=== PATIENT | male | born 1960 | race Caucasian/White ===

== ENCOUNTER → 2016-07-13 | Outpatient (CLI) | payer MEDICARE ==
[2016-07-13 08:53] LABS: HEMATOCRIT 41.9 % (37.9-51.0); HEMOGLOBIN 13.8 g/dL (13.5-17.0); HGB HCT DIFFERENCE -0.5; MEAN CORPUSCULAR HEMOGLOBIN 30.2 pg (27.0-33.4); MEAN CORPUSCULAR HGB CONC 32.9 g/dL (32.0-36.0); MEAN CORPUSCULAR VOLUME 92 fl (80-97); RED BLOOD COUNT 4.57 10^6/uL (4.35-5.55); RED CELL DISTRIBUTION WIDTH 14.7 % (11.5-14.0); WHITE BLOOD COUNT 8.1 10^3/uL (4.0-10.5)
[2016-07-13 09:08] LABS: APPEARANCE,URINE CLOUDY; BILIRUBIN,URINE NEGATIVE (NEGATIVE); GLUCOSE, URINE >=500 mg/dL (NEGATIVE); KETONES,URINE NEGATIVE (NEGATIVE); LEUKOCYTE ESTERASE,URINE LARGE (NEGATIVE); NITRITE,URINE NEGATIVE (NEGATIVE); PROTEIN,URINE 100 mg/dL (NEGATIVE); URINE SPECIFIC GRAVITY 1.012; UROBILINOGEN,URINE NEGATIVE mg/dL (<2.0)
[2016-07-13 09:38] LABS: ANION GAP 15 (5-19); BLOOD UREA NITROGEN 24 mg/dL (7-20); CARBON DIOXIDE 23 mmol/L (22-30); CHLORIDE 104 mmol/L (98-107); CREATININE RESULT 2.45 mg/dL (0.52-1.25); GLUCOSE 251 mg/dL (75-110); POTASSIUM 4.3 mmol/L (3.6-5.0); SODIUM 142.3 mmol/L (137-145)
== END ==
LOC: OD 07:41
PROVIDERS: ATTEND Internal Medicine Nephrology
DX: I12.9 Hypertensive chronic kidney disease with stage 1 through stage 4 chronic kidney disease, or unspecified chronic kidney disease (principal); N18.2 Chronic kidney disease, stage 2 (mild); E11.9 Type 2 diabetes mellitus without complications; R80.9 Proteinuria, unspecified
CPT/HCPCS: 36415; 80048; 81001; 85027

== ENCOUNTER 2016-07-31 15:39 | Inpatient (IN) | payer MEDICARE ==
--- NOTE | 2016-07-31 17:18 | ER Document Report ---
ED Medical Screen (RME) - General Chief Complaint: Shortness Of Breath Stated Complaint: DIFFICULTY BREATHING Time Seen by Provider: 07/31/16 17:15 Mode of Arrival: Ambulatory Information source: Patient Notes: pt presents with SOB for 3 days. Obese, reports he is normally not SOB when ambulating but 3 days ago he started to have problems when walking. Denies f/v/ d, reports slight cough, hx enlarged heart, HTN, DM1 TRAVEL OUTSIDE OF THE [place] IN LAST 30 DAYS: No - Related Data Allergies/Adverse Reactions: amoxicillin trihydrate [From Amoxil] Allergy (Verified 07/31/16 15:58) Generalized rash mushrooms Allergy (Severe, Uncoded 07/31/16 15:58) Edema Past Medical History - Social History Family history: CAD, CVA, Hyperlipidemia, Hypertension, Malignancy - Past Medical History Cardiac Medical History: Reports: Hx Congestive Heart Failure - 2011 diastolic with pulmonary [id number] and Bmp7k, Hx Hypercholesterolemia, Hx Hypertension Pulmonary Medical History: Reports: Hx Asthma - fev=51% adviar$ albuterol prn, Hx Bronchitis, Hx Pneumonia Denies: Hx Tuberculosis Endocrine Medical History: Reports: Hx Diabetes Mellitus Type 1, Hx Diabetes Mellitus Type 2, Hx Hypothyroidism Renal/ Medical History: Reports: Hx Kidney Stones, Hx Renal Insufficiency - 25 %. Denies: Hx Peritoneal Dialysis Psychiatric Medical History: Reports: Hx Depression Past Surgical History: Reports: Hx Herniorrhaphy, Hx Kidney (Renal Surgery) - lithotripsy, Hx Umbilical Hernia, Other - lithtripsy. Denies: Hx Pacemaker - Immunizations Immunizations up to date: Yes Hx Diphtheria, Pertussis, Tetanus Vaccination: No Physical Exam - Vital signs Vitals: Pulse Resp BP Pulse Ox 94 20 150/84 H 95 07/31/16 15:58 07/31/16 15:58 07/31/16 15:58 07/31/16 15:58 Course - Vital Signs Vital signs: Temp Pulse Resp BP Pulse Ox 97.5 F 94 20 150/84 H 95 07/31/16 16:01 07/31/16 15:58 07/31/16 15:58 07/31/16 15:58 07/31/16 15:58
[2016-07-31 18:12] LABS: ABSOLUTE BASOPHILS # (AUTO) 0.1 10^3/uL (0.0-0.2); ABSOLUTE EOSINOPHILS # (AUTO) 0.5 10^3/uL (0.0-0.6); ABSOLUTE MONOCYTES (AUTO) 0.5 10^3/uL (0.1-1.4); ABSOLUTE NEUT (AUTO) 7.5 10^3/uL (1.7-8.2); EOSINOPHILS % (AUTO) 4.7 % (0-6); HEMATOCRIT 42.1 % (37.9-51.0); HEMOGLOBIN 13.6 g/dL (13.5-17.0); HGB HCT DIFFERENCE -1.3; LYMPHOCYTES % (AUTO) 18.7 % (13-45); MEAN CORPUSCULAR HEMOGLOBIN 29.8 pg (27.0-33.4); MEAN CORPUSCULAR HGB CONC 32.2 g/dL (32.0-36.0); MEAN CORPUSCULAR VOLUME 93 fl (80-97); RED BLOOD COUNT 4.55 10^6/uL (4.35-5.55); SEGMENTED NEUTROPHILS % (AUTO) 70.6 % (42-78); WHITE BLOOD COUNT 10.7 10^3/uL (4.0-10.5)
[2016-07-31 18:21] LABS: ALANINE AMINOTRANSFERASE 31 U/L (21-72); ALBUMIN 3.6 g/dL (3.5-5.0); ALKALINE PHOSPHATASE 91 U/L (38-126); ANION GAP 14 (5-19); ASPARTATE AMINO TRANSFERASE 23 U/L (17-59); BILIRUBIN,DIRECT 0.4 mg/dL (0.0-0.4); BILIRUBIN,TOTAL 0.6 mg/dL (0.2-1.3); BLOOD UREA NITROGEN 22 mg/dL (7-20); CALCIUM 9.4 mg/dL (8.4-10.2); CARBON DIOXIDE 23 mmol/L (22-30); CHLORIDE 106 mmol/L (98-107); CREATININE RESULT 2.57 mg/dL (0.52-1.25); GLUCOSE 239 mg/dL (75-110); POTASSIUM 3.9 mmol/L (3.6-5.0); SODIUM 142.5 mmol/L (137-145); TOTAL PROTEIN 7.1 g/dL (6.3-8.2)
--- NOTE | 2016-07-31 19:04 | ER Document Report ---
ED General - General Chief Complaint: Shortness Of Breath Stated Complaint: DIFFICULTY BREATHING Time Seen by Provider: 07/31/16 17:15 Mode of Arrival: Ambulatory Notes: Patient is a 56-year-old male with past mental history of morbid obesity, hypertension, hyperlipidemia, CHF who presents with 3 days of progressively worsening exertional dyspnea. States that he becomes very short of breath with minimal exertion at this is not normal for him. Noticed it does resolve after he rests. He denies any associated chest pain, nausea, vomiting or diaphoresis. Denies any pleuritic pain. Nothing improves or worsens his symptoms. He has not seen his primary care doctor regarding today's concerns. Denies a history of similar symptoms in the past. TRAVEL OUTSIDE OF THE [place] IN LAST 30 DAYS: No - Related Data Allergies/Adverse Reactions: amoxicillin trihydrate [From Amoxil] Allergy (Verified 07/31/16 15:58) Generalized rash mushrooms Allergy (Severe, Uncoded 07/31/16 15:58) Edema Past Medical History - General Information source: Patient - Social History Smoking Status: Never Smoker Frequency of alcohol use: None Drug Abuse: None Lives with: Alone Family History: Arthritis, CAD, DM, Hyperlipidemia, Hypertension, Malignancy Patient has suicidal ideation: No Patient has homicidal ideation: No - Past Medical History Cardiac Medical History: Reports: Hx Congestive Heart Failure - 2011 diastolic with pulmonary [id number] and Bmp7k, Hx Hypercholesterolemia, Hx Hypertension Pulmonary Medical History: Reports: Hx Asthma - fev=51% adviar$ albuterol prn, Hx Bronchitis, Hx Pneumonia Denies: Hx Tuberculosis Endocrine Medical History: Reports: Hx Diabetes Mellitus Type 1, Hx Diabetes Mellitus Type 2, Hx Hypothyroidism Renal/ Medical History: Reports: Hx Kidney Stones, Hx Renal Insufficiency - 25 %. Denies: Hx Peritoneal Dialysis Psychiatric Medical History: Reports: Hx Depression Past Surgical History: Reports: Hx Herniorrhaphy, Hx Kidney (Renal Surgery) - lithotripsy, Hx Umbilical Hernia, Other - lithtripsy. Denies: Hx Pacemaker - Immunizations Immunizations up to date: Yes Hx Diphtheria, Pertussis, Tetanus Vaccination: No Hx Pneumococcal Vaccination: 03/25/11 Review of Systems - Review of Systems Notes: Constitutional: Negative for fever. HENT: Negative for sore throat. Eyes: Negative for visual changes. Cardiovascular: Negative for chest pain. Respiratory: Positive for shortness of breath. Gastrointestinal: Negative for abdominal pain, vomiting or diarrhea. Genitourinary: Negative for dysuria. Musculoskeletal: Negative for back pain. Skin: Negative for rash. Neurological: Negative for headaches, weakness or numbness. 10 point ROS negative except as marked above and in HPI. Physical Exam - Vital signs Vitals: Pulse Resp BP Pulse Ox 94 20 150/84 H 95 07/31/16 15:58 07/31/16 15:58 07/31/16 15:58 07/31/16 15:58 Interpretation: Hypertensive Notes: PHYSICAL EXAMINATION: GENERAL: Morbidly obese. Well-appearing, well-nourished and in no acute distress. HEAD: Atraumatic, normocephalic. EYES: Pupils equal round and reactive to light, extraocular movements intact, sclera anicteric, conjunctiva are normal. ENT: nares patent, oropharynx clear without exudates. Moist mucous membranes. NECK: Normal range of motion, supple without lymphadenopathy LUNGS: Breath sounds clear to auscultation bilaterally and equal. No wheezes rales or rhonchi. HEART: Regular rate and rhythm without murmurs ABDOMEN: Soft, nontender, normoactive bowel sounds. No guarding, no rebound. No masses appreciated. EXTREMITIES: Normal range of motion, 2+ pitting edema in the bilateral lower extremities NEUROLOGICAL: No focal neurological deficits. Trace edema in the bilateral lower extremities PSYCH: Normal mood, normal affect. SKIN: Warm, Dry, normal turgor, no rashes or lesions noted. Course - Re-evaluation Re-evalutation: 07/31/16 19:01 Patient presents with exertional dyspnea for the past 3 days. No tachypnea, tachycardia, or hypoxemia at the time of my assessment. Patient was not tachypneic at time of arrival but this does resolve if he rests. He denies any chest pain and his EKG does not show any ischemic changes. Troponin is pending. His pro BNP is markedly elevated which it has not been in the past though there is no evidence of vascular congestion on exam or on chest x-ray. He has no overt pitting edema although he does have trace edema in the bilateral lower extremities which she states is baseline. Patient's clinical history is not consistent with an acute pulmonary embolus as he has no dyspnea at rest, denies any pleuritic pain, and has no lower extremity swelling. Likewise he is not tachycardic or hypoxemic. No evidence of right axis deviation or right bundle branch block on EKG. Will therefore not proceed with further evaluation for this diagnosis. I think the most likely diagnosis at this point is progressive cardiomyopathy from patient's morbid obesity and uncontrolled hypertension. This is supported by patient's markedly elevated proBNP as well as his symptoms. An alternative consideration would be coronary artery disease with anginal symptoms manifested as shortness of breath with exertion. Again this would not be consistent with unstable angina as his symptoms do completely resolve with rest. 2049-patient's troponin is in the indeterminate range at 0.05 which is not a chronic elevation for him. He remains without chest pain. However given his elevation he will be admitted to the hospital. I discussed with Dr. Luna who will admit the patient. The patient has been started on IV Lasix and has been given a dose of aspirin. - Vital Signs Vital signs: Temp Pulse Resp BP Pulse Ox 97.3 F 86 20 162/101 H 96 07/31/16 23:18 07/31/16 23:18 07/31/16 23:18 07/31/16 23:18 07/31/16 23:18 - Laboratory Result Diagrams: 07/31/16 17:57 07/31/16 17:57 Laboratory results interpreted by me: 07/31/16 07/31/16 07/31/16 17:57 17:57 17:57 WBC 10.7 H RDW 15.0 H BUN 22 H Creatinine 2.57 H Est GFR ( Amer) 31 L Est GFR (Non-Af Amer) 26 L Glucose 239 H NT-Pro-B Natriuret Pep 5480 H - Diagnostic Test Radiology reviewed: Image reviewed, Reports reviewed Radiology results interpreted by de: 07/31/16 20:51 Chest x-ray: Increased vascular congestion and cardiomegaly without overt pulmonary edema - EKG Interpretation by Me Additional EKG results interpreted by de: 07/31/16 20:51 Normal sinus rhythm. Rate 87. PVCs. No ST elevations or depressions. QTC is 472. Discharge - Discharge Clinical Impression: Elevated troponin CHF exacerbation Qualifiers: Congestive heart failure type: unspecified congestive heart failure type Qualified Code(s): I50.9 - Heart failure, unspecified Condition: Fair Disposition: ADMITTED INPATIENT Admitting Provider: Jeremy Unit Admitted: Telemetry
[2016-07-31] MEDS ORDERED: FUROSEMIDE INJ/PF 20 MG/2 ML SDV IV ONE (20:37)
[2016-07-31] MEDS ORDERED: ASPIRIN 81 MG TABLET, CHEWABLE PO ONE (20:38)
--- NOTE | 2016-07-31 22:05 | EKG REPORT ---
SEVERITY:- ABNORMAL ECG - SINUS RHYTHM VENTRICULAR PREMATURE COMPLEX LEFT ANTERIOR FASCICULAR BLOCK BORDERLINE R WAVE PROGRESSION, ANTERIOR LEADS BORDERLINE T ABNORMALITIES, ANT-LAT LEADS : Confirmed by: Leah Lees 31-Jul-2016 22:03:58
[2016-08-01] MEDS ORDERED: METOPROLOL TARTRATE 50 MG TABLET PO ONE (01:00)
[2016-08-01 04:34] LABS: ANION GAP 13 (5-19); BLOOD UREA NITROGEN 23 mg/dL (7-20); CALCIUM 8.9 mg/dL (8.4-10.2); CARBON DIOXIDE 22 mmol/L (22-30); CHLORIDE 107 mmol/L (98-107); CREATININE RESULT 2.61 mg/dL (0.52-1.25); GLUCOSE 164 mg/dL (75-110); POTASSIUM 3.8 mmol/L (3.6-5.0); SODIUM 142.1 mmol/L (137-145)
[2016-08-01] MEDS ORDERED: GLUCAGON,HUMAN RECOMB 1 MG INJ IM PRN (05:25)
[2016-08-01] MEDS ORDERED: DEXTROSE 40% GEL 15 GM TUBE PO PRN ×2 (05:25)
[2016-08-01] MEDS ORDERED: DEXTROSE 50%-WATER 25 GM/50 ML DISP.SYRIN IV PRN ×2 (05:25)
[2016-08-01] MEDS: METOCLOPRAMIDE HCL 10 MG TABLET PO SCH ×4 (07:43→22:05)
[2016-08-01] MEDS: ENOXAPARIN SODIUM INJ 30 MG/0.3 ML DISP.SYRIN SUBCUT SCH (07:45)
[2016-08-01] MEDS: HUM INSULIN NPH/REG INSULIN HM 100 UNIT/1 ML 3 ML SUBCUT SCH ×2 (07:47→17:59)
--- NOTE | 2016-08-01 08:26 | PDOC H&P ---
History of Present Illness Admission Date/PCP: 08/01/16 00:27 BAILEY GARCIA MD Patient complains of: 1 week increased campa History of Present Illness: SANTA SANTANA is a 56 year old male with morbid obesity, diastolic failure, pulmonary hypertension, & lymphedema on disability since 2005 for that. He was on furosemide 20mg qd till february admission for [facility] with cr3.3. Now campa without pnd. Past Medical History Cardiac Medical History: Reports: Congestive Heart Failure - acute & chronic diastolic, DVT, Hyperlipidema, Hypertension Pulmonary Medical History: Reports: Asthma, Bronchitis, Pneumonia Denies: Tuberculosis Endocrine Medical History: Reports: Diabetes Mellitus Type 2, Hypothyroidism Renal/ Medical History: Reports: Chronic Kidney Disease Malignancy Medical History: Reports: None GI Medical History: Reports: Other - gastroparesis Musculoskeltal Medical History: Reports: None Psychiatric Medical History: Reports: Depression Past Surgical History Past Surgical History: Reports: Herniorrhaphy, Other - lithtripsy Denies: Pacemaker Social History Information Source: Office Lives with: Alone Smoking Status: Never Smoker Frequency of Alcohol Use: None Hx Recreational Drug Use: No Drugs: None Hx Prescription Drug Abuse: No - Advance Directive Resuscitation Status: Full Code Family History Family History: Arthritis, CAD, DM, Hyperlipidemia, Hypertension, Malignancy Parental Family History Reviewed: Yes Children Family History Reviewed: Yes Sibling(s) Family History Reviewed.: Yes Medication/Allergy Home Medications: Amlodipine Besylate [Norvasc 5 mg Tablet] 5 mg PO DAILY 08/01/16 Aspirin [Aspirin 81 mg Chewable Tablet] 81 mg PO DAILY 08/01/16 Hum Insulin NPH/Reg Insulin Hm [Novolin 70-30 100 Unit/Ml Vial] 100 unit SQ BID 08/01/16 Lactulose 20 gm PO DAILY 08/01/16 Levothyroxine Sodium [Synthroid] 50 mcg PO DAILY 08/01/16 Losartan Potassium [Cozaar 25 mg Tablet] 25 mg PO DAILY 08/01/16 Metoclopramide HCl [Reglan] 10 mg PO ACHS 08/01/16 Simvastatin [Zocor 20 mg Tablet] 20 mg PO QHS 08/01/16 Allergies/Adverse Reactions: amoxicillin trihydrate [From Amoxil] Allergy (Verified 07/31/16 15:58) Generalized rash mushrooms Allergy (Severe, Uncoded 07/31/16 15:58) Edema Review of Systems Constitutional: ABSENT: fever(s), headache(s) Nose, Mouth, and Throat: ABSENT: sore throat Cardiovascular: PRESENT: dyspnea on exertion, edema. ABSENT: chest pain, orthropnea Respiratory: PRESENT: cough. ABSENT: sputum Gastrointestinal: PRESENT: constipation. ABSENT: abdominal pain, diarrhea, hematochezia, melena, vomiting Genitourinary: ABSENT: difficulty urinating, dysuria, hematuria Physical Exam Vital Signs: Temp Pulse Resp BP Pulse Ox 97.2 F 76 19 137/89 H 91 L 08/01/16 04:00 08/01/16 04:00 08/01/16 04:00 08/01/16 04:00 08/01/16 04:00 Intake & Output 07/31/16 08/01/16 08/02/16 07:59 07:59 07:59 Intake Total 400 Output Total 550 Balance -150 General appearance: PRESENT: no acute distress Neck exam: ABSENT: lymphadenopathy, meningismus, tenderness, thyromegaly, tracheal deviation Respiratory exam: PRESENT: clear to auscultation jose Cardiovascular exam: ABSENT: diastolic murmur, irregular rhythm, systolic murmur GI/Abdominal exam: ABSENT: mass, organolmegaly, tenderness Extremities exam: PRESENT: pedal edema - 2+ Neurological exam: PRESENT: oriented to situation Psychiatric exam: PRESENT: appropriate affect Results Laboratory Results: 08/01/16 03:56 Labs- Last Values WBC 10.7 10^3/uL (4.0-10.5) H 07/31/16 17:57 RBC 4.55 10^6/uL (4.35-5.55) 07/31/16 17:57 Hgb 13.6 g/dL (13.5-17.0) 07/31/16 17:57 Hct 42.1 % (37.9-51.0) 07/31/16 17:57 MCV 93 fl (80-97) 07/31/16 17:57 MCH 29.8 pg (27.0-33.4) 07/31/16 17:57 MCHC 32.2 g/dL (32.0-36.0) 07/31/16 17:57 RDW 15.0 % (11.5-14.0) H 07/31/16 17:57 Plt Count 227 10^3/uL (150-450) 07/31/16 17:57 Seg Neutrophils % 70.6 % (42-78) 07/31/16 17:57 Lymphocytes % 18.7 % (13-45) 07/31/16 17:57 Monocytes % 5.0 % (3-13) 07/31/16 17:57 Eosinophils % 4.7 % (0-6) 07/31/16 17:57 Basophils % 1.0 % (0-2) 07/31/16 17:57 Absolute Neutrophils 7.5 10^3/uL (1.7-8.2) 07/31/16 17:57 Absolute Lymphocytes 2.0 10^3/uL (0.5-4.7) 07/31/16 17:57 Absolute Monocytes 0.5 10^3/uL (0.1-1.4) 07/31/16 17:57 Absolute Eosinophils 0.5 10^3/uL (0.0-0.6) 07/31/16 17:57 Absolute Basophils 0.1 10^3/uL (0.0-0.2) 07/31/16 17:57 Sodium 142.1 mmol/L (137-145) 08/01/16 03:56 Potassium 3.8 mmol/L (3.6-5.0) 08/01/16 03:56 Chloride 107 mmol/L (98-107) 08/01/16 03:56 Carbon Dioxide 22 mmol/L (22-30) 08/01/16 03:56 Anion Gap 13 (5-19) 08/01/16 03:56 BUN 23 mg/dL (7-20) H 08/01/16 03:56 Creatinine 2.61 mg/dL (0.52-1.25) H 08/01/16 03:56 Est GFR ( Amer) 31 (>60) L 08/01/16 03:56 Est GFR (Non-Af Amer) 25 (>60) L 08/01/16 03:56 Glucose 164 mg/dL (75-110) H 08/01/16 03:56 Calcium 8.9 mg/dL (8.4-10.2) 08/01/16 03:56 Total Bilirubin 0.6 mg/dL (0.2-1.3) 07/31/16 17:57 Direct Bilirubin 0.4 mg/dL (0.0-0.4) 07/31/16 17:57 Indirect Bilirubin Not Reportable 07/31/16 17:57 Neonat Total Bilirubin Not Reportable 07/31/16 17:57 AST 23 U/L (17-59) 07/31/16 17:57 ALT 31 U/L (21-72) 07/31/16 17:57 Alkaline Phosphatase 91 U/L (38-126) 07/31/16 17:57 Troponin I 0.054 ng/mL 07/31/16 17:57 NT-Pro-B Natriuret Pep 5480 pg/mL (5-900) H 07/31/16 17:57 Total Protein 7.1 g/dL (6.3-8.2) 07/31/16 17:57 Albumin 3.6 g/dL (3.5-5.0) 07/31/16 17:57 EKG Comments: bland Impressions: Chest X-Ray 07/31/16 17:15 IMPRESSION: Borderline cardiomegaly without CHF. Assessment & Plan - Diagnosis (1) Diastolic dysfunction with acute on chronic heart failure Is this a current diagnosis for this admission?: YesPlan: iv furosemide 40qd - Time Time Spent: 30 to 50 Minutes Medications reviewed and adjusted accordingly: Yes Anticipated discharge: Home Within: within 48 hours - Inpatient Certification Medical Necessity: Significant Comorbidiites Make Outpatient Treatment Too Risky , Need Close Monitoring Due to Risk of Patient Decompensation, Need For Continuous Telemetry Monitoring, Risk of Complication if Not Cared For in Hospital, Risk of Diagnosis Which Will Require Inpatient Eval/Care/Monitoring
[2016-08-01] MEDS: METOPROLOL TARTRATE 50 MG TABLET PO SCH ×2 (09:36→18:02)
[2016-08-01] MEDS: BUDESONIDE/FORMOTEROL 160-4.5 MCG 60 PUFF/6 GM MDI IH SCH ×2 (09:36→22:05)
[2016-08-01] MEDS: FAMOTIDINE 20 MG TABLET PO SCH ×2 (09:37→22:06)
[2016-08-01] MEDS: FUROSEMIDE INJ/PF 40 MG/4 ML SDV IV SCH (09:37)
[2016-08-01] MEDS: LEVOTHYROXINE SODIUM 0.05 MG TABLET PO SCH (09:37)
[2016-08-01] MEDS: ASPIRIN 81 MG TABLET, ENT COATED PO SCH (09:37)
--- NOTE | 2016-08-01 12:07 | XCELERA REPORT ---
[address] [address] Transthoracic Echocardiogram Report Name: SANTA SANTANA Age: 56 yrs Gender: Male : 1960 Patient Status: Inpatient Patient Location: 5\S\531\S\A Study Date: 08/01/2016 11:00 AM Height: 66 in Weight: 352 lb BSA: 2.5 m2 Procedure: A two-dimensional transthoracic echocardiogram with color flow and Doppler was performed. Study Quality: Technically suboptimal. The study was technically limited with all images being suboptimal in quality. Reason For Study: chf History: CHF. Ordering Physician: BAILEY GARCIA Performed By: Angela Nassar Interpretation Summary The left ventricle is normal in size. There is normal left ventricular wall thickness. LV EF is > than 65% Left ventricular systolic function is normal. Doppler measurements suggest impaired left ventricular relaxation, which is associated with grade I/IV or mild diastolic dysfunction Probably no regional wall motion abnormality. There is no thrombus. The right ventricle is grossly normal size. The right ventricle is not well visualized secondary to technical limitations The right atrium is normal. The left atrial size is normal. The interatrial septum is intact with no evidence for an atrial septal defect. There is no evidence of mitral valve prolapse. There is no mitral valve stenosis. There is no mitral regurgitation noted. The aortic valve is mildly calcified There is no aortic valvular vegetation. There is no aortic valve stenosis There is no LVOT obstruction. No aortic regurgitation is present. There is no tricuspid stenosis. There is a trace amount of tricuspid regurgitation Unable to calculate RVSP due to insufficientt TR jet. The pulmonic valve is not well visualized. There is no pericardial effusion. MMode/2D Measurements \T\ Calculations RVDd: 2.8 cm LVIDd: 5.2 cmFS: 38.0 % Ao root diam: 3.7 cm IVSd: 1.0 cm LVIDs: 3.2 cmEDV(Teich): 126.7 ml LVPWd: 1.0 cmESV(Teich): 40.8 ml Ao root area: 10.5 cm2 EF(Teich): 67.8 % LA dimension: 3.1 cm LVOT diam: 2.0 cm LVOT area: 3.2 cm2 Doppler Measurements \T\ Calculations MV E max deepak: MV P1/2t max deepak: Ao V2 max: LV V1 max P.9 cm/sec 65.6 cm/sec 171.1 cm/sec 2.4 mmHg MV A max deepak: MV P1/2t: 59.5 msec Ao max PG: LV V1 max: 96.4 cm/sec MVA(P1/2t): 3.7 cm2 11.7 mmHg 78.1 cm/sec MV E/A: 0.68 MV dec slope: JIMY(V,D): 1.5 cm2 322.8 cm/sec2 PA V2 max: 80.2 cm/sec PA max P.6 mmHg Left Ventricle The left ventricle is normal in size. There is normal left ventricular wall thickness. LV EF is > than 65%. Left ventricular systolic function is normal. Doppler measurements suggest impaired left ventricular relaxation, which is associated with grade I/IV or mild diastolic dysfunction. Probably no regional wall motion abnormality. There is no thrombus. There is no ventricular septal defect visualized. Right Ventricle The right ventricle is grossly normal size. The right ventricle is not well visualized secondary to technical limitations. Atria The right atrium is normal. The left atrial size is normal. The interatrial septum is intact with no evidence for an atrial septal defect. Mitral Valve There is mild mitral annular calcification. There is no evidence of mitral valve prolapse. There is no vegetation seen on the mitral valve. There is no mitral valve stenosis. There is no mitral regurgitation noted. Aortic Valve The aortic valve is mildly calcified. There is no aortic valvular vegetation. There is no aortic valve stenosis. There is no LVOT obstruction. No aortic regurgitation is present. Tricuspid Valve There is no tricuspid stenosis. There is a trace amount of tricuspid regurgitation. Unable to calculate RVSP due to insufficientt TR jet. Pulmonic Valve The pulmonic valve is not well visualized. Great Vessels The aortic root is normal size. Effusions There is no pericardial effusion. : BAILEY GARCIA > Amanda Grijalva
[2016-08-01] MEDS ORDERED: OXYCODONE HCL IR 5 MG TABLET PO PRN (12:57)
[2016-08-01] MEDS: TRIAMCINOLONE ACETONIDE 0.1% CREAM 15 GM TOP SCH (18:01)
[2016-08-01] MEDS: SIMVASTATIN 10 MG TABLET PO SCH (22:05)
[2016-08-02 04:51] LABS: ANION GAP 15 (5-19); BLOOD UREA NITROGEN 31 mg/dL (7-20); CALCIUM 8.5 mg/dL (8.4-10.2); CARBON DIOXIDE 22 mmol/L (22-30); CHLORIDE 106 mmol/L (98-107); CREATINE KINASE 30 U/L (55-170); CREATININE RESULT 2.53 mg/dL (0.52-1.25); GLUCOSE 65 mg/dL (75-110); POTASSIUM 3.7 mmol/L (3.6-5.0); SODIUM 143.4 mmol/L (137-145)
[2016-08-02 04:58] LABS: CREATINE KINASE MB 0.59 ng/mL (<4.55); TROPONIN I 0.027 ng/mL
--- NOTE | 2016-08-02 07:55 | PDOC PROGRESS REPORT ---
Subjective Progress Note for:: 08/02/16 Subjective:: campa not baseline Physical Exam Vital Signs: Temp Pulse Resp BP Pulse Ox 98.1 F 77 22 H 124/73 91 L 08/02/16 00:31 08/02/16 07:00 08/02/16 00:31 08/02/16 00:31 08/02/16 00:31 Intake & Output 07/31/16 08/01/16 08/02/16 07:59 07:59 07:59 Intake Total 360 Output Total 325 Balance 35 General appearance: PRESENT: no acute distress Respiratory exam: PRESENT: clear to auscultation jose Cardiovascular exam: ABSENT: diastolic murmur, irregular rhythm, systolic murmur GI/Abdominal exam: ABSENT: mass, organolmegaly, tenderness Extremities exam: PRESENT: pedal edema - 1+ Neurological exam: PRESENT: oriented to situation Psychiatric exam: PRESENT: appropriate affect Results Laboratory Results: 08/02/16 03:59 08/02/16 03:59 Sodium 143.4 Potassium 3.7 Chloride 106 Carbon Dioxide 22 Anion Gap 15 BUN 31 H Creatinine 2.53 H Est GFR ( Amer) 32 L Est GFR (Non-Af Amer) 26 L Glucose 65 L Calcium 8.5 08/02/16 08/02/16 03:59 03:59 Creatine Kinase 30 L CK-MB (CK-2) 0.59 Troponin I 0.027 Impressions: Chest X-Ray 07/31/16 17:15 IMPRESSION: Borderline cardiomegaly without CHF. Assessment & Plan - Diagnosis (1) Diastolic dysfunction with acute on chronic heart failure Is this a current diagnosis for this admission?: YesPlan: bun22,31. Echo:only ddf1. Continue furosemide 40iv. Will need 20mg qd at home in spite of ckd.
[2016-08-02] MEDS: HUM INSULIN NPH/REG INSULIN HM 100 UNIT/1 ML 3 ML SUBCUT SCH ×3 (08:09→16:40)
[2016-08-02] MEDS: METOCLOPRAMIDE HCL 10 MG TABLET PO SCH ×4 (08:10→22:05)
[2016-08-02] MEDS: ENOXAPARIN SODIUM INJ 30 MG/0.3 ML DISP.SYRIN SUBCUT SCH (08:10)
[2016-08-02] MEDS: FAMOTIDINE 20 MG TABLET PO SCH ×2 (09:01→22:05)
[2016-08-02] MEDS: METOPROLOL TARTRATE 50 MG TABLET PO SCH ×3 (09:01→22:06)
[2016-08-02] MEDS: LEVOTHYROXINE SODIUM 0.05 MG TABLET PO SCH (09:01)
[2016-08-02] MEDS: BUDESONIDE/FORMOTEROL 160-4.5 MCG 60 PUFF/6 GM MDI IH SCH ×2 (09:02→22:05)
[2016-08-02] MEDS: FUROSEMIDE INJ/PF 40 MG/4 ML SDV IV SCH (09:02)
[2016-08-02] MEDS: ASPIRIN 81 MG TABLET, ENT COATED PO SCH (09:02)
[2016-08-02] MEDS: TRIAMCINOLONE ACETONIDE 0.1% CREAM 15 GM TOP SCH ×2 (09:03→17:35)
[2016-08-02] MEDS: SIMVASTATIN 10 MG TABLET PO SCH (22:06)
[2016-08-03 07:42] LABS: ANION GAP 13 (5-19); BLOOD UREA NITROGEN 38 mg/dL (7-20); CALCIUM 8.9 mg/dL (8.4-10.2); CARBON DIOXIDE 24 mmol/L (22-30); CHLORIDE 105 mmol/L (98-107); CREATININE RESULT 2.78 mg/dL (0.52-1.25); GLUCOSE 77 mg/dL (75-110); POTASSIUM 3.9 mmol/L (3.6-5.0); SODIUM 141.9 mmol/L (137-145)
[2016-08-03] MEDS: HUM INSULIN NPH/REG INSULIN HM 100 UNIT/1 ML 3 ML SUBCUT SCH ×2 (07:55→16:15)
[2016-08-03] MEDS: METOCLOPRAMIDE HCL 10 MG TABLET PO SCH ×4 (07:56→21:27)
[2016-08-03] MEDS: ENOXAPARIN SODIUM INJ 30 MG/0.3 ML DISP.SYRIN SUBCUT SCH (07:56)
--- NOTE | 2016-08-03 08:32 | PDOC PROGRESS REPORT ---
Subjective Progress Note for:: 08/03/16 Subjective:: 2am 2 normal stools then BLQ steady new pain. Physical Exam Vital Signs: Temp Pulse Resp BP Pulse Ox 97.5 F 61 16 148/71 H 98 08/03/16 07:53 08/03/16 07:53 08/03/16 07:53 08/03/16 07:53 08/03/16 07:53 Intake & Output 08/02/16 08/03/16 08/04/16 07:59 07:59 07:59 Intake Total 360 2330 Output Total 325 2600 Balance 35 -270 Weight 345 lb 14.484 oz General appearance: PRESENT: mild distress Respiratory exam: PRESENT: clear to auscultation jose Cardiovascular exam: ABSENT: diastolic murmur, irregular rhythm, systolic murmur GI/Abdominal exam: PRESENT: tenderness - moderate BLQ.. ABSENT: guarding, mass , organolmegaly, rebound Extremities exam: PRESENT: pedal edema - 1+ Results Laboratory Results: 08/03/16 06:31 08/03/16 06:31 Sodium 141.9 Potassium 3.9 Chloride 105 Carbon Dioxide 24 Anion Gap 13 BUN 38 H Creatinine 2.78 H Est GFR ( Amer) 29 L Est GFR (Non-Af Amer) 24 L Glucose 77 Calcium 8.9 Impressions: Chest X-Ray 07/31/16 17:15 IMPRESSION: Borderline cardiomegaly without CHF. Assessment & Plan - Diagnosis (1) Diastolic dysfunction with acute on chronic heart failure Is this a current diagnosis for this admission?: YesPlan: campa baseline. BUN38 cr2.8=gfr24. Decrease furosemide to 20mg po daily. (2) Lower abdominal pain Is this a current diagnosis for this admission?: YesPlan: flat & upright cbc. ?ct without iv contrast
[2016-08-03 08:55] LABS: ABSOLUTE EOSINOPHILS # (AUTO) 0.4 10^3/uL (0.0-0.6); ABSOLUTE LYMPHOCYTES (AUTO) 1.6 10^3/uL (0.5-4.7); ABSOLUTE MONOCYTES (AUTO) 0.5 10^3/uL (0.1-1.4); ABSOLUTE NEUT (AUTO) 6.6 10^3/uL (1.7-8.2); BASOPHILS % (AUTO) 0.3 % (0-2); EOSINOPHILS % (AUTO) 4.6 % (0-6); HEMATOCRIT 39.2 % (37.9-51.0); HEMOGLOBIN 12.6 g/dL (13.5-17.0); HGB HCT DIFFERENCE -1.4; LYMPHOCYTES % (AUTO) 17.8 % (13-45); MEAN CORPUSCULAR HEMOGLOBIN 29.9 pg (27.0-33.4); MEAN CORPUSCULAR HGB CONC 32.2 g/dL (32.0-36.0); MEAN CORPUSCULAR VOLUME 93 fl (80-97); MONOCYTES % (AUTO) 5.4 % (3-13); RED BLOOD COUNT 4.22 10^6/uL (4.35-5.55); SEGMENTED NEUTROPHILS % (AUTO) 71.9 % (42-78); WHITE BLOOD COUNT 9.1 10^3/uL (4.0-10.5)
[2016-08-03] MEDS ORDERED: FUROSEMIDE 20 MG TABLET PO SCH (10:00)
[2016-08-03] MEDS: LEVOTHYROXINE SODIUM 0.05 MG TABLET PO SCH (10:25)
[2016-08-03] MEDS: FAMOTIDINE 20 MG TABLET PO SCH ×2 (10:25→21:27)
[2016-08-03] MEDS: METOPROLOL TARTRATE 50 MG TABLET PO SCH ×2 (10:25→21:27)
[2016-08-03] MEDS: ASPIRIN 81 MG TABLET, ENT COATED PO SCH (10:25)
[2016-08-03] MEDS: BUDESONIDE/FORMOTEROL 160-4.5 MCG 60 PUFF/6 GM MDI IH SCH ×2 (10:26→21:27)
[2016-08-03] MEDS: TRIAMCINOLONE ACETONIDE 0.1% CREAM 15 GM TOP SCH ×2 (10:26→17:00)
[2016-08-03] MEDS: SIMVASTATIN 10 MG TABLET PO SCH (21:27)
--- NOTE | 2016-08-04 06:49 | PDOC DISCHARGE SUMMARY ---
General - Admit/Disc Date/PCP Admission Date/Primary Care Provider: 08/01/16 14:34 BAILEY AGRCIA MD Discharge Date: 08/04/16 - Discharge Diagnosis (1) Diastolic dysfunction with acute on chronic heart failure Is this a current diagnosis for this admission?: Yes (2) Lower abdominal pain Is this a current diagnosis for this admission?: Yes - Additional Information Resuscitation Status: Full Code Discharge Activity: Activity As Tolerated, Balance Activity w/Rest, Weigh Daily Home Medications: Hum Insulin NPH/Reg Insulin Hm [Novolin 70-30 100 Unit/ml Vial] 100 unit SQ BID 08/01/16 Losartan Potassium [Cozaar 25 mg Tablet] 25 mg PO DAILY 08/01/16 Aspirin [Ecotrin 81 mg EC Tablet] 81 mg PO DAILY #100 tabec 08/04/16 Budesonide/Formoterol Fumarate [Symbicort HFA 160-4.5 mcg Inhaler 6 gm] 2 puff IH Q12 #0 inhaler 08/04/16 Furosemide [Lasix 20 mg Tablet] 20 mg PO DAILY #90 tablet 08/04/16 Levothyroxine Sodium [Synthroid 0.05 mg Tablet] 0.05 mg PO DAILY #0 tablet 08/04 Metoclopramide HCl [Reglan 10 mg Tablet] 10 mg PO ACHS #0 tablet 08/04/16 Metoprolol Tartrate [Lopressor 50 mg Tablet] 50 mg PO Q12 #0 tablet 08/04/16 Simvastatin [Zocor 10 mg Tablet] 20 mg PO QHS #0 tablet 08/04/16 Triamcinolone Acetonide [Aristocort 0.1% Cream] 1 applic TOP BID #0 tube History of Present Illness Patient complains of: campa History of Present Illness: SANTA SANTANA is a 56 year old male with morbid obesity, diastolic failure, pulmonary hypertension, & lymphedema on disability since 2005 for that. He was on furosemide 20mg qd till february admission for [place] with cr3.3. Now campa without pnd. Hospital Course Hospital Course: on furosemide 40mg IV dyspnea improved to baseline. Creatinine went from 2.6 to 2.8. BLQ pain yesterday prompted normal flat & upright and is now gone. Physical Exam Vital Signs: Temp Pulse Resp BP Pulse Ox 98.1 F 79 18 122/62 94 08/04/16 03:31 08/04/16 03:31 08/04/16 03:31 08/04/16 03:31 08/04/16 03:31 Intake & Output 08/02/16 08/03/16 08/04/16 07:59 07:59 07:59 Intake Total 360 2330 2020 Output Total 325 2600 1475 Balance 35 -270 545 Weight 345 lb 14.484 oz 347 lb 10.703 oz General appearance: PRESENT: no acute distress Respiratory exam: PRESENT: clear to auscultation jose Cardiovascular exam: ABSENT: diastolic murmur, irregular rhythm, systolic murmur GI/Abdominal exam: PRESENT: tenderness - mild LLQ. No guarding or rebound. ABSENT: mass, organolmegaly Extremities exam: ABSENT: pedal edema Neurological exam: PRESENT: oriented to situation Psychiatric exam: PRESENT: appropriate affect Results Laboratory Results: 08/03/16 06:31 08/03/16 06:31 08/03/16 08/03/16 06:31 06:31 WBC 9.1 RBC 4.22 L Hgb 12.6 L Hct 39.2 MCV 93 MCH 29.9 MCHC 32.2 RDW 15.0 H Plt Count 205 Seg Neutrophils % 71.9 Lymphocytes % 17.8 Monocytes % 5.4 Eosinophils % 4.6 Basophils % 0.3 Absolute Neutrophils 6.6 Absolute Lymphocytes 1.6 Absolute Monocytes 0.5 Absolute Eosinophils 0.4 Absolute Basophils 0.0 Sodium 141.9 Potassium 3.9 Chloride 105 Carbon Dioxide 24 Anion Gap 13 BUN 38 H Creatinine 2.78 H Est GFR ( Amer) 29 L Est GFR (Non-Af Amer) 24 L Glucose 77 Calcium 8.9 Impressions: Chest X-Ray 07/31/16 17:15 IMPRESSION: Borderline cardiomegaly without CHF. Abdomen X-Ray 08/03/16 00:00 IMPRESSION: BILATERAL RENAL CALCULI. NO RADIOGRAPHIC EVIDENCE FOR ACUTE ABDOMINAL DISEASE. Qualifiers PATEINT BEING DISCHARGED WITH ANY OF THE FOLLOWING DIAGNOSIS?: Heart Failure HF Pt being discharged on ACEI for LVEF less than 40%?: No Reason(s) for not prescribing ACEI:: Not indicated HF Pt being discharged on ARBS for LVEF less than 40%?: Yes HF Pt discharged on evidence-based Beta Ciera:: No Reason(s) for not prescribing evidence-based Beta Ciera:: Medical Contraindication Plan Discharge Plan: home. OV 9d
[2016-08-04 07:51] VITALS: BP 134/74
[2016-08-04] MEDS: METOCLOPRAMIDE HCL 10 MG TABLET PO SCH (08:05)
[2016-08-04] MEDS: HUM INSULIN NPH/REG INSULIN HM 100 UNIT/1 ML 3 ML SUBCUT SCH (08:05)
[2016-08-04] MEDS: ENOXAPARIN SODIUM INJ 30 MG/0.3 ML DISP.SYRIN SUBCUT SCH (08:05)
--- NOTE | 2016-08-11 13:25 | DISCHARGE SUMMARY E ---
Discharge Summary NAME: SANTA SANTANA : 1960 AGE: 56Y ADMITTED: 08/01/2016 DISCHARGED: 08/04/2016 ADDENDUM: While it is true that he has many comorbidities, I focused on the active ones while he was here. I did not change his treatment for diabetes with neuropathy, for renal calculi, or for hypertension. I did address his renal function while I was treating his congestive failure. If you look at the note, I mentioned that the creatinine went from 2.6 to 2.8 and I chose his discharge dose of furosemide at 20 mg accordingly. DICTATING PHYSICIAN: BAILEY GARCIA M.D. [id number] PHY#: [id number] ID: [id number] JOB#: [id number] ACCT: [id number] cc:BAILEY GARCIA M.D. >
--- NOTE | 2016-08-29 16:12 | Physician Advisory Note ---
Physician Advisor ProgressNote .: [facility] I have reviewed [facility] medical record for this patient. Physician Advisor Statement: DCS already has very nice documentation of d/c meds list & d/c activity, more than enough PE details. Here is an example, available for use by attending (it's ok to cut/paste from PA note if desired, since it isn't an official part of chart usable for coding) , of how to do this pt's DCS with sufficient documentation for coding - the dx.s , hosp course, & f/u parts: Dx.s: 1. Acute on chronic diastolic CHF 2. lower abd pain, suspect due to ____ * [vs: "etiology not clear"] 3. morbid obesity w/BMI 56 - (was mentioned in "HPI" part of DCS, along w/ next 2 dx.s, so coders would be able to pick those up) 4. chronic pulmonary hypertension 5. chronic lymphedema 6. DM type 2 w/polyneuropathy & CKD 7. CKD stage 4 8. HTN, essential 9. hypothyroidism 10. HLD (Hyperlipidemia) 11. type asthma [mild intermittent?] 12. kidney stones Hosp course: 56yo w/chr diast CHF, __ asthma, DM-2, chr lymphedema, obesity presented w/SOB, CALDERA, BNP significantly higher than before, new indeterminate trop-I, tachycardia , intermittent tachypnea, & O2 sat as low as 90% on RA initially. He had previously been on furosemide 20mg daily but this was stopped in Feb when he was admitted for JITENDRA w/Cr 3.3. Initial Cr was 2.57. ED gave IV Lasix & O2. He was brought in on furosemide 40mg IV daily and diuresed, with gradual improvement in acute sx. ECHO showed gr 1 diast dysfn, nl EF. CHF teaching was done. He showed hypoxemia in the 80s at times during the 1st 3 days, & was given O2. Cardiac enzymes were cycled but did not show evidence of cardiac ischemia. The trop I elevation was likely due to CKD. With diuresis, Cr climbed from 2.6 to 2.8. On 08/03, he developed acute abd pain. Xrays showed no acute findings. F/u CBC showed no leukocytosis or significant drop in H/H. As of 08/04, pt's abd pain was resolved, CALDERA was back to baseline, & he was d/c' d on furosemide 20mg daily. F/u: D/c to home, f/u appt 9days w/Dr. Luna. [Not everyone apparently recognizes what "OV 9d" means.] Hope this is helpful! CK
--- NOTE | 2016-09-02 18:30 | DISCHARGE SUMMARY E ---
Discharge Summary NAME: SANTA SANTANA : 1960 AGE: 56Y ADMITTED: 08/01/2016 DISCHARGED: 08/04/2016 ADDENDUM TO DISCHARGE SUMMARY: He has morbid obesity with a BMI of 56 and type 2 diabetes with chronic kidney disease, stage 4. His insulin was continued during and after his admission. We have discussed gastric bypass but he cannot afford that. His chronic kidney disease is being monitored by both me and Dr. Bey. DICTATING PHYSICIAN: BAILEY GARCIA M.D. [id number] PHY#: [id number] ID: [id number] JOB#: [id number] ACCT: [id number] cc:BAILEY GARCIA M.D. >
== END 2016-08-04 08:59 | disposition home or self-care (01) | DRG 291 ==
LOC: ER 15:39 → INTOOBSV 21:09 → UNDOADMOB 21:09 → EH 21:09 → 5 08-01 00:05 → EH 08-01 00:27 → OBSVTOIN 08-01 14:34
PROVIDERS: ADMIT Family Medicine; ATTEND Family Medicine
DX: I13.0 Hypertensive heart and chronic kidney disease with heart failure and stage 1 through stage 4 chronic kidney disease, or unspecified chronic kidney disease (principal); I50.33 Acute on chronic diastolic (congestive) heart failure; Z68.43 Body mass index [BMI] 50.0-59.9, adult; N18.9 Chronic kidney disease, unspecified; E11.22 Type 2 diabetes mellitus with diabetic chronic kidney disease; F32.9 Major depressive disorder, single episode, unspecified; E66.01 Morbid (severe) obesity due to excess calories; I27.2 Other secondary pulmonary hypertension; E78.5 Hyperlipidemia, unspecified; I89.0 Lymphedema, not elsewhere classified; R79.89 Other specified abnormal findings of blood chemistry; E03.9 Hypothyroidism, unspecified; R10.32 Left lower quadrant pain; Z88.0 Allergy status to penicillin; Z91.018 Allergy to other foods; Z82.49 Family history of ischemic heart disease and other diseases of the circulatory system; Z82.61 Family history of arthritis; Z80.9 Family history of malignant neoplasm, unspecified; Z87.442 Personal history of urinary calculi; Z86.718 Personal history of other venous thrombosis and embolism; Z79.82 Long term (current) use of aspirin; Z79.4 Long term (current) use of insulin; Z79.899 Other long term (current) drug therapy
CPT/HCPCS: 36415; 71020; 74020; 80048; 80053; 82550; 82553; 82962; 83880; 84484; 85025; 93005; 93010; 93306; 99285; G0378; J1650; J1815; J1940; J3490

== ENCOUNTER → 2016-11-13 | Outpatient (CLI) | payer MEDICARE ==
[2016-11-13 08:45] LABS: ANION GAP 11 (5-19); BLOOD UREA NITROGEN 38 mg/dL (7-20); CALCIUM 9.5 mg/dL (8.4-10.2); CARBON DIOXIDE 20 mmol/L (22-30); CHLORIDE 109 mmol/L (98-107); CREATININE RESULT 2.56 mg/dL (0.52-1.25); GLUCOSE 215 mg/dL (75-110); HEMATOCRIT 43.4 % (37.9-51.0); HEMOGLOBIN 14.1 g/dL (13.5-17.0); HGB HCT DIFFERENCE -1.1; MEAN CORPUSCULAR HEMOGLOBIN 29.3 pg (27.0-33.4); MEAN CORPUSCULAR HGB CONC 32.5 g/dL (32.0-36.0); MEAN CORPUSCULAR VOLUME 90 fl (80-97); POTASSIUM 4.7 mmol/L (3.6-5.0); RED BLOOD COUNT 4.82 10^6/uL (4.35-5.55); RED CELL DISTRIBUTION WIDTH 15.5 % (11.5-14.0); SODIUM 140.1 mmol/L (137-145); WHITE BLOOD COUNT 12.4 10^3/uL (4.0-10.5)
[2016-11-13 09:02] LABS: APPEARANCE,URINE CLOUDY; BILIRUBIN,URINE NEGATIVE (NEGATIVE); GLUCOSE, URINE 150 mg/dL (NEGATIVE); KETONES,URINE NEGATIVE (NEGATIVE); LEUKOCYTE ESTERASE,URINE LARGE (NEGATIVE); NITRITE,URINE NEGATIVE (NEGATIVE); PROTEIN,URINE 100 mg/dL (NEGATIVE); URINE SPECIFIC GRAVITY 1.012; UROBILINOGEN,URINE NEGATIVE mg/dL (<2.0)
== END ==
LOC: OD 07:27
PROVIDERS: ATTEND Physician Assistant Medical
DX: E11.22 Type 2 diabetes mellitus with diabetic chronic kidney disease (principal); I12.9 Hypertensive chronic kidney disease with stage 1 through stage 4 chronic kidney disease, or unspecified chronic kidney disease; N18.4 Chronic kidney disease, stage 4 (severe)
CPT/HCPCS: 36415; 80048; 81001; 85027

== ENCOUNTER 2016-11-20 09:34 | Inpatient (IN) | payer MEDICARE ==
[2016-11-20] MEDS ORDERED: IPRATROPIUM/ALBUTEROL 0.5-2.5 MG/3 ML AMPUL NEB ONE (09:59)
[2016-11-20] MEDS ORDERED: ALBUTEROL SULFATE 0.083% NEB 2.5 MG/3 ML AMPUL NEB ONE (10:29)
[2016-11-20 10:49] LABS: ABSOLUTE BASOPHILS # (AUTO) 0.1 10^3/uL (0.0-0.2); ABSOLUTE EOSINOPHILS # (AUTO) 0.2 10^3/uL (0.0-0.6); ABSOLUTE LYMPHOCYTES (AUTO) 1.9 10^3/uL (0.5-4.7); ABSOLUTE MONOCYTES (AUTO) 0.9 10^3/uL (0.1-1.4); ABSOLUTE NEUT (AUTO) 10.5 10^3/uL (1.7-8.2); BASOPHILS % (AUTO) 0.7 % (0-2); EOSINOPHILS % (AUTO) 1.6 % (0-6); HEMATOCRIT 38.3 % (37.9-51.0); HEMOGLOBIN 12.6 g/dL (13.5-17.0); HGB HCT DIFFERENCE -0.5; LYMPHOCYTES % (AUTO) 13.8 % (13-45); MEAN CORPUSCULAR HEMOGLOBIN 29.3 pg (27.0-33.4); MEAN CORPUSCULAR HGB CONC 32.8 g/dL (32.0-36.0); MEAN CORPUSCULAR VOLUME 89 fl (80-97); MONOCYTES % (AUTO) 6.5 % (3-13); RED BLOOD COUNT 4.29 10^6/uL (4.35-5.55); RED CELL DISTRIBUTION WIDTH 15.8 % (11.5-14.0); SEGMENTED NEUTROPHILS % (AUTO) 77.4 % (42-78); WHITE BLOOD COUNT 13.5 10^3/uL (4.0-10.5)
[2016-11-20 10:50] LABS: VENOUS BLOOD BASE EXCESS -6.1 mmol/L; VENOUS BLOOD HCO3 18.8 mmol/L (20-32); VENOUS BLOOD PCO2 35.2 mmHg (35-63); VENOUS BLOOD PH 7.35 (7.30-7.42)
[2016-11-20 10:59] LABS: PROTHROMBIN TIME 13.5 SEC (11.4-15.4)
[2016-11-20 11:04] LABS: BLOOD UREA NITROGEN 28 mg/dL (7-20); CARBON DIOXIDE 22 mmol/L (22-30); CHLORIDE 103 mmol/L (98-107); GLUCOSE 393 mg/dL (75-110); POTASSIUM 4.2 mmol/L (3.6-5.0); SODIUM 137.9 mmol/L (137-145)
[2016-11-20 11:05] LABS: ALANINE AMINOTRANSFERASE 24 U/L (21-72); ALBUMIN 3.2 g/dL (3.5-5.0); ALKALINE PHOSPHATASE 105 U/L (38-126); ANION GAP 13 (5-19); ASPARTATE AMINO TRANSFERASE 12 U/L (17-59); BILIRUBIN,DIRECT 0.5 mg/dL (0.0-0.4); BILIRUBIN,TOTAL 0.7 mg/dL (0.2-1.3); CREATINE KINASE 63 U/L (55-170); LIPASE 131.3 U/L (23-300); MAGNESIUM 1.9 mg/dL (1.6-2.3); TOTAL PROTEIN 6.6 g/dL (6.3-8.2)
[2016-11-20] MEDS ORDERED: FUROSEMIDE INJ/PF 40 MG/4 ML SDV IV ONE (11:10)
[2016-11-20 11:16] LABS: CREATINE KINASE MB 0.61 ng/mL (<4.55)
[2016-11-20 11:24] LABS: TROPONIN I 0.059 ng/mL
--- NOTE | 2016-11-20 12:20 | EKG REPORT ---
SEVERITY:- ABNORMAL ECG - SINUS TACHYCARDIA LEFT AXIS DEVIATION CONSIDER ANTEROSEPTAL INFARCT : Confirmed by: Amanda Grijalva MD 20-Nov-2016 12:19:40
--- NOTE | 2016-11-20 12:20 | ER Document Report ---
ED General - General Chief Complaint: Breathing Difficulty Stated Complaint: DIFFICULTY BREATHING Time Seen by Provider: 11/20/16 09:55 TRAVEL OUTSIDE OF THE [place] IN LAST 30 DAYS: No - HPI Patient complains to provider of: Difficulty in breathing Notes: Patient with a history of CHF and COPD coming in for difficulty breathing. Patient states ongoing for the last few days. Patient on initial evaluations found to be hypoxic with SPO2 less than 88 patient was placed on 2 L nasal cannula. Patient denies any cough or sputum production. Denies fevers or chills. Patient is resting comfortably upon my evaluation. Of note patient is morbidly obese states compliance with his medications at home. - Related Data Allergies/Adverse Reactions: amoxicillin trihydrate [From Amoxil] Allergy (Verified 11/20/16 09:42) Generalized rash mushrooms Allergy (Severe, Uncoded 11/20/16 09:42) Edema Home Medications: Current Home Medications Aspirin [Ecotrin 81 mg EC Tablet] 162 mg PO DAILY 11/20/16 [History] Simvastatin [Zocor 10 mg Tablet] 20 mg PO DAILY 11/20/16 [History] Triamcinolone Acetonide [Aristocort 0.1% Cream] 1 applic TOP BIDP PRN 11/20/16 [ History] Past Medical History - Social History Smoking Status: Never Smoker Chew tobacco use (# tins/day): No Frequency of alcohol use: None Drug Abuse: None Family History: Arthritis, CAD, DM, Hyperlipidemia, Hypertension, Malignancy Patient has suicidal ideation: No Patient has homicidal ideation: No - Past Medical History Cardiac Medical History: Reports: Hx Congestive Heart Failure - acute & chronic diastolic, Hx DVT, Hx Hypercholesterolemia, Hx Hypertension Pulmonary Medical History: Reports: Hx Asthma, Hx Bronchitis, Hx Pneumonia Denies: Hx Tuberculosis Endocrine Medical History: Reports: Hx Diabetes Mellitus Type 1, Hx Diabetes Mellitus Type 2, Hx Hypothyroidism Renal/ Medical History: Reports: Hx Kidney Stones, Hx Renal Insufficiency - 25 %. Denies: Hx Peritoneal Dialysis Psychiatric Medical History: Reports: Hx Depression Past Surgical History: Reports: Hx Herniorrhaphy, Hx Kidney (Renal Surgery) - lithotripsy, Hx Umbilical Hernia, Other - lithtripsy. Denies: Hx Pacemaker - Immunizations Immunizations up to date: Yes Hx Diphtheria, Pertussis, Tetanus Vaccination: No Hx Pneumococcal Vaccination: 03/25/11 Review of Systems - Review of Systems Constitutional: No symptoms reported EENT: No symptoms reported Cardiovascular: No symptoms reported Respiratory: Short of breath Gastrointestinal: No symptoms reported Genitourinary: No symptoms reported Male Genitourinary: No symptoms reported Musculoskeletal: No symptoms reported Skin: No symptoms reported Hematologic/Lymphatic: No symptoms reported Neurological/Psychological: No symptoms reported -: Yes All other systems reviewed and negative Physical Exam - Vital signs Vitals: Temp Pulse Resp BP Pulse Ox 97.7 F 110 H 28 H 135/91 H 87 L 11/20/16 09:42 11/20/16 09:42 11/20/16 09:42 11/20/16 09:42 11/20/16 09:42 Interpretation: Tachycardic, Hypoxic - General General appearance: Appears well, Alert - HEENT Head: Normocephalic, Atraumatic Eyes: Normal Pupils: PERRL - Respiratory Respiratory status: Other - Hypoxia Chest status: Nontender Breath sounds: Rales Chest palpation: Normal - Cardiovascular Rhythm: Regular Heart sounds: Normal auscultation Murmur: No - Abdominal Inspection: Morbidly Obese Distension: No distension Bowel sounds: Normal Tenderness: Nontender Organomegaly: No organomegaly - Back Back: Normal, Nontender - Extremities General upper extremity: Normal inspection, Nontender, Normal color, Normal ROM , Normal temperature General lower extremity: Normal inspection, Nontender, Edema - 2-3+ pitting edema, Normal color, Normal ROM, Normal temperature, Normal weight bearing. No : Carmen's sign - Neurological Neuro grossly intact: Yes Cognition: Normal Orientation: AAOx4 Levon Coma Scale Eye Opening: Spontaneous Levon Coma Scale Verbal: Oriented [place] Coma Scale Motor: Obeys Commands Levon Coma Scale Total: 15 Speech: Normal Motor strength normal: LUE, RUE, LLE, RLE Sensory: Normal - Psychological Associated symptoms: Normal affect, Normal mood - Skin Skin Temperature: Warm Skin Moisture: Dry Skin Color: Normal Course - Re-evaluation Re-evalutation: 11/20/16 15:00 Initially chest x-ray was read by myself due to lack of the read by the radiologist concerned about possible CHF exacerbation as patient has gained weight chest x-ray looks to have vascular congestion and cardiomegaly per my read. Patient was placed on BiPAP due to continued low SPO2 despite 6 L nasal cannula. Patient tolerated this well. Patient also given a diuretic. Discussed with PCP admitted the patient at this point. Later the radiologist read as having a left upper lobe mass Kemeny CT scan patient underwent CT scan showing signs of more likely centralized pneumonia. Antibiotics were ordered urinary tract infection was also identified this will be covered by the patient's Levaquin. - Vital Signs Vital signs: Temp Pulse Resp BP Pulse Ox 97.7 F 110 H 21 H 124/81 95 11/20/16 09:43 11/20/16 09:43 11/20/16 14:57 11/20/16 13:01 11/20/16 14:57 - Laboratory Result Diagrams: 11/20/16 10:40 11/20/16 10:40 Laboratory results interpreted by me: 11/20/16 11/20/16 11/20/16 10:40 10:40 10:40 WBC 13.5 H RBC 4.29 L Hgb 12.6 L RDW 15.8 H Absolute Neutrophils 10.5 H VBG HCO3 18.8 L BUN 28 H Creatinine 2.80 H Est GFR ( Amer) 28 L Est GFR (Non-Af Amer) 23 L Glucose 393 H Direct Bilirubin 0.5 H AST 12 L NT-Pro-B Natriuret Pep Albumin 3.2 L Urine Protein Urine Glucose (UA) Urine Blood Ur Leukocyte Esterase 11/20/16 11/20/16 10:40 12:15 WBC RBC Hgb RDW Absolute Neutrophils VBG HCO3 BUN Creatinine Est GFR ( Amer) Est GFR (Non-Af Amer) Glucose Direct Bilirubin AST NT-Pro-B Natriuret Pep 4910 H Albumin Urine Protein 100 H Urine Glucose (UA) >=500 H Urine Blood LARGE H Ur Leukocyte Esterase MODERATE H Critical Care Note - Critical Care Note Total time excluding time spent on procedures (mins): 35 Comments: Multiple evaluations due to hypoxia Discharge - Discharge Clinical Impression: Mass of left lung CHF exacerbation Qualifiers: Congestive heart failure type: unspecified congestive heart failure type Qualified Code(s): I50.9 - Heart failure, unspecified Uncontrolled diabetes mellitus Qualifiers: Diabetes mellitus type: type 2 Diabetes mellitus complication status: without complication UTI (urinary tract infection) Qualifiers: Urinary tract infection type: acute cystitis Hematuria presence: with hematuria Qualified Code(s): N30.01 - Acute cystitis with hematuria Condition: Good Disposition: ADMITTED INPATIENT Admitting Provider: Luna Unit Admitted: Telemetry
--- NOTE | 2016-11-20 12:20 | RADIOLOGY REPORT (SQ) ---
EXAM DESCRIPTION: CHEST SINGLE VIEW COMPLETED DATE/TIME: 11/20/2016 11:09 am REASON FOR STUDY: sob COMPARISON: 07/31/2016, 07/20/2015, 12/09/2014 Chest films EXAM PARAMETERS: NUMBER OF VIEWS: One view. TECHNIQUE: Single frontal radiographic view of the chest acquired. RADIATION DOSE: NA LIMITATIONS: None. FINDINGS: LUNGS AND PLEURA: Left upper lobe mass 3 to 4 cm in size. The lungs are otherwise clear. No pleural effusion or pneumothorax. MEDIASTINUM AND HILAR STRUCTURES: No masses. Contour normal. HEART AND VASCULAR STRUCTURES: Heart normal in size. Normal vasculature. BONES: No acute findings. HARDWARE: None in the chest. OTHER: No other significant finding. IMPRESSION: Left upper lobe mass. CT recommended for follow up TECHNICAL DOCUMENTATION: JOB ID: [id number]
[2016-11-20 12:46] LABS: AMORPHOUS SEDIMENT,URINE TRACE /HPF; APPEARANCE,URINE SLIGHTLY-CLOUDY; BILIRUBIN,URINE NEGATIVE (NEGATIVE); GLUCOSE, URINE >=500 mg/dL (NEGATIVE); KETONES,URINE NEGATIVE (NEGATIVE); LEUKOCYTE ESTERASE,URINE MODERATE (NEGATIVE); NITRITE,URINE NEGATIVE (NEGATIVE); PROTEIN,URINE 100 mg/dL (NEGATIVE); URINE SPECIFIC GRAVITY 1.007; UROBILINOGEN,URINE NEGATIVE mg/dL (<2.0)
--- NOTE | 2016-11-20 13:56 | RADIOLOGY REPORT (SQ) ---
EXAM DESCRIPTION: CT CHEST WITHOUT COMPLETED DATE/TIME: 11/20/2016 1:32 pm REASON FOR STUDY: eval mass COMPARISON: None. TECHNIQUE: CT scan performed of the chest without intravenous contrast. Images reviewed with lung, soft tissue and bone windows. Reconstructed coronal and sagittal MPR images reviewed. All images st ored on PACS. All CT scanners at this facility use dose modulation, iterative reconstruction, and/or weight based d osing when appropriate to reduce radiation dose to as low as reasonably achievable (ALARA). [facility]: Dose Right [facility]: CareDose [facility]: Dose Right [facility]: Teradose 4D [facility]: [employer] RADIATION DOSE: Up-to-date CT equipment and radiation dose reduction techniques were employed. CTDIv ol: 20.7 mGy. DLP: 835 mGy-cm. mGy. LIMITATIONS: No technical limitations. FINDINGS: LUNGS AND PLEURA: There is an area of multicentric opacification in the left upper lobe. There are some air bronchograms within this. There are scattered areas of ground-glass opacification in the right middle lobe and in the apex of the left lower lobe. There is mild atelectasis versus p leural/parenchymal scarring in the left posterior costophrenic sulcus. There is a minimal amount of pleural fluid on the left. HILAR AND MEDIASTINAL STRUCTURES: No identified masses or abnormal nodes. No obvious aneurysm. HEART AND VASCULAR STRUCTURES: No aneurysm. No pericardial effusion. UPPER ABDOMEN: No significant findings. Limited exam. THYROID AND OTHER SOFT TISSUES: No masses. No adenopathy. BONES: No significant finding. HARDWARE: None in the chest. OTHER: No other significant findings. IMPRESSION: There is considerable opacification in the left upper lobe posteriorly that is multicent alber. There are also scattered ground-glass infiltrates right middle lobe left lower lobe superiorly. The findings favor multicentric pneumonia, but repeat evaluation after treatment is recommended to make sure that there is no left upper lobe mass. TECHNICAL DOCUMENTATION: JOB ID: [id number] Quality ID # [id number]: Final reports with documentation of one or more dose reduction techniques (e.g., Au tomated exposure control, adjustment of the mA and/or kV according to patient size, use of iterative reconstruction technique) 2010 [employer]- All Rights Reserved
[2016-11-20] MEDS ORDERED: LEVOFLOXACIN 500 MG/D5W RTU 500 MG/100 ML RTUPB IV ONE (14:19)
[2016-11-20] MEDS: HUM INSULIN NPH/REG INSULIN HM 100 UNIT/1 ML 3 ML SUBCUT SCH (18:03)
--- NOTE | 2016-11-20 18:04 | PDOC H&P ---
History of Present Illness Admission Date/PCP: 11/20/16 12:30 BAILEY GARCIA MD Patient complains of: dyspnea History of Present Illness: SANTA SANTANA is a 56 year old male with hypertension and diastolic failure since 1990 and diabetic nephrosis since 2010. In July he was admitted for the same and sent home on furosemide 20mg daily with creatinine2.8=gfr24. Now he has had 1d campa pnd and is up 10# since july. Past Medical History Cardiac Medical History: Reports: Congestive Heart Failure - acute & chronic diastolic, DVT, Hyperlipidema, Hypertension Pulmonary Medical History: Reports: Asthma, Bronchitis, Pneumonia Denies: Tuberculosis Endocrine Medical History: Reports: Diabetes Mellitus Type 2, Hypothyroidism Renal/ Medical History: Reports: Chronic Kidney Disease Malignancy Medical History: Reports: None GI Medical History: Reports: Other - gastroparesios Musculoskeltal Medical History: Reports: None Psychiatric Medical History: Reports: Depression, Other - neuropathy Traumatic Medical History: Reports: None Infectious Medical History: Reports: None Past Surgical History Past Surgical History: Reports: Herniorrhaphy, Other - lithtripsy Denies: Pacemaker Social History Information Source: Dr. Barrientos Lives with: Alone Smoking Status: Never Smoker Frequency of Alcohol Use: None Hx Recreational Drug Use: No Drugs: None Hx Prescription Drug Abuse: No - Advance Directive Resuscitation Status: Full Code Family History Family History: Arthritis, CAD, DM, Hyperlipidemia, Hypertension, Malignancy Parental Family History Reviewed: Yes Children Family History Reviewed: Yes Sibling(s) Family History Reviewed.: Yes Medication/Allergy Home Medications: Hum Insulin NPH/Reg Insulin Hm [Novolin 70-30 100 Unit/ml Vial] 100 unit SQ Q12 08/01/16 Losartan Potassium [Cozaar 25 mg Tablet] 25 mg PO DAILY 08/01/16 Furosemide [Lasix 20 mg Tablet] 20 mg PO DAILY #90 tablet 08/04/16 Levothyroxine Sodium [Synthroid 0.05 mg Tablet] 0.05 mg PO DAILY #0 tablet 08/04 Metoclopramide HCl [Reglan 10 mg Tablet] 10 mg PO ACHS #0 tablet 08/04/16 Aspirin [Ecotrin 81 mg EC Tablet] 162 mg PO DAILY 11/20/16 Simvastatin [Zocor 10 mg Tablet] 20 mg PO DAILY 11/20/16 Triamcinolone Acetonide [Aristocort 0.1% Cream] 1 applic TOP BIDP PRN 11/20/16 Allergies/Adverse Reactions: amoxicillin trihydrate [From Amoxil] Allergy (Verified 11/20/16 09:42) Generalized rash mushrooms Allergy (Severe, Uncoded 11/20/16 09:42) Edema Review of Systems Constitutional: ABSENT: fever(s), headache(s), weight loss Cardiovascular: PRESENT: dyspnea on exertion, orthropnea. ABSENT: chest pain Respiratory: ABSENT: cough Gastrointestinal: PRESENT: constipation, vomiting. ABSENT: abdominal pain, diarrhea, hematochezia, melena Genitourinary: ABSENT: dysuria, hematuria Physical Exam Vital Signs: Temp Pulse Resp BP Pulse Ox 97.7 F 110 H 22 H 124/81 92 11/20/16 09:43 11/20/16 09:43 11/20/16 13:01 11/20/16 13:01 11/20/16 13:01 General appearance: PRESENT: no acute distress, morbidly obese Eye exam: ABSENT: conjunctival injection Mouth exam: PRESENT: moist, neck supple, tongue midline Neck exam: ABSENT: lymphadenopathy, tenderness, tracheal deviation Respiratory exam: PRESENT: clear to auscultation jose Cardiovascular exam: ABSENT: diastolic murmur, irregular rhythm, systolic murmur GI/Abdominal exam: ABSENT: mass, organolmegaly, tenderness Extremities exam: PRESENT: pedal edema - trace Neurological exam: PRESENT: oriented to situation Psychiatric exam: PRESENT: appropriate affect Results Impressions: Chest X-Ray 11/20/16 09:51 IMPRESSION: Left upper lobe mass. CT recommended for follow up Chest CT 11/20/16 12:33 IMPRESSION: There is considerable opacification in the left upper lobe posteriorly that is multicentric. There are also scattered ground-glass infiltrates right middle lobe left lower lobe superiorly. The findings favor multicentric pneumonia, but repeat evaluation after treatment is recommended to make sure that there is no left upper lobe mass. Assessment & Plan - Diagnosis (1) Diastolic dysfunction with acute on chronic heart failure Is this a current diagnosis for this admission?: Yes Plan: furosemide 40iv qd (2) CKD stage 4 due to type 2 diabetes mellitus Is this a current diagnosis for this admission?: Yes Plan: follow cr (3) Mass of left lung Is this a current diagnosis for this admission?: Yes Plan: 1m xr (4) Body mass index (BMI) of 60.0-69.9 in adult Is this a current diagnosis for this admission?: Yes Plan: carb pattern 2 (5) Type 2 diabetes mellitus with diabetic polyneuropathy Qualifiers: Diabetes mellitus penitentiary insulin use: with keno terminal operator use Qualified Code( s): E11.42 - Type 2 diabetes mellitus with diabetic polyneuropathy; Z79.4 - terminal supervisor (current) use of insulin Is this a current diagnosis for this admission?: Yes Plan: continue insulin 200qd - Inpatient Certification Medical Necessity: Failure to Improve With Outpatient Therapy, Significant Comorbidiites Make Outpatient Treatment Too Risky, Need Close Monitoring Due to Risk of Patient Decompensation, Need For Continuous Telemetry Monitoring, Risk of Diagnosis Which Will Require Inpatient Eval/Care/Monitoring
[2016-11-20] MEDS ORDERED: DEXTROSE 40% GEL 15 GM TUBE PO PRN ×2 (18:16)
[2016-11-20] MEDS ORDERED: DEXTROSE 50%-WATER 25 GM/50 ML DISP.SYRIN IV PRN ×2 (18:16)
[2016-11-20] MEDS ORDERED: GLUCAGON,HUMAN RECOMB 1 MG INJ IM PRN (18:16)
[2016-11-20] MEDS ORDERED: ENOXAPARIN SODIUM INJ 30 MG/0.3 ML DISP.SYRIN SUBCUT ONE (19:15)
[2016-11-20] MEDS: METOCLOPRAMIDE HCL 10 MG TABLET PO SCH (21:48)
[2016-11-20] MEDS: FAMOTIDINE 20 MG TABLET PO SCH (21:49)
[2016-11-20] MEDS ORDERED: HUM INSULIN NPH/REG INSULIN HM 100 UNIT/1 ML 3 ML SUBCUT SCH (22:00)
[2016-11-20] MEDS ORDERED: FUROSEMIDE INJ/PF 20 MG/2 ML SDV IV SCH (22:00)
[2016-11-21 05:21] LABS: ANION GAP 13 (5-19); BLOOD UREA NITROGEN 32 mg/dL (7-20); CALCIUM 9.7 mg/dL (8.4-10.2); CARBON DIOXIDE 24 mmol/L (22-30); CHLORIDE 105 mmol/L (98-107); CHOLESTEROL 181.73 mg/dL (0-200); CREATININE RESULT 2.98 mg/dL (0.52-1.25); Direct HDL 34 mg/dL (>40); GLUCOSE 145 mg/dL (75-110); POTASSIUM 3.7 mmol/L (3.6-5.0); SODIUM 141.6 mmol/L (137-145); TRIGLYCERIDES 149 mg/dL (<150)
[2016-11-21 05:31] LABS: DIRECT LDL 127 mg/dL (<100)
[2016-11-21] MEDS: METOCLOPRAMIDE HCL 10 MG TABLET PO SCH ×4 (07:56→21:59)
[2016-11-21] MEDS: HUM INSULIN NPH/REG INSULIN HM 100 UNIT/1 ML 3 ML SUBCUT SCH ×2 (07:56→17:04)
--- NOTE | 2016-11-21 07:57 | PDOC PROGRESS REPORT ---
Subjective Progress Note for:: 11/21/16 Subjective:: less dyspnea. Dry cough. Physical Exam Vital Signs: Temp Pulse Resp BP Pulse Ox 97.8 F 80 25 H 132/88 H 97 11/21/16 04:16 11/21/16 07:00 11/21/16 04:16 11/21/16 04:16 11/21/16 04:16 Intake & Output 11/19/16 11/20/16 11/21/16 07:59 07:59 07:59 Intake Total 1605 Output Total 1730 Balance -125 Weight 354 lb 11.58 oz General appearance: PRESENT: no acute distress Respiratory exam: PRESENT: clear to auscultation jose Cardiovascular exam: ABSENT: diastolic murmur, irregular rhythm, systolic murmur GI/Abdominal exam: ABSENT: mass, organolmegaly, tenderness Extremities exam: PRESENT: pedal edema - trace Neurological exam: PRESENT: oriented to situation Psychiatric exam: PRESENT: appropriate affect Results Laboratory Results: 11/21/16 04:11 11/21/16 04:11 Sodium 141.6 Potassium 3.7 Chloride 105 Carbon Dioxide 24 Anion Gap 13 BUN 32 H Creatinine 2.98 H Est GFR ( Amer) 26 L Est GFR (Non-Af Amer) 22 L Glucose 145 H Calcium 9.7 Triglycerides 149 Cholesterol 181.73 LDL Cholesterol Direct 127 H VLDL Cholesterol 30.0 HDL Cholesterol 34 L 11/20/16 13:53 Troponin I 0.053 Impressions: Chest X-Ray 11/20/16 09:51 IMPRESSION: Left upper lobe mass. CT recommended for follow up Chest CT 11/20/16 12:33 IMPRESSION: There is considerable opacification in the left upper lobe posteriorly that is multicentric. There are also scattered ground-glass infiltrates right middle lobe left lower lobe superiorly. The findings favor multicentric pneumonia, but repeat evaluation after treatment is recommended to make sure that there is no left upper lobe mass. Assessment & Plan - Diagnosis (1) Diastolic dysfunction with acute on chronic heart failure Is this a current diagnosis for this admission?: Yes Plan: cr up 0.2 to 3.0. Decrease furosemide to 20mg iv qd. (2) CKD stage 4 due to type 2 diabetes mellitus Is this a current diagnosis for this admission?: Yes (3) Mass of left lung Is this a current diagnosis for this admission?: Yes Plan: ct says multicentric ?pneumonia. Also bilateral ground glass of chf. Continue levaquin. (4) Body mass index (BMI) of 60.0-69.9 in adult Is this a current diagnosis for this admission?: Yes (5) Type 2 diabetes mellitus with diabetic polyneuropathy Qualifiers: Diabetes mellitus assisted insulin use: with roasterman use Qualified Code( s): E11.42 - Type 2 diabetes mellitus with diabetic polyneuropathy; Z79.4 - [facility]-way (current) use of insulin Is this a current diagnosis for this admission?: Yes (6) Bronchopneumonia Is this a current diagnosis for this admission?: Yes Plan: continue levaquin - Inpatient Certification Medical Necessity: Significant Comorbidiites Make Outpatient Treatment Too Risky , Need Close Monitoring Due to Risk of Patient Decompensation, Risk of Complication if Not Cared For in Hospital, Risk of Diagnosis Which Will Require Inpatient Eval/Care/Monitoring
[2016-11-21] MEDS: SIMVASTATIN 10 MG TABLET PO SCH (09:58)
[2016-11-21] MEDS: METOPROLOL SUCCINATE 25 MG TAB.SR.24H PO SCH (09:58)
[2016-11-21] MEDS: LEVOTHYROXINE SODIUM 0.05 MG TABLET PO SCH (09:58)
[2016-11-21] MEDS: ASPIRIN 81 MG TABLET, ENT COATED PO SCH (09:59)
[2016-11-21] MEDS: ENOXAPARIN SODIUM INJ 30 MG/0.3 ML DISP.SYRIN SUBCUT SCH (09:59)
[2016-11-21] MEDS: FAMOTIDINE 20 MG TABLET PO SCH ×2 (09:59→21:59)
[2016-11-21] MEDS ORDERED: LOSARTAN POTASSIUM 25 MG TABLET PO SCH (10:00)
[2016-11-21] MEDS ORDERED: FUROSEMIDE INJ/PF 20 MG/2 ML SDV IV SCH (10:00)
--- NOTE | 2016-11-21 17:41 | PDOC CONSULTATION ---
Consultation Consult Date: 11/21/16 Consult reason:: CKD 4 and CHF History of Present Illness Admission Date/PCP: 11/20/16 12:30 BAILEY GARCIA MD History of Present Illness: SANTA SANTANA is a 56 year old male with hypertension,DM and diastolic failure, Non compliance , Morbid Obesity was admitted with progressive dyspnea on exertion over the last few days culminating with progressive orthopnea. No c/ o chest pains, cough , fever or chills. Has noticed worsening pedal edema. High na intake . Blood sugars are surprisingly well controlled and says fasting nos are around 120 -1 40. eats out a lot. Was admitted in July with renal Colic and UTI and discharged creatinine of 2.8. Currently feeling lots better after being administered IV Lasix and also put on Levoflox. His last ECHO done in July this year was reviewed and it showed normal LVEF , mild diastolic failure, inability to read the right heart structure and functions secondary to technical difficulties arising from his morbid obesity. Past Medical History Cardiac Medical History: Reports: DVT, Hyperlipidemia, Hypertension-primary Pulmonary Medical History: Reports: Asthma, Bronchitis, Pneumonia Denies: Tuberculosis Endocrine Medical History: Reports: Diabetes Mellitus Type 2, Hypothyroidism Complications of Diabetes: Reports: None Renal/ Medical History: Reports: Chronic Kidney Disease Stage III, Nephrolithiasis Malignancy Medical History: Reports: None GI Medical History: Reports: Other - gastroparesios Musculoskeltal Medical History: Reports: None Psychiatric Medical History: Reports: Depression, Other - neuropathy Traumatic Medical History: Reports: None Infectious Medical History: Reports: None Past Surgical History Past Surgical History: Reports: Herniorrhaphy, Other - lithtripsy Denies: Pacemaker Social History Lives with: Alone Smoking Status: Never Smoker Frequency of Alcohol Use: None Hx Recreational Drug Use: No Drugs: None Hx Prescription Drug Abuse: No - Advance Directive Resuscitation Status: Full Code Family History Parental Family History Reviewed: Yes - negative for esrd Children Family History Reviewed: No Sibling(s) Family History Reviewed.: No Medication/Allergy Home Medications: Hum Insulin NPH/Reg Insulin Hm [Novolin 70-30 100 Unit/ml Vial] 100 unit SQ Q12 08/01/16 Losartan Potassium [Cozaar 25 mg Tablet] 25 mg PO DAILY 08/01/16 Furosemide [Lasix 20 mg Tablet] 20 mg PO DAILY #90 tablet 08/04/16 Levothyroxine Sodium [Synthroid 0.05 mg Tablet] 0.05 mg PO DAILY #0 tablet 08/04 Metoclopramide HCl [Reglan 10 mg Tablet] 10 mg PO ACHS #0 tablet 08/04/16 Aspirin [Ecotrin 81 mg EC Tablet] 162 mg PO DAILY 11/20/16 Simvastatin [Zocor 10 mg Tablet] 20 mg PO DAILY 11/20/16 Triamcinolone Acetonide [Aristocort 0.1% Cream] 1 applic TOP BIDP PRN 11/20/16 Allergies/Adverse Reactions: amoxicillin trihydrate [From Amoxil] Allergy (Verified 11/20/16 09:42) Generalized rash mushrooms Allergy (Severe, Uncoded 11/20/16 09:42) Edema Review of Systems Constitutional: ABSENT: anorexia, chills, fatigue, fever(s), night sweats, weakness Nose, Mouth, and Throat: ABSENT: headache(s), sore throat Cardiovascular: PRESENT: dyspnea on exertion, edema, orthropnea. ABSENT: chest pain, palpitations Gastrointestinal: ABSENT: abdominal pain, coffee ground emesis, constipation, diarrhea, dysphagia, heartburn, hematemesis, hematochezia, melena, nausea Genitourinary: ABSENT: dysuria, hematuria Integumentary: ABSENT: lesions, pruritus Neurological: ABSENT: abnormal movements, abnormal speech, confusion, convulsions Hematologic/Lymphatic: ABSENT: easy bruising, lymphadenopathy Physical Exam Vital Signs: Temp Pulse Resp BP Pulse Ox 97.6 F 77 16 115/71 98 11/21/16 11:05 11/21/16 14:00 11/21/16 11:05 11/21/16 11:05 11/21/16 11:05 Intake & Output 11/20/16 11/21/16 11/22/16 06:59 06:59 06:59 Intake Total 1605 475 Output Total 1730 750 Balance -125 -275 Weight 160.9 kg General appearance: PRESENT: no acute distress Eye exam: PRESENT: conjunctiva pink, EOMI, PERRLA. ABSENT: nystagmus Ear exam: PRESENT: normal external ear exam Mouth exam: PRESENT: moist Neck exam: ABSENT: lymphadenopathy, meningismus, tenderness, thyromegaly, tracheal deviation Respiratory exam: PRESENT: clear to auscultation jose, crackles. ABSENT: rhonchi Cardiovascular exam: PRESENT: +S1, +S2 GI/Abdominal exam: PRESENT: normal bowel sounds, soft. ABSENT: organomegaly, tenderness Extremities exam: PRESENT: pedal edema Neurological exam: PRESENT: alert, awake, oriented to person, oriented to place , oriented to time Skin exam: ABSENT: abrasion, cyanosis, erythema, mottled Results Laboratory Results: 11/21/16 04:11 11/21/16 04:11 Sodium 141.6 Potassium 3.7 Chloride 105 Carbon Dioxide 24 Anion Gap 13 BUN 32 H Creatinine 2.98 H Est GFR ( Amer) 26 L Est GFR (Non-Af Amer) 22 L Glucose 145 H Calcium 9.7 Triglycerides 149 Cholesterol 181.73 LDL Cholesterol Direct 127 H VLDL Cholesterol 30.0 HDL Cholesterol 34 L 11/20/16 13:53 Troponin I 0.053 Impressions: Chest X-Ray 11/20/16 09:51 IMPRESSION: Left upper lobe mass. CT recommended for follow up Chest CT 11/20/16 12:33 IMPRESSION: There is considerable opacification in the left upper lobe posteriorly that is multicentric. There are also scattered ground-glass infiltrates right middle lobe left lower lobe superiorly. The findings favor multicentric pneumonia, but repeat evaluation after treatment is recommended to make sure that there is no left upper lobe mass. Assessment & Plan - Diagnosis (1) Hypertension Plan: Currently well controlled (2) CHF exacerbation Qualifiers: Congestive heart failure type: unspecified congestive heart failure type Qualified Code(s): I50.9 - Heart failure, unspecified Plan: Improving diastolic heart failure. Unsure of right heart and possibility of Cor Pulmonale. Continue on current meds. (3) CKD stage 4 due to type 2 diabetes mellitus Is this a current diagnosis for this admission?: Yes Plan: Relatively stable. Will continue to follow.No changes currently. (4) Obesity Qualifiers: Obesity type: unspecified obesity type (5) Type 2 diabetes mellitus with diabetic polyneuropathy Qualifiers: Diabetes mellitus superintendent terminal insulin use: with superintendent terminal use Qualified Code( s): E11.42 - Type 2 diabetes mellitus with diabetic polyneuropathy; Z79.4 - [facility] (current) use of insulin Is this a current diagnosis for this admission?: Yes Plan: Apparently well controlled.
[2016-11-21 20:20] LABS: APPEARANCE,URINE SLIGHTLY-CLOUDY; BILIRUBIN,URINE NEGATIVE (NEGATIVE); GLUCOSE, URINE NEGATIVE (NEGATIVE); KETONES,URINE NEGATIVE (NEGATIVE); LEUKOCYTE ESTERASE,URINE MODERATE (NEGATIVE); NITRITE,URINE NEGATIVE (NEGATIVE); PROTEIN,URINE 100 mg/dL (NEGATIVE); UROBILINOGEN,URINE NEGATIVE mg/dL (<2.0)
[2016-11-22 07:16] LABS: ANION GAP 12 (5-19); BLOOD UREA NITROGEN 38 mg/dL (7-20); CALCIUM 9.3 mg/dL (8.4-10.2); CARBON DIOXIDE 23 mmol/L (22-30); CHLORIDE 106 mmol/L (98-107); CREATININE RESULT 3.22 mg/dL (0.52-1.25); GLUCOSE 102 mg/dL (75-110); POTASSIUM 3.8 mmol/L (3.6-5.0); SODIUM 140.7 mmol/L (137-145)
--- NOTE | 2016-11-22 08:15 | PDOC PROGRESS REPORT ---
Subjective Progress Note for:: 11/22/16 Subjective:: campa getting up Physical Exam Vital Signs: Temp Pulse Resp BP Pulse Ox 97.7 F 81 16 130/78 H 96 11/21/16 23:38 11/22/16 07:00 11/22/16 04:00 11/21/16 23:38 11/22/16 00:18 Intake & Output 11/21/16 11/22/16 11/23/16 07:59 07:59 07:59 Intake Total 1605 1220 Output Total 1730 1350 Balance -125 -130 Weight 354 lb 11.58 oz 354 lb 11.58 oz General appearance: PRESENT: no acute distress Respiratory exam: PRESENT: clear to auscultation jose Cardiovascular exam: ABSENT: diastolic murmur, irregular rhythm, systolic murmur GI/Abdominal exam: ABSENT: mass, organolmegaly, tenderness Extremities exam: ABSENT: pedal edema Neurological exam: PRESENT: oriented to situation Psychiatric exam: PRESENT: appropriate affect Results Laboratory Results: 11/22/16 06:31 11/21/16 11/22/16 19:20 06:31 Sodium 140.7 Potassium 3.8 Chloride 106 Carbon Dioxide 23 Anion Gap 12 BUN 38 H Creatinine 3.22 H Est GFR ( Amer) 24 L Est GFR (Non-Af Amer) 20 L Glucose 102 Calcium 9.3 Urine Color YELLOW Urine Appearance SLIGHTLY-CLOUDY Urine pH 5.0 Ur Specific [place] 1.010 Urine Protein 100 H Urine Glucose (UA) NEGATIVE Urine Ketones NEGATIVE Urine Blood MODERATE H Urine Nitrite NEGATIVE Ur Leukocyte Esterase MODERATE H Urine WBC (Auto) 93 Urine RBC (Auto) 5 11/20/16 13:53 Troponin I 0.053 Impressions: Chest X-Ray 11/20/16 09:51 IMPRESSION: Left upper lobe mass. CT recommended for follow up Chest CT 11/20/16 12:33 IMPRESSION: There is considerable opacification in the left upper lobe posteriorly that is multicentric. There are also scattered ground-glass infiltrates right middle lobe left lower lobe superiorly. The findings favor multicentric pneumonia, but repeat evaluation after treatment is recommended to make sure that there is no left upper lobe mass. Assessment & Plan - Diagnosis (1) Bronchopneumonia Is this a current diagnosis for this admission?: Yes Plan: continue levaquin (2) Diastolic dysfunction with acute on chronic heart failure Is this a current diagnosis for this admission?: Yes Plan: cr 2.8 3 3.2. Hold furosemide. 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 insulin use: with retirement use Qualified Code( s): E11.42 - Type 2 diabetes mellitus with diabetic polyneuropathy; Z79.4 - shelter (current) use of insulin Is this a current diagnosis for this admission?: Yes Plan: bs44 last pm after skipping dinner (6) Mass of left lung Is this a current diagnosis for this admission?: Yes - Inpatient Certification Medical Necessity: Significant Comorbidiites Make Outpatient Treatment Too Risky , Need Close Monitoring Due to Risk of Patient Decompensation, Need for IV Antibiotics, Risk of Complication if Not Cared For in Hospital, Risk of Diagnosis Which Will Require Inpatient Eval/Care/Monitoring
[2016-11-22] MEDS: METOCLOPRAMIDE HCL 10 MG TABLET PO SCH ×4 (08:56→22:33)
[2016-11-22] MEDS ORDERED: LEVOFLOXACIN 750 MG TABLET PO SCH (10:00)
[2016-11-22] MEDS: ENOXAPARIN SODIUM INJ 30 MG/0.3 ML DISP.SYRIN SUBCUT SCH (10:35)
[2016-11-22] MEDS: SIMVASTATIN 10 MG TABLET PO SCH (10:36)
[2016-11-22] MEDS: LEVOTHYROXINE SODIUM 0.05 MG TABLET PO SCH (10:36)
[2016-11-22] MEDS: FAMOTIDINE 20 MG TABLET PO SCH (10:36)
[2016-11-22] MEDS: METOPROLOL SUCCINATE 25 MG TAB.SR.24H PO SCH (10:37)
[2016-11-22] MEDS: ASPIRIN 81 MG TABLET, ENT COATED PO SCH (10:37)
--- NOTE | 2016-11-22 12:15 | Physician Advisory Note ---
Physician Advisor ProgressNote .: Pursuant to the plan for [facility], I have reviewed the medical record for this patient. Physician Advisor Statement: Really nice documentation of Ac on Chr diastolic CHF, CKD-4 due to DM! Please consider documentin. "Acute Hypoxemic Respiratory failure due to pneumonia" (pt with sat 87% RA initially, with RR28, "noted difficulty breathing", "sweaty", "struggling to catch breath", "unable to lie flat", required Bipap) 2. "Pneumonia, suspect gram-negative type" (or Gram-positive, or ...) 3. "Acute Kidney Injury, likely due to " (ATN? or ...) - has developed since arrival. Thanks! CK
--- NOTE | 2016-11-22 12:46 | PDOC PROGRESS REPORT ---
Subjective Progress Note for:: 11/22/16 Subjective:: Patient is was happy and cheerful sitting on the side of the bed. He has no complaints of SOB while sitting there. He does have SOB on exertion. He produced 1.3L of urine yesterday. Physical Exam Vital Signs: Temp Pulse Resp BP Pulse Ox 97.6 F 76 18 123/82 96 11/22/16 11:27 11/22/16 11:27 11/22/16 11:27 11/22/16 11:27 11/22/16 11:27 Intake & Output 11/21/16 11/22/16 11/23/16 06:59 06:59 06:59 Intake Total 1605 1220 Output Total 1730 1350 Balance -125 -130 Weight 160.9 kg 160.9 kg General appearance: PRESENT: no acute distress, well-developed, well-nourished Head exam: PRESENT: atraumatic, normocephalic Mouth exam: PRESENT: dry mucosa, tongue midline Neck exam: PRESENT: full ROM. ABSENT: JVD, tracheal deviation Respiratory exam: PRESENT: clear to auscultation jose. ABSENT: accessory muscle use, chest wall tenderness Cardiovascular exam: PRESENT: RRR, +S1, +S2 GI/Abdominal exam: PRESENT: normal bowel sounds, soft. ABSENT: organomegaly, tenderness Extremities exam: PRESENT: full ROM. ABSENT: pedal edema Musculoskeletal exam: PRESENT: normal inspection. ABSENT: deformity Neurological exam: PRESENT: alert, awake, oriented to person, oriented to place , oriented to time, oriented to situation Psychiatric exam: PRESENT: appropriate affect, normal mood Skin exam: PRESENT: dry, intact, warm. ABSENT: cyanosis Results Laboratory Results: 11/22/16 06:31 11/21/16 11/22/16 19:20 06:31 Sodium 140.7 Potassium 3.8 Chloride 106 Carbon Dioxide 23 Anion Gap 12 BUN 38 H Creatinine 3.22 H Est GFR ( Amer) 24 L Est GFR (Non-Af Amer) 20 L Glucose 102 Calcium 9.3 Urine Color YELLOW Urine Appearance SLIGHTLY-CLOUDY Urine pH 5.0 Ur Specific [place] 1.010 Urine Protein 100 H Urine Glucose (UA) NEGATIVE Urine Ketones NEGATIVE Urine Blood MODERATE H Urine Nitrite NEGATIVE Ur Leukocyte Esterase MODERATE H Urine WBC (Auto) 93 Urine RBC (Auto) 5 11/20/16 13:53 Troponin I 0.053 Impressions: Chest X-Ray 11/20/16 09:51 IMPRESSION: Left upper lobe mass. CT recommended for follow up Chest CT 11/20/16 12:33 IMPRESSION: There is considerable opacification in the left upper lobe posteriorly that is multicentric. There are also scattered ground-glass infiltrates right middle lobe left lower lobe superiorly. The findings favor multicentric pneumonia, but repeat evaluation after treatment is recommended to make sure that there is no left upper lobe mass. Assessment & Plan - Diagnosis (1) CHF exacerbation Qualifiers: Congestive heart failure type: unspecified congestive heart failure type Qualified Code(s): I50.9 - Heart failure, unspecified Plan: looks to be resolving (2) CKD stage 4 due to type 2 diabetes mellitus Is this a current diagnosis for this admission?: Yes Plan: worsening, would d/c lasix and let him orally rehydrate (3) Hypertension Plan: well controlled (4) Obesity Qualifiers: Obesity type: unspecified obesity type (5) Type 2 diabetes mellitus with diabetic polyneuropathy Qualifiers: Diabetes mellitus nursing home insulin use: with high school librarian use Qualified Code( s): E11.42 - Type 2 diabetes mellitus with diabetic polyneuropathy; Z79.4 - [facility] (current) use of insulin Is this a current diagnosis for this admission?: Yes Plan: somewhat controlled
[2016-11-22] MEDS: HUM INSULIN NPH/REG INSULIN HM 100 UNIT/1 ML 3 ML SUBCUT SCH (17:29)
[2016-11-23 05:57] LABS: ANION GAP 13 (5-19); BLOOD UREA NITROGEN 47 mg/dL (7-20); CALCIUM 9.4 mg/dL (8.4-10.2); CARBON DIOXIDE 23 mmol/L (22-30); CHLORIDE 105 mmol/L (98-107); CREATININE RESULT 3.27 mg/dL (0.52-1.25); GLUCOSE 95 mg/dL (75-110); SODIUM 141.4 mmol/L (137-145)
[2016-11-23] MEDS: HUM INSULIN NPH/REG INSULIN HM 100 UNIT/1 ML 3 ML SUBCUT SCH ×2 (06:02→17:45)
--- NOTE | 2016-11-23 07:58 | PDOC PROGRESS REPORT ---
Subjective Progress Note for:: 11/23/16 Subjective:: arms itch Physical Exam Vital Signs: Temp Pulse Resp BP Pulse Ox 97.6 F 83 17 110/54 L 98 11/23/16 03:14 11/23/16 07:00 11/23/16 03:14 11/23/16 03:14 11/23/16 03:14 Intake & Output 11/21/16 11/22/16 11/23/16 07:59 07:59 07:59 Intake Total 1605 1220 710 Output Total 1730 1350 250 Balance -125 -130 460 Weight 354 lb 11.58 oz 354 lb 11.58 oz 235 lb 10.786 oz General appearance: PRESENT: no acute distress Respiratory exam: PRESENT: clear to auscultation jose Cardiovascular exam: ABSENT: diastolic murmur, irregular rhythm, systolic murmur GI/Abdominal exam: ABSENT: mass, organolmegaly, tenderness Extremities exam: ABSENT: pedal edema Neurological exam: PRESENT: oriented to situation Psychiatric exam: PRESENT: appropriate affect Skin exam: PRESENT: rash - pink macules arms scalp Results Laboratory Results: 11/23/16 04:57 11/23/16 04:57 Sodium 141.4 Potassium 4.0 Chloride 105 Carbon Dioxide 23 Anion Gap 13 BUN 47 H Creatinine 3.27 H Est GFR ( Amer) 24 L Est GFR (Non-Af Amer) 20 L Glucose 95 Calcium 9.4 Impressions: Chest X-Ray 11/20/16 09:51 IMPRESSION: Left upper lobe mass. CT recommended for follow up Chest CT 11/20/16 12:33 IMPRESSION: There is considerable opacification in the left upper lobe posteriorly that is multicentric. There are also scattered ground-glass infiltrates right middle lobe left lower lobe superiorly. The findings favor multicentric pneumonia, but repeat evaluation after treatment is recommended to make sure that there is no left upper lobe mass. Assessment & Plan - Diagnosis (1) Bronchopneumonia Is this a current diagnosis for this admission?: Yes Plan: new rash could be levaquin. Had levaquin last year. Observe. (2) Diastolic dysfunction with acute on chronic heart failure Is this a current diagnosis for this admission?: Yes Plan: cant diureses anymore without dialysis. Told so (3) CKD stage 4 due to type 2 diabetes mellitus Is this a current diagnosis for this admission?: Yes Plan: cr climbing off furosemide (4) Body mass index (BMI) of 60.0-69.9 in adult Is this a current diagnosis for this admission?: Yes (5) Type 2 diabetes mellitus with diabetic polyneuropathy Qualifiers: Diabetes mellitus jail insulin use: with terminal press operator use Qualified Code( s): E11.42 - Type 2 diabetes mellitus with diabetic polyneuropathy; Z79.4 - termite control technician (current) use of insulin Is this a current diagnosis for this admission?: Yes Plan: fbs better on less insulin (6) Mass of left lung Is this a current diagnosis for this admission?: Yes
[2016-11-23] MEDS: ENOXAPARIN SODIUM INJ 30 MG/0.3 ML DISP.SYRIN SUBCUT SCH (09:08)
[2016-11-23] MEDS: METOCLOPRAMIDE HCL 10 MG TABLET PO SCH ×4 (09:10→21:47)
[2016-11-23] MEDS: FAMOTIDINE 20 MG TABLET PO SCH (09:10)
[2016-11-23] MEDS: METOPROLOL SUCCINATE 25 MG TAB.SR.24H PO SCH (09:10)
[2016-11-23] MEDS: ASPIRIN 81 MG TABLET, ENT COATED PO SCH (09:11)
[2016-11-23] MEDS: LEVOTHYROXINE SODIUM 0.05 MG TABLET PO SCH (09:11)
[2016-11-23] MEDS: SIMVASTATIN 10 MG TABLET PO SCH (09:11)
--- NOTE | 2016-11-23 13:29 | PDOC PROGRESS REPORT ---
Subjective Progress Note for:: 11/23/16 Subjective:: Patient continues to have dyspnea on exertion which is baseline according to him. Denies chest pain or orthopnea. He continues to need oxygen. He produced 1.3 L of urine yesterday. Physical Exam Vital Signs: Temp Pulse Resp BP Pulse Ox 98.5 F 85 22 H 131/83 H 93 11/23/16 07:28 11/23/16 07:31 11/23/16 07:28 11/23/16 07:31 11/23/16 07:28 Intake & Output 11/22/16 11/23/16 11/24/16 06:59 06:59 06:59 Intake Total 1220 710 Output Total 1350 250 Balance -130 460 Weight 160.9 kg 106.9 kg General appearance: PRESENT: no acute distress, morbidly obese, well-developed, well-nourished Head exam: PRESENT: atraumatic, normocephalic Mouth exam: PRESENT: moist, neck supple Neck exam: PRESENT: full ROM. ABSENT: JVD Respiratory exam: PRESENT: clear to auscultation jose. ABSENT: accessory muscle use, chest wall tenderness, crackles, rhonchi Cardiovascular exam: PRESENT: RRR, +S1, +S2 GI/Abdominal exam: PRESENT: normal bowel sounds, soft. ABSENT: organomegaly, tenderness Extremities exam: PRESENT: pedal edema - -trace+, tenderness - -left lower fowler Musculoskeletal exam: PRESENT: normal inspection, tenderness. ABSENT: deformity Neurological exam: PRESENT: alert, awake, oriented to person, oriented to place , oriented to time, oriented to situation Psychiatric exam: PRESENT: appropriate affect, normal mood Skin exam: PRESENT: dry, intact, warm. ABSENT: cyanosis Results Laboratory Results: 11/23/16 04:57 11/23/16 04:57 Sodium 141.4 Potassium 4.0 Chloride 105 Carbon Dioxide 23 Anion Gap 13 BUN 47 H Creatinine 3.27 H Est GFR ( Amer) 24 L Est GFR (Non-Af Amer) 20 L Glucose 95 Calcium 9.4 11/20/16 13:53 Troponin I 0.053 Impressions: Chest X-Ray 11/20/16 09:51 IMPRESSION: Left upper lobe mass. CT recommended for follow up Chest CT 11/20/16 12:33 IMPRESSION: There is considerable opacification in the left upper lobe posteriorly that is multicentric. There are also scattered ground-glass infiltrates right middle lobe left lower lobe superiorly. The findings favor multicentric pneumonia, but repeat evaluation after treatment is recommended to make sure that there is no left upper lobe mass. Assessment & Plan - Diagnosis (1) CHF exacerbation Qualifiers: Congestive heart failure type: unspecified congestive heart failure type Qualified Code(s): I50.9 - Heart failure, unspecified Plan: looks to be resolving, almost to baseline SOB (2) CKD stage 4 due to type 2 diabetes mellitus Is this a current diagnosis for this admission?: Yes Plan: stablized, would recommend letting him still orally rehydrate (3) Hypertension Plan: well controlled (4) Obesity Qualifiers: Obesity type: unspecified obesity type (5) Type 2 diabetes mellitus with diabetic polyneuropathy Qualifiers: Diabetes mellitus truck terminal 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
[2016-11-24 06:21] LABS: ANION GAP 12 (5-19); BLOOD UREA NITROGEN 49 mg/dL (7-20); CALCIUM 9.2 mg/dL (8.4-10.2); CARBON DIOXIDE 24 mmol/L (22-30); CHLORIDE 105 mmol/L (98-107); GLUCOSE 77 mg/dL (75-110); POTASSIUM 4.1 mmol/L (3.6-5.0); SODIUM 141.1 mmol/L (137-145)
[2016-11-24] MEDS ORDERED: TUBERCULIN,PURIF.PROT.DERIV. 5 TU/0.1 ML TEST 1 ML VIAL ID ONE ×2 (06:42→09:00)
--- NOTE | 2016-11-24 06:50 | PDOC PROGRESS REPORT ---
Subjective Progress Note for:: 11/24/16 Subjective:: dry cough Physical Exam Vital Signs: Temp Pulse Resp BP Pulse Ox 98.1 F 78 18 112/56 L 93 11/24/16 04:40 11/24/16 04:40 11/24/16 04:40 11/24/16 04:40 11/24/16 04:40 Intake & Output 11/22/16 11/23/16 11/24/16 07:59 07:59 07:59 Intake Total 1220 710 715 Output Total 8734 152 3446 Balance -130 460 -975 Weight 354 lb 11.58 oz 235 lb 10.786 oz 235 lb 10.786 oz General appearance: PRESENT: no acute distress Respiratory exam: PRESENT: clear to auscultation jose Cardiovascular exam: ABSENT: diastolic murmur, irregular rhythm, systolic murmur GI/Abdominal exam: ABSENT: mass, organolmegaly, tenderness Extremities exam: PRESENT: pedal edema - trace Neurological exam: PRESENT: oriented to situation Psychiatric exam: PRESENT: appropriate affect Skin exam: PRESENT: rash - red macules papules now worse on arms,chest,scalp Results Laboratory Results: 11/24/16 05:19 11/24/16 05:19 Sodium 141.1 Potassium 4.1 Chloride 105 Carbon Dioxide 24 Anion Gap 12 BUN 49 H Creatinine 3.50 H Est GFR ( Amer) 22 L Est GFR (Non-Af Amer) 18 L Glucose 77 Calcium 9.2 Impressions: Chest X-Ray 11/20/16 09:51 IMPRESSION: Left upper lobe mass. CT recommended for follow up Chest CT 11/20/16 12:33 IMPRESSION: There is considerable opacification in the left upper lobe posteriorly that is multicentric. There are also scattered ground-glass infiltrates right middle lobe left lower lobe superiorly. The findings favor multicentric pneumonia, but repeat evaluation after treatment is recommended to make sure that there is no left upper lobe mass. Assessment & Plan - Diagnosis (1) Bronchopneumonia Is this a current diagnosis for this admission?: Yes Plan: rash probably from levaquin. Added to allergy list. Switch to azithromycin. PPD quantiferon (2) Diastolic dysfunction with acute on chronic heart failure Is this a current diagnosis for this admission?: Yes (3) CKD stage 4 due to type 2 diabetes mellitus Is this a current diagnosis for this admission?: Yes Plan: cr3.5 off furosemide (4) Body mass index (BMI) of 60.0-69.9 in adult Is this a current diagnosis for this admission?: Yes (5) Type 2 diabetes mellitus with diabetic polyneuropathy Qualifiers: Diabetes mellitus supervisor intermediates insulin use: with fci use Qualified Code( s): E11.42 - Type 2 diabetes mellitus with diabetic polyneuropathy; Z79.4 - supervisor intermediates (current) use of insulin Is this a current diagnosis for this admission?: Yes Plan: fbs83. Decrease [id number] (6) Mass of left lung Is this a current diagnosis for this admission?: Yes - Inpatient Certification Medical Necessity: Significant Comorbidiites Make Outpatient Treatment Too Risky , Need Close Monitoring Due to Risk of Patient Decompensation, Risk of Complication if Not Cared For in Hospital, Risk of Diagnosis Which Will Require Inpatient Eval/Care/Monitoring
[2016-11-24] MEDS: LEVOTHYROXINE SODIUM 0.05 MG TABLET PO SCH (08:22)
[2016-11-24] MEDS: METOCLOPRAMIDE HCL 10 MG TABLET PO SCH ×4 (08:22→21:42)
[2016-11-24] MEDS: TRIAMCINOLONE ACETONIDE 0.5% CREAM 15 GM TP SCH ×2 (09:11→17:33)
[2016-11-24] MEDS: METOPROLOL SUCCINATE 25 MG TAB.SR.24H PO SCH (09:11)
[2016-11-24] MEDS: FAMOTIDINE 20 MG TABLET PO SCH (09:12)
[2016-11-24] MEDS: SIMVASTATIN 10 MG TABLET PO SCH (09:12)
[2016-11-24] MEDS: ENOXAPARIN SODIUM INJ 30 MG/0.3 ML DISP.SYRIN SUBCUT SCH (09:12)
[2016-11-24] MEDS: ASPIRIN 81 MG TABLET, ENT COATED PO SCH (09:12)
[2016-11-24] MEDS: AZITHROMYCIN 250 MG TABLET PO SCH (09:12)
[2016-11-24] MEDS: HUM INSULIN NPH/REG INSULIN HM 100 UNIT/1 ML 3 ML SUBCUT SCH (17:33)
[2016-11-25] MEDS: HUM INSULIN NPH/REG INSULIN HM 100 UNIT/1 ML 3 ML SUBCUT SCH ×2 (05:07→17:04)
[2016-11-25 06:26] LABS: ANION GAP 13 (5-19); BLOOD UREA NITROGEN 47 mg/dL (7-20); CALCIUM 9.3 mg/dL (8.4-10.2); CARBON DIOXIDE 22 mmol/L (22-30); CHLORIDE 106 mmol/L (98-107); CREATININE RESULT 3.29 mg/dL (0.52-1.25); GLUCOSE 130 mg/dL (75-110); POTASSIUM 3.9 mmol/L (3.6-5.0); SODIUM 141.3 mmol/L (137-145)
[2016-11-25] MEDS ORDERED: LUBIPROSTONE 24 MCG CAPSULE PO SCH (06:30)
--- NOTE | 2016-11-25 06:48 | PDOC PROGRESS REPORT ---
Subjective Progress Note for:: 11/25/16 Subjective:: rash less itchy. Wants home Physical Exam Vital Signs: Temp Pulse Resp BP Pulse Ox 98.3 F 89 18 124/70 93 11/25/16 03:51 11/25/16 03:51 11/25/16 03:51 11/25/16 03:51 11/25/16 03:51 Intake & Output 11/23/16 11/24/16 11/25/16 07:59 07:59 07:59 Intake Total 919 665 9054 Output Total 250 1690 1625 Balance 460 -975 335 Weight 235 lb 10.786 oz 235 lb 10.786 oz 235 lb 10.786 oz General appearance: PRESENT: no acute distress Respiratory exam: PRESENT: clear to auscultation jose Cardiovascular exam: ABSENT: diastolic murmur, irregular rhythm, systolic murmur GI/Abdominal exam: ABSENT: mass, organolmegaly, tenderness Extremities exam: ABSENT: pedal edema Neurological exam: PRESENT: oriented to situation Psychiatric exam: PRESENT: appropriate affect Skin exam: PRESENT: rash - more confluent torso,arms,head Results Laboratory Results: 11/25/16 05:49 11/25/16 05:49 Sodium 141.3 Potassium 3.9 Chloride 106 Carbon Dioxide 22 Anion Gap 13 BUN 47 H Creatinine 3.29 H Est GFR ( Amer) 23 L Est GFR (Non-Af Amer) 19 L Glucose 130 H Calcium 9.3 11/20/16 13:53 Troponin I 0.053 Impressions: Chest X-Ray 11/20/16 09:51 IMPRESSION: Left upper lobe mass. CT recommended for follow up Chest CT 11/20/16 12:33 IMPRESSION: There is considerable opacification in the left upper lobe posteriorly that is multicentric. There are also scattered ground-glass infiltrates right middle lobe left lower lobe superiorly. The findings favor multicentric pneumonia, but repeat evaluation after treatment is recommended to make sure that there is no left upper lobe mass. Assessment & Plan - Diagnosis (1) Bronchopneumonia Is this a current diagnosis for this admission?: Yes Plan: day 2 azith. PPD- at 24h. Quantiferon cant go till 5sep (2) Diastolic dysfunction with acute on chronic heart failure Is this a current diagnosis for this admission?: Yes (3) CKD stage 4 due to type 2 diabetes mellitus Is this a current diagnosis for this admission?: Yes Plan: cr coming down to 3.3 (4) Body mass index (BMI) of 60.0-69.9 in adult Is this a current diagnosis for this admission?: Yes (5) Type 2 diabetes mellitus with diabetic polyneuropathy Qualifiers: Diabetes mellitus superintendent system operation insulin use: with superintendent system operation use Qualified Code( s): E11.42 - Type 2 diabetes mellitus with diabetic polyneuropathy; Z79.4 - residential (current) use of insulin Is this a current diagnosis for this admission?: Yes Plan: bs better on 60bid (6) Mass of left lung Is this a current diagnosis for this admission?: Yes Plan: 1m cxr - Inpatient Certification Medical Necessity: Significant Comorbidiites Make Outpatient Treatment Too Risky , Need Close Monitoring Due to Risk of Patient Decompensation, Risk of Complication if Not Cared For in Hospital, Risk of Diagnosis Which Will Require Inpatient Eval/Care/Monitoring
[2016-11-25] MEDS: LEVOTHYROXINE SODIUM 0.05 MG TABLET PO SCH (08:36)
[2016-11-25] MEDS: METOCLOPRAMIDE HCL 10 MG TABLET PO SCH ×4 (08:36→21:03)
[2016-11-25] MEDS: FAMOTIDINE 20 MG TABLET PO SCH (09:36)
[2016-11-25] MEDS: LUBIPROSTONE 24 MCG CAPSULE PO SCH ×2 (09:36→17:04)
[2016-11-25] MEDS: AZITHROMYCIN 250 MG TABLET PO SCH (09:37)
[2016-11-25] MEDS: METOPROLOL SUCCINATE 25 MG TAB.SR.24H PO SCH (09:37)
[2016-11-25] MEDS: ASPIRIN 81 MG TABLET, ENT COATED PO SCH (09:37)
[2016-11-25] MEDS: ENOXAPARIN SODIUM INJ 30 MG/0.3 ML DISP.SYRIN SUBCUT SCH (09:37)
[2016-11-25] MEDS: SIMVASTATIN 10 MG TABLET PO SCH (09:37)
[2016-11-25] MEDS: TRIAMCINOLONE ACETONIDE 0.5% CREAM 15 GM TP SCH ×2 (09:38→17:05)
[2016-11-26] MEDS: HUM INSULIN NPH/REG INSULIN HM 100 UNIT/1 ML 3 ML SUBCUT SCH (06:12)
[2016-11-26 06:19] LABS: ANION GAP 11 (5-19); BLOOD UREA NITROGEN 48 mg/dL (7-20); CALCIUM 9.5 mg/dL (8.4-10.2); CARBON DIOXIDE 23 mmol/L (22-30); CHLORIDE 109 mmol/L (98-107); CREATININE RESULT 3.28 mg/dL (0.52-1.25); GLUCOSE 105 mg/dL (75-110); SODIUM 142.7 mmol/L (137-145)
--- NOTE | 2016-11-26 07:01 | PDOC DISCHARGE SUMMARY ---
General - Admit/Disc Date/PCP Admission Date/Primary Care Provider: 11/20/16 12:30 BAILEY GARCIA MD Discharge Date: 11/26/16 - Discharge Diagnosis (1) Bronchopneumonia Is this a current diagnosis for this admission?: Yes (2) Diastolic dysfunction with acute on chronic heart failure Is this a current diagnosis for this admission?: Yes (3) CKD stage 4 due to type 2 diabetes mellitus Is this a current diagnosis for this admission?: Yes (4) Body mass index (BMI) of 60.0-69.9 in adult Is this a current diagnosis for this admission?: Yes (5) Type 2 diabetes mellitus with diabetic polyneuropathy Is this a current diagnosis for this admission?: Yes (6) Mass of left lung Is this a current diagnosis for this admission?: Yes - Additional Information Resuscitation Status: Full Code Discharge Diet: Cardiac, Diabetic Discharge Activity: Activity As Tolerated Home Medications: Levothyroxine Sodium [Synthroid 0.05 mg Tablet] 0.05 mg PO DAILY #0 tablet 08/04 Metoclopramide HCl [Reglan 10 mg Tablet] 10 mg PO ACHS #0 tablet 08/04/16 Aspirin [Ecotrin 81 mg EC Tablet] 162 mg PO DAILY 11/20/16 Simvastatin [Zocor 10 mg Tablet] 20 mg PO DAILY 11/20/16 Triamcinolone Acetonide [Aristocort 0.1% Cream] 1 applic TOP BIDP PRN 11/20/16 Hum Insulin NPH/Reg Insulin Hm [Insulin 70-30 (NPH/Reg) 100 unit/mL] 60 unit SUBCUT Q12A unit 11/26/16 Metoprolol Succinate [Toprol Xl 25 mg Tab.sr] 25 mg PO DAILY 11 Days #30 tab.sr.24h 11/26/16 History of Present Illness Patient complains of: dyspnea History of Present Illness: SANTA SANTANA is a 56 year old male with hypertension and diastolic failure since 1990 and diabetic nephrosis since 2010. In July he was admitted for the same and sent home on furosemide 20mg daily with creatinine2.8=gfr24. Now he has had 1d campa pnd and is up 10# since july. Hospital Course Hospital Course: After furosemide 20mg iv bid 1d and qd 1d creatinine climbed from 2.8 to 3.5 and fell to 3.3 when furosemide was stopped. CT showed multicentric VIJAYA densities with air bronchograms. Levaquin was associated with red macular rash on upper body which faded when levaquin was stopped. Then he had 3d azithromycin. PPD was negative. Quantiferon was sent. Insulin was trimmed to 06mg bid to match less food in hospital. Metoprolol was added for bp and chf diastolic. Physical Exam Vital Signs: Temp Pulse Resp BP Pulse Ox 97.5 F 81 18 109/59 L 94 11/26/16 03:38 11/26/16 03:38 11/26/16 03:38 11/26/16 03:38 11/26/16 03:38 Intake & Output 11/24/16 11/25/16 11/26/16 07:59 07:59 07:59 Intake Total 715 1960 1150 Output Total 1690 1625 600 Balance -975 335 550 Weight 235 lb 10.786 oz 235 lb 10.786 oz 235 lb 10.786 oz General appearance: PRESENT: no acute distress Respiratory exam: PRESENT: clear to auscultation jose Cardiovascular exam: ABSENT: diastolic murmur, irregular rhythm, systolic murmur GI/Abdominal exam: ABSENT: mass, organolmegaly, tenderness Extremities exam: ABSENT: pedal edema Neurological exam: PRESENT: oriented to situation Psychiatric exam: PRESENT: appropriate affect Skin exam: PRESENT: rash - fading Results Laboratory Results: 11/26/16 05:32 11/20/16 15:35 Blood Blood Culture - Final NO GROWTH IN 5 DAYS Labs- Last Values WBC 13.5 10^3/uL (4.0-10.5) H 11/20/16 10:40 RBC 4.29 10^6/uL (4.35-5.55) L 11/20/16 10:40 Hgb 12.6 g/dL (13.5-17.0) L 11/20/16 10:40 Hct 38.3 % (37.9-51.0) 11/20/16 10:40 MCV 89 fl (80-97) 11/20/16 10:40 MCH 29.3 pg (27.0-33.4) 11/20/16 10:40 MCHC 32.8 g/dL (32.0-36.0) 11/20/16 10:40 RDW 15.8 % (11.5-14.0) H 11/20/16 10:40 Plt Count 209 10^3/uL (150-450) 11/20/16 10:40 Seg Neutrophils % 77.4 % (42-78) 11/20/16 10:40 Lymphocytes % 13.8 % (13-45) 11/20/16 10:40 Monocytes % 6.5 % (3-13) 11/20/16 10:40 Eosinophils % 1.6 % (0-6) 11/20/16 10:40 Basophils % 0.7 % (0-2) 11/20/16 10:40 Absolute Neutrophils 10.5 10^3/uL (1.7-8.2) H 11/20/16 10:40 Absolute Lymphocytes 1.9 10^3/uL (0.5-4.7) 11/20/16 10:40 Absolute Monocytes 0.9 10^3/uL (0.1-1.4) 11/20/16 10:40 Absolute Eosinophils 0.2 10^3/uL (0.0-0.6) 11/20/16 10:40 Absolute Basophils 0.1 10^3/uL (0.0-0.2) 11/20/16 10:40 PT 13.5 SEC (11.4-15.4) 11/20/16 10:40 INR 0.96 11/20/16 10:40 VBG pH 7.35 (7.30-7.42) 11/20/16 10:40 VBG pCO2 35.2 mmHg (35-63) 11/20/16 10:40 VBG HCO3 18.8 mmol/L (20-32) L 11/20/16 10:40 VBG Base Excess -6.1 mmol/L 11/20/16 10:40 Sodium 142.7 mmol/L (137-145) 11/26/16 05:32 Potassium 4.0 mmol/L (3.6-5.0) 11/26/16 05:32 Chloride 109 mmol/L (98-107) H 11/26/16 05:32 Carbon Dioxide 23 mmol/L (22-30) 11/26/16 05:32 Anion Gap 11 (5-19) 11/26/16 05:32 BUN 48 mg/dL (7-20) H 11/26/16 05:32 Creatinine 3.28 mg/dL (0.52-1.25) H 11/26/16 05:32 Est GFR ( Amer) 24 (>60) L 11/26/16 05:32 Est GFR (Non-Af Amer) 19 (>60) L 11/26/16 05:32 Glucose 105 mg/dL (75-110) 11/26/16 05:32 POC Glucose 104 mg/dL (70-110) 11/26/16 05:29 Hemoglobin A1c % 8.8 % (4.7-6.0) H 11/21/16 04:11 Calcium 9.5 mg/dL (8.4-10.2) 11/26/16 05:32 Magnesium 1.9 mg/dL (1.6-2.3) 11/20/16 10:40 Total Bilirubin 0.7 mg/dL (0.2-1.3) 11/20/16 10:40 Direct Bilirubin 0.5 mg/dL (0.0-0.4) H 11/20/16 10:40 Indirect Bilirubin Not Reportable 11/20/16 10:40 Neonat Total Bilirubin Not Reportable 11/20/16 10:40 AST 12 U/L (17-59) L 11/20/16 10:40 ALT 24 U/L (21-72) 11/20/16 10:40 Alkaline Phosphatase 105 U/L (38-126) 11/20/16 10:40 Creatine Kinase 63 U/L (55-170) 11/20/16 10:40 CK-MB (CK-2) 0.61 ng/mL (<4.55) 11/20/16 10:40 Troponin I 0.053 ng/mL 11/20/16 13:53 NT-Pro-B Natriuret Pep 4910 pg/mL (5-900) H 11/20/16 10:40 Total Protein 6.6 g/dL (6.3-8.2) 11/20/16 10:40 Albumin 3.2 g/dL (3.5-5.0) L 11/20/16 10:40 Triglycerides 149 mg/dL (<150) 11/21/16 04:11 Cholesterol 181.73 mg/dL (0-200) 11/21/16 04:11 LDL Cholesterol Direct 127 mg/dL (<100) H 11/21/16 04:11 VLDL Cholesterol 30.0 mg/dL (10-31) 11/21/16 04:11 HDL Cholesterol 34 mg/dL (>40) L 11/21/16 04:11 Lipase 131.3 U/L (23-300) 11/20/16 10:40 Urine Color YELLOW 11/21/16 19:20 Urine Appearance SLIGHTLY-CLOUDY 11/21/16 19:20 Urine pH 5.0 (5.0-9.0) 11/21/16 19:20 Ur Specific [place] 1.010 11/21/16 19:20 Urine Protein 100 mg/dL (NEGATIVE) H 11/21/16 19:20 Urine Glucose (UA) NEGATIVE mg/dL (NEGATIVE) 11/21/16 19:20 Urine Ketones NEGATIVE mg/dL (NEGATIVE) 11/21/16 19:20 Urine Blood MODERATE (NEGATIVE) H 11/21/16 19:20 Urine Nitrite NEGATIVE (NEGATIVE) 11/21/16 19:20 Urine Bilirubin NEGATIVE (NEGATIVE) 11/21/16 19:20 Urine Urobilinogen NEGATIVE mg/dL (<2.0) 11/21/16 19:20 Ur Leukocyte Esterase MODERATE (NEGATIVE) H 11/21/16 19:20 Urine WBC (Auto) 93 /HPF 11/21/16 19:20 Urine RBC (Auto) 5 /HPF 11/21/16 19:20 Urine Bacteria (Auto) TRACE /HPF 11/21/16 19:20 Urine WBC Clumps FEW /HPF 11/21/16 19:20 Squamous Epi Cells Auto 1 /HPF 11/21/16 19:20 Amorphous Sediment Auto TRACE /HPF 11/20/16 12:15 Urine Mucus (Auto) RARE /LPF 11/20/16 12:15 Urine Ascorbic Acid NEGATIVE (NEGATIVE) 11/21/16 19:20 Impressions: Chest X-Ray 11/20/16 09:51 IMPRESSION: Left upper lobe mass. CT recommended for follow up Chest CT 11/20/16 12:33 IMPRESSION: There is considerable opacification in the left upper lobe posteriorly that is multicentric. There are also scattered ground-glass infiltrates right middle lobe left lower lobe superiorly. The findings favor multicentric pneumonia, but repeat evaluation after treatment is recommended to make sure that there is no left upper lobe mass. Qualifiers PATEINT BEING DISCHARGED WITH ANY OF THE FOLLOWING DIAGNOSIS?: Heart Failure HF Pt being discharged on ACEI for LVEF less than 40%?: No Reason(s) for not prescribing ACEI:: Medical Contraindication - azotemia HF Pt being discharged on ARBS for LVEF less than 40%?: No Reason(s) for not prescribing ARBS:: Medical Contraindication Reason(s) for not prescribing Warfarin:: Not indicated - not systolic HF Pt discharged on evidence-based Beta Ciera:: Yes Plan Discharge Plan: home off furosemide and losartan. OV 3d
[2016-11-26 07:34] VITALS: BP 140/69
== END 2016-11-26 09:02 | disposition home or self-care (01) | DRG 291 ==
LOC: ER 09:34 → UNDOADMIN 12:30 → EH 12:30 → 5 14:43 → UNDOADMIN 18:04 → 5 18:04 → EH 18:04
PROVIDERS: ADMIT Family Medicine; ATTEND Family Medicine
DX: I13.0 Hypertensive heart and chronic kidney disease with heart failure and stage 1 through stage 4 chronic kidney disease, or unspecified chronic kidney disease (principal); J18.0 Bronchopneumonia, unspecified organism; I50.33 Acute on chronic diastolic (congestive) heart failure; N18.4 Chronic kidney disease, stage 4 (severe); Z68.43 Body mass index [BMI] 50.0-59.9, adult; J44.9 Chronic obstructive pulmonary disease, unspecified; E11.22 Type 2 diabetes mellitus with diabetic chronic kidney disease; E11.21 Type 2 diabetes mellitus with diabetic nephropathy; E11.42 Type 2 diabetes mellitus with diabetic polyneuropathy; L27.1 Localized skin eruption due to drugs and medicaments taken internally; T37.8X5A Adverse effect of other specified systemic anti-infectives and antiparasitics, initial encounter; Y92.230 Patient room in hospital as the place of occurrence of the external cause; E66.01 Morbid (severe) obesity due to excess calories; Z68.38 Body mass index [BMI] 38.0-38.9, adult; Z79.82 Long term (current) use of aspirin; Z79.4 Long term (current) use of insulin; Z79.899 Other long term (current) drug therapy; Z91.19 Patient's noncompliance with other medical treatment and regimen
CPT/HCPCS: 36415; 71010; 71250; 80048; 80053; 80061; 81001; 82550; 82553; 82803; 82962; 83036; 83690; 83735; 83880; 84484; 85025; 85610; 87040; 87086; 93005; 93010; 94640; 94660; 96374; 99291; J1650; J1815; J1940; J1956; J3490; J7620

== ENCOUNTER 2017-09-12 05:47 | Emergency (ER) | payer MEDICARE ==
--- NOTE | 2017-09-12 07:23 | ER Document Report ---
ED Medical Screen (RME) - General Chief Complaint: Shortness Of Breath Stated Complaint: CONGESTION,COUGH Time Seen by Provider: 09/12/17 07:22 Mode of Arrival: Ambulatory Information source: Patient Notes: Patient presents to the emergency department with reports of chest heaviness and chest pain. Reports chest heaviness for over 3 weeks. He was evaluated by Dr. Dickson 3 weeks ago provided with antibiotics but is not sure why. He reports the chest pain started yesterday. Patient is a diabetic and morbidly obese. TRAVEL OUTSIDE OF THE [place] IN LAST 30 DAYS: No - Related Data Allergies/Adverse Reactions: amoxicillin trihydrate [From Amoxil] Allergy (Verified 11/20/16 09:42) Generalized rash levofloxacin [From Levaquin] Allergy (Verified 11/24/16 06:37) Exanthematic Eruption mushrooms Allergy (Severe, Uncoded 11/20/16 09:42) Edema Past Medical History - Social History Chew tobacco use (# tins/day): No Frequency of alcohol use: None Drug Abuse: None Family history: CAD, CVA, Hyperlipidemia, Hypertension, Malignancy - Past Medical History Cardiac Medical History: Reports: Hx Congestive Heart Failure - acute & chronic diastolic, Hx DVT, Hx Hypercholesterolemia, Hx Hypertension Pulmonary Medical History: Reports: Hx Asthma, Hx Bronchitis, Hx Pneumonia Denies: Hx Tuberculosis Endocrine Medical History: Reports: Hx Diabetes Mellitus Type 1, Hx Diabetes Mellitus Type 2, Hx Hypothyroidism Renal/ Medical History: Reports: Hx Kidney Stones, Hx Renal Insufficiency - 25 %. Denies: Hx Peritoneal Dialysis Psychiatric Medical History: Reports: Hx Depression Past Surgical History: Reports: Hx Herniorrhaphy, Hx Kidney (Renal Surgery) - lithotripsy, Hx Umbilical Hernia, Other - lithtripsy. Denies: Hx Pacemaker - Immunizations Immunizations up to date: Yes Hx Diphtheria, Pertussis, Tetanus Vaccination: No Physical Exam - Vital signs Vitals: Temp Pulse Resp BP Pulse Ox 97.4 F 101 H 24 H 145/90 H 97 09/12/17 06:06 09/12/17 06:06 09/12/17 06:06 09/12/17 06:06 09/12/17 06:06 Course - Vital Signs Vital signs: Temp Pulse Resp BP Pulse Ox 97.4 F 101 H 24 H 145/90 H 97 09/12/17 06:06 09/12/17 06:06 09/12/17 06:06 09/12/17 06:06 09/12/17 06:06 Doctor's Discharge - Discharge Referrals: BAILEY GARCIA MD [Primary Care Provider] - Follow up as needed
[2017-09-12] MEDS ORDERED: ASPIRIN 81 MG TABLET, CHEWABLE PO ONE (07:26)
[2017-09-12 07:37] LABS: ABSOLUTE BASOPHILS # (AUTO) 0.1 10^3/uL (0.0-0.2); ABSOLUTE EOSINOPHILS # (AUTO) 0.7 10^3/uL (0.0-0.6); ABSOLUTE LYMPHOCYTES (AUTO) 1.4 10^3/uL (0.5-4.7); ABSOLUTE MONOCYTES (AUTO) 0.6 10^3/uL (0.1-1.4); ABSOLUTE NEUT (AUTO) 5.5 10^3/uL (1.7-8.2); BASOPHILS % (AUTO) 0.7 % (0-2); EOSINOPHILS % (AUTO) 8.3 % (0-6); HEMATOCRIT 40.9 % (37.9-51.0); HEMOGLOBIN 13.4 g/dL (13.5-17.0); MEAN CORPUSCULAR HEMOGLOBIN 30.1 pg (27.0-33.4); MEAN CORPUSCULAR HGB CONC 32.8 g/dL (32.0-36.0); MEAN CORPUSCULAR VOLUME 92 fl (80-97); MONOCYTES % (AUTO) 6.9 % (3-13); PLATELET COUNT 212 10^3/uL (150-450); RED BLOOD COUNT 4.45 10^6/uL (4.35-5.55); RED CELL DISTRIBUTION WIDTH 14.7 % (11.5-14.0); SEGMENTED NEUTROPHILS % (AUTO) 67.1 % (42-78); TOTAL CELLS COUNTED % (AUTO) 100 %; WHITE BLOOD COUNT 8.1 10^3/uL (4.0-10.5)
--- NOTE | 2017-09-12 07:48 | RADIOLOGY REPORT (SQ) ---
EXAM DESCRIPTION: XR CHEST 2 VIEWS COMPLETED DATE/TME: 09/12/2017 07:25 CLINICAL HISTORY: 57 years Male, chest pain COMPARISON: 8.29.17 FINDINGS: Adequate lung volume, clear parenchyma, normal cardiac silhouette, and intact bony thorax. IMPRESSION: No acute cardiopulmonary findings.
[2017-09-12 07:54] LABS: ALANINE AMINOTRANSFERASE 17 U/L (21-72); ALBUMIN 3.5 g/dL (3.5-5.0); ALKALINE PHOSPHATASE 101 U/L (38-126); ANION GAP 10 (5-19); ASPARTATE AMINO TRANSFERASE 20 U/L (17-59); BILIRUBIN,DIRECT 0.4 mg/dL (0.0-0.4); BILIRUBIN,TOTAL 0.4 mg/dL (0.2-1.3); BLOOD UREA NITROGEN 26 mg/dL (7-20); CALCIUM 8.9 mg/dL (8.4-10.2); CARBON DIOXIDE 24 mmol/L (22-30); CHLORIDE 108 mmol/L (98-107); CREATINE KINASE 72 U/L (55-170); GLUCOSE 362 mg/dL (75-110); TOTAL PROTEIN 7.4 g/dL (6.3-8.2)
[2017-09-12 08:03] LABS: CREATINE KINASE MB 1.2 ng/mL (<4.55); TROPONIN I 0.028 ng/mL
--- NOTE | 2017-09-12 09:36 | EKG REPORT ---
SEVERITY:- ABNORMAL ECG - SINUS RHYTHM LEFT AXIS DEVIATION CONSIDER ANTEROSEPTAL INFARCT : Confirmed by: Leah Lees 12-Sep-2017 09:35:32
[2017-09-12] MEDS ORDERED: IPRATROPIUM BROMIDE 0.02% NEB 0.5 MG/2.5 ML AMPUL NEB ONE (12:07)
[2017-09-12] MEDS ORDERED: ALBUTEROL SULFATE 0.083% NEB 2.5 MG/3 ML AMPUL NEB ONE (12:07)
--- NOTE | 2017-09-12 12:40 | ER Document Report ---
ED Respiratory Problem - General Mode of Arrival: Ambulatory Information source: Patient TRAVEL OUTSIDE OF THE [place] IN LAST 30 DAYS: No <BARBARA CISNEROS - Last Filed: 09/12/17 14:07> <SEAN VALERIO - Last Filed: 09/14/17 15:07> - General Chief Complaint: Shortness Of Breath Stated Complaint: CONGESTION,COUGH Time Seen by Provider: 09/12/17 07:22 Notes: Patient is a 57 year old male that presents to the emergency department today with complaints of a cough with associated chest heaviness for one week. Patient states that he thinks his chest heaviness is related to the cough he has had for the last several weeks. Patient states his cough has progressed along with his chest heaviness. Patient was prescribed antibiotics by his PCP but he says his cough has still gotten worse. (BARBARA CISNEROS) - Related Data Allergies/Adverse Reactions: amoxicillin trihydrate [From Amoxil] Allergy (Verified 11/20/16 09:42) Generalized rash levofloxacin [From Levaquin] Allergy (Verified 11/24/16 06:37) Exanthematic Eruption mushrooms Allergy (Severe, Uncoded 11/20/16 09:42) Edema Past Medical History - General Information source: Patient - Social History Smoking Status: Former Smoker Cigarette use (# per day): No Chew tobacco use (# tins/day): No Frequency of alcohol use: None Drug Abuse: None Lives with: Family Family History: Reviewed & Not Pertinent, Arthritis, CAD, DM, Hyperlipidemia, Hypertension, Malignancy Patient has suicidal ideation: No Patient has homicidal ideation: No - Past Medical History Cardiac Medical History: Reports: Hx Congestive Heart Failure - acute & chronic diastolic, Hx DVT, Hx Hypercholesterolemia, Hx Hypertension Pulmonary Medical History: Reports: Hx Asthma, Hx Bronchitis, Hx Pneumonia Endocrine Medical History: Reports: Hx Diabetes Mellitus Type 1, Hx Diabetes Mellitus Type 2, Hx Hypothyroidism Renal/ Medical History: Reports: Hx Kidney Stones, Hx Renal Insufficiency - 25 % Psychiatric Medical History: Reports: Hx Depression Past Surgical History: Reports: Hx Herniorrhaphy, Hx Kidney (Renal Surgery) - lithotripsy, Hx Umbilical Hernia, Other - lithtripsy - Immunizations Immunizations up to date: Yes Hx Diphtheria, Pertussis, Tetanus Vaccination: No Hx Pneumococcal Vaccination: 03/25/11 <BARBARA CISNEROS - Last Filed: 09/12/17 14:07> Review of Systems - Review of Systems Constitutional: No symptoms reported EENT: No symptoms reported Cardiovascular: No symptoms reported Respiratory: See HPI, Cough, Other - chest heaviness Gastrointestinal: No symptoms reported Genitourinary: No symptoms reported Male Genitourinary: No symptoms reported Musculoskeletal: No symptoms reported Skin: No symptoms reported Hematologic/Lymphatic: No symptoms reported Neurological/Psychological: No symptoms reported -: Yes All other systems reviewed and negative <BARBARA CISNEROS - Last Filed: 09/12/17 14:07> Physical Exam <AMELIABARBARA - Last Filed: 09/12/17 14:07> <SEAN VALERIO Timoteo - Last Filed: 09/14/17 15:07> - Vital signs Vitals: Temp Pulse Resp BP Pulse Ox 97.4 F 101 H 24 H 145/90 H 97 09/12/17 06:06 09/12/17 06:06 09/12/17 06:06 09/12/17 06:06 09/12/17 06:06 - Notes Notes: Physical Exam: General: Alert, morbidly obese, appears well. HEENT: Normocephalic. Atraumatic. PERRL. Extraocular movements intact. Oropharynx clear. Neck: Supple. Non-tender. Respiratory: No respiratory distress. Diffuse wheezing, no crackles. Cardiovascular: Regular rate and rhythm. Abdominal: Morbidly obese. No distension. Normal Bowel Sounds. Back: Non-tender. No deformity or step off. Extremities: Moves all four extremities. Upper extremities: Normal inspection. Normal ROM. Lower extremities: Normal inspection. No edema. Normal ROM. Neurological: Normal cognition. AAOx4. Normal speech. Psychological: Normal affect. Normal Mood. Skin: Warm. Dry. Normal color. (BARBARA CISNEROS) Course - Laboratory Result Diagrams: 09/12/17 06:59 09/12/17 06:59 <BARBARA CISNEROS - Last Filed: 09/12/17 14:07> - Laboratory Result Diagrams: 09/12/17 06:59 09/12/17 06:59 - EKG Interpretation by [facility] EKG shows normal: Sinus rhythm Rate: Normal Rhythm: NSR [place]/QRS: Left axis deviation <SEAN VALERIO - Last Filed: 09/14/17 15:07> - Re-evaluation Re-evalutation: 09/12/17 14:53 Patient states that his wheezing is greatly improved after nebulizer treatment. Patient's labs are within normal limits are trending within his baseline. I did discuss with him the need to start taking his sugars twice a day and report to his doctor in 1 week to let them know if they need to adjust his NovoLog. He will be prescribed doxycycline, steroids, and albuterol puffer to use the next 2 days 2 puffs every 4 hours Return precautions provided (SEAN VALERIO) - Vital Signs Vital signs: Temp Pulse Resp BP Pulse Ox 98.9 F 101 H 18 121/84 95 09/12/17 15:13 09/12/17 06:06 09/12/17 15:00 09/12/17 15:13 09/12/17 15:00 - Laboratory Laboratory results interpreted by me: 09/12/17 09/12/17 06:59 06:59 Hgb 13.4 L RDW 14.7 H Eosinophils % 8.3 H Absolute Eosinophils 0.7 H Chloride 108 H BUN 26 H Creatinine 3.03 H Est GFR ( Amer) 26 L Est GFR (Non-Af Amer) 21 L Glucose 362 H ALT 17 L Discharge <BARBARA CISNEROS - Last Filed: 09/12/17 14:07> <SEAN VALERIO - Last Filed: 09/14/17 15:07> - Discharge Clinical Impression: Bronchitis, Congestion of respiratory tract, Hyperglycemia Condition: Good Disposition: HOME, SELF-CARE Instructions: Bronchitis ([facility]), Bronchitis With Bronchospasm (Wheezing) ([facility]) Prescriptions: Albuterol Sulfate [Proair HFA Inhalation Aerosol 8.5 gm MDI] 2 puff IH Q4H PRN # 1 mdi PRN Reason: Doxycycline Hyclate 100 mg PO BID #14 capsule Prednisone [Deltasone 20 mg Tablet] 2 tab PO DAILY 5 Days #10 tablet Referrals: BAILEY GARCIA MD [Primary Care Provider] - Follow up in 1 week (For reevaluation of your wheezing and congestion as well as your blood sugar management) Scribe Attestation: 09/14/17 15:06 I personally performed the services described documentation, reviewed and edited the documentation which was dictated to describe my presence, and it accurately records my words and actions. (SEAN VALERIO) Scribe Documentation - Scribe Written by Albine:: Vashti Dan, 09/12/2017 1424 acting as scribe for :: Cuate <BARBARA CISNEROS - Last Filed: 09/12/17 14:07>
[2017-09-12 15:13] VITALS: BP 121/84
== END 2017-09-12 15:13 | disposition home or self-care (01) ==
LOC: ER 05:47
DX: E11.65 Type 2 diabetes mellitus with hyperglycemia (principal); J45.909 Unspecified asthma, uncomplicated; R09.89 Other specified symptoms and signs involving the circulatory and respiratory systems; R06.02 Shortness of breath; R05 Cough; R07.9 Chest pain, unspecified; Z87.891 Personal history of nicotine dependence
CPT/HCPCS: 93005; 94640 ×2; 99284; 36415; 82553; 82550; 85025; 80053; 84484; 71046; 93010; A9270 ×2; J3490

== ENCOUNTER 2018-04-19 12:27 | Emergency (ER) | payer MEDICARE ==
[2018-04-19] MEDS ORDERED: ACETAMINOPHEN 325 MG TABLET PO ONE (12:49)
--- NOTE | 2018-04-19 12:50 | ER Document Report ---
HPI - HPI Patient complains to provider of: Left upper extremity injury Time Seen by Provider: 04/19/18 12:42 Onset: This morning Onset/Duration: Sudden Quality of pain: Achy Pain Level: 5 Context: Patient states that his shoe was loose and that he tripped over the edge of it falling on the pavement around 11 AM today. Patient states he landed on his left upper extremity. Patient complains of pain to left shoulder and left forearm. Patient denies any head injury or loss of consciousness. Associated Symptoms: Other - Left upper extremity pain Exacerbated by: Movement Relieved by: Denies Similar symptoms previously: Yes Recently seen / treated by doctor: No - ROS ROS below otherwise negative: Yes Systems Reviewed and Negative: Yes All other systems reviewed and negative - NEURO Neurology: DENIES: Headache, Weakness - CARDIOVASCULAR Cardiovascular: DENIES: Chest pain - RESPIRATORY Respiratory: DENIES: Trouble Breathing, Coughing - GASTROINTESTINAL Gastrointestinal: DENIES: Nausea - MUSCULOSKELETAL Musculoskeletal: REPORTS: Extremity pain. DENIES: Back Pain, Neck Pain - DERM Skin Color: Normal Skin Problems: None Past Medical History - General Information source: Patient - Social History Smoking Status: Never Smoker Frequency of alcohol use: None Drug Abuse: None Lives with: Alone Family History: Reviewed & Not Pertinent, Arthritis, CAD, DM, Hyperlipidemia, Hypertension, Malignancy - Past Medical History Cardiac Medical History: Reports: Hx Congestive Heart Failure - acute & chronic diastolic, Hx DVT, Hx Hypercholesterolemia, Hx Hypertension Pulmonary Medical History: Reports: Hx Asthma, Hx Bronchitis, Hx Pneumonia Denies: Hx Tuberculosis Endocrine Medical History: Reports: Hx Diabetes Mellitus Type 1, Hx Diabetes Mellitus Type 2, Hx Hypothyroidism Renal/ Medical History: Reports: Hx Kidney Stones, Hx Renal Insufficiency - 25%. Denies: Hx Peritoneal Dialysis Psychiatric Medical History: Reports: Hx Depression Past Surgical History: Reports: Hx Herniorrhaphy, Hx Kidney (Renal Surgery) - lithotripsy, Hx Umbilical Hernia, Other - lithtripsy. Denies: Hx Pacemaker - Immunizations Immunizations up to date: Yes Hx Diphtheria, Pertussis, Tetanus Vaccination: No Hx Pneumococcal Vaccination: 03/25/11 Vertical Provider Document - CONSTITUTIONAL Agree With Documented VS: Yes Exam Limitations: No Limitations General Appearance: WD/WN, No Apparent Distress - INFECTION CONTROL TRAVEL OUTSIDE OF THE [place] IN LAST 30 DAYS: No - HEENT HEENT: Atraumatic, Normocephalic - NECK Neck: Normal Inspection - RESPIRATORY Respiratory: Breath Sounds Normal, No Respiratory Distress - CARDIOVASCULAR Cardiovascular: Regular Rate, Regular Rhythm Pulses: Normal: Radial - BACK Back: Normal Inspection - MUSCULOSKELETAL/EXTREMETIES Musculoskeletal/Extremeties: MAEW, FROM, Tender - Left shoulder joint tenderness, left humerus tenderness to the distal third, left forearm tenderness to proximal third, no obvious deformity, edema or ecchymosis. No dislocation. - NEURO Level of Consciousness: Awake, Alert, Appropriate Motor/Sensory: No Motor Deficit - DERM Integumentary: Warm, Dry Course - Vital Signs Vital signs: Temp Pulse Resp BP Pulse Ox 98.3 F 101 H 16 117/78 95 04/19/18 12:44 04/19/18 12:42 04/19/18 12:42 04/19/18 12:42 04/19/18 12:42 - Diagnostic Test Radiology reviewed: Image reviewed, Reports reviewed Procedures - Immobilization Left Shoulder Pre-Proc Neuro Vasc Exam: Normal Immobilizer type: Sling Performed by: PCT Post-Proc Neuro Vasc Exam: Normal Alignment checked and good: Yes Discharge - Discharge Clinical Impression: Left forearm pain Fall Qualifiers: Encounter type: initial encounter Qualified Code(s): W19.XXXA - Unspecified fall, initial encounter Sprain of left shoulder Qualifiers: Encounter type: initial encounter Shoulder sprain type: unspecified sprain Qualified Code(s): S43.402A - Unspecified sprain of left shoulder joint, initial encounter Condition: Stable Disposition: HOME, SELF-CARE Instructions: Acetaminophen, Muscle Strain ([facility]), Shoulder Injury ([facility]), Temporary Sling ([facility]) Additional Instructions: Return immediately for any new or worsening symptoms Followup with your primary care provider, call tomorrow to make a followup appointment Follow-up with orthopedics for any persistent pain or problems Wear sling while awake only for the next 4 days. Referrals: BAILEY GARCIA MD [Primary Care Provider] - Follow up as needed [facility] [Provider Group] - Follow up as needed
--- NOTE | 2018-04-19 14:17 | RADIOLOGY REPORT (SQ) ---
EXAM DESCRIPTION: FOREARM LEFT COMPLETED DATE/TIME: 04/19/2018 1:53 pm REASON FOR STUDY: fall, LUE pain COMPARISON: None. NUMBER OF VIEWS: Two views. TECHNIQUE: Two radiographic images acquired of the left forearm, including elbow and wrist in at [place] st one projection. LIMITATIONS: None. FINDINGS: MINERALIZATION: Normal. BONES: No acute fracture. No worrisome bone lesions. SOFT TISSUES: No obvious swelling or foreign body. Benign calcifications from fat necrosis along the dorsal aspect of the left arm OTHER: No other significant finding. IMPRESSION: NEGATIVE STUDY OF THE LEFT FOREARM. NO RADIOGRAPHIC EVIDENCE OF ACUTE INJURY. TECHNICAL DOCUMENTATION: JOB ID: [id number] [employer]- All Rights Reserved Reading location - IP/workstation name: [email or web address]
--- NOTE | 2018-04-19 14:18 | RADIOLOGY REPORT (SQ) ---
EXAM DESCRIPTION: HUMERUS LEFT COMPLETED DATE/TIME: 04/19/2018 1:53 pm REASON FOR STUDY: fall, LUE pain COMPARISON: None. NUMBER OF VIEWS: Two views. TECHNIQUE: Two radiographic images were acquired of the left humerus to include elbow and shoulder i n at least one projection. LIMITATIONS: None. FINDINGS: MINERALIZATION: Normal. BONES: No acute fracture or dislocation. No worrisome bone lesions. SOFT TISSUES: No obvious swelling or foreign body. OTHER: No other significant finding. IMPRESSION: NEGATIVE STUDY OF THE LEFT HUMERUS. NO RADIOGRAPHIC EVIDENCE OF ACUTE INJURY. TECHNICAL DOCUMENTATION: JOB ID: [id number] [employer]- All Rights Reserved Reading location - IP/workstation name: [email or web address]
--- NOTE | 2018-04-19 14:19 | RADIOLOGY REPORT (SQ) ---
EXAM DESCRIPTION: SHOULDER LEFT 2 OR MORE VIEWS COMPLETED DATE/TIME: 04/19/2018 1:53 pm REASON FOR STUDY: fall, LUE pain left shoulder pain COMPARISON: Left humerus two views same date NUMBER OF VIEWS: Three views. TECHNIQUE: Internal rotation, external rotation, and Y view images acquired of the left shoulder. LIMITATIONS: None. FINDINGS: MINERALIZATION: Normal. BONES: No acute fracture or dislocation. No worrisome bone lesions. JOINTS: No glenohumeral dislocation. No acromioclavicular joint widening or bony spurring VISUALIZED LUNGS AND RIBS: No pneumothorax. No rib fracture. SOFT TISSUES: No radiopaque foreign body. OTHER: No other significant finding. IMPRESSION: NEGATIVE STUDY OF THE LEFT SHOULDER. NO RADIOGRAPHIC EVIDENCE OF ACUTE INJURY. TECHNICAL DOCUMENTATION: JOB ID: [id number] [employer]- All Rights Reserved Reading location - IP/workstation name: [email or web address]
[2018-04-19] MEDS ORDERED: LIDOCAINE 5% (700 MG) TRANSDERMAL ADH..PATCH TP ONE (14:25)
[2018-04-19 14:50] VITALS: BP 126/78
== END 2018-04-19 14:50 | disposition home or self-care (01) ==
LOC: ER 12:27
DX: S43.402A Unspecified sprain of left shoulder joint, initial encounter (principal); M79.632 Pain in left forearm; M25.512 Pain in left shoulder; W01.0XXA Fall on same level from slipping, tripping and stumbling without subsequent striking against object, initial encounter; Y92.480 Sidewalk as the place of occurrence of the external cause; I10 Essential (primary) hypertension; Z86.718 Personal history of other venous thrombosis and embolism; J45.909 Unspecified asthma, uncomplicated; E11.9 Type 2 diabetes mellitus without complications
CPT/HCPCS: 99283; 73090; 73060; 73030; A9270

== ENCOUNTER 2018-05-10 07:05 | Emergency (ER) | payer MEDICARE ==
--- NOTE | 2018-05-10 07:44 | ER Document Report ---
ED General - General Stated Complaint: DIFFICULTY BREATHING Time Seen by Provider: 05/10/18 07:11 Primary Care Provider: BAILEY GARCIA MD [Primary Care Provider] - Follow up as needed Mode of Arrival: Medic Information source: Patient Notes: Patient is a 58-year-old male who presents to the emergency department via EMS for shortness of breath. 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 Patient denied having any episodes of chest pain or nausea. At the time of arrival patient's symptoms have completely resolved. Patient does have a significant past medical history for insulin-dependent diabetes, CHF, chronic kidney disease, hypertension, hyperlipidemia. Patient's primary care provider is Dr. Dickson patient does report he has been out of his insulin for approximately 1 week. Patient states he usually takes 70/30 insulin. TRAVEL OUTSIDE OF THE [place] IN LAST 30 DAYS: No - Related Data Allergies/Adverse Reactions: amoxicillin trihydrate [From Amoxil] Allergy (Verified 11/20/16 09:42) Generalized rash levofloxacin [From Levaquin] Allergy (Verified 11/24/16 06:37) Exanthematic Eruption mushrooms Allergy (Severe, Uncoded 11/20/16 09:42) Edema Past Medical History - General Information source: Patient - Social History Smoking Status: Never Smoker Frequency of alcohol use: None Drug Abuse: None Family History: Reviewed & Not Pertinent, Arthritis, CAD, DM, Hyperlipidemia, Hypertension, Malignancy - Past Medical History Cardiac Medical History: Reports: Hx Congestive Heart Failure - acute & chronic diastolic, Hx DVT, Hx Hypercholesterolemia, Hx Hypertension Pulmonary Medical History: Reports: Hx Asthma, Hx Bronchitis, Hx Pneumonia Denies: Hx Tuberculosis Endocrine Medical History: Reports: Hx Diabetes Mellitus Type 1, Hx Diabetes Mellitus Type 2, Hx Hypothyroidism Renal/ Medical History: Reports: Hx Kidney Stones, Hx Renal Insufficiency - 25%. Denies: Hx Peritoneal Dialysis Psychiatric Medical History: Reports: Hx Depression Past Surgical History: Reports: Hx Herniorrhaphy, Hx Kidney (Renal Surgery) - lithotripsy, Hx Umbilical Hernia, Other - lithtripsy. Denies: Hx Pacemaker - Immunizations Immunizations up to date: Yes Hx Diphtheria, Pertussis, Tetanus Vaccination: No Hx Pneumococcal Vaccination: 03/25/11 Review of Systems - Review of Systems Constitutional: denies: Fever, Weakness EENT: No symptoms reported Cardiovascular: No symptoms reported Respiratory: Short of breath Gastrointestinal: denies: Abdominal pain, Diarrhea, Nausea, Vomiting, Constipation Genitourinary: denies: Dysuria, Frequency, Flank pain, Hematuria Male Genitourinary: No symptoms reported Musculoskeletal: No symptoms reported Skin: Other - Diaphoresis Hematologic/Lymphatic: No symptoms reported Neurological/Psychological: No symptoms reported Physical Exam - Vital signs Vitals: Resp BP Pulse Ox 17 117/75 96 05/10/18 07:40 05/10/18 07:40 05/10/18 07:40 - Notes Notes: PHYSICAL EXAMINATION: GENERAL: Well-appearing, well-nourished and in no acute distress. HEAD: Atraumatic, normocephalic. EYES: Pupils equal round and reactive to light, extraocular movements intact, sclera anicteric, conjunctiva are normal. ENT: Nares patent, oropharynx clear without exudates. Moist mucous membranes. NECK: Normal range of motion, supple without lymphadenopathy LUNGS: Breath sounds clear to auscultation bilaterally and equal. No wheezes rales or rhonchi. HEART: Regular rate and rhythm without murmurs ABDOMEN: Soft, nontender, nondistended abdomen. No guarding, no rebound. No masses appreciated. Musculoskeletal: Normal range of motion, no pitting or edema. No cyanosis. NEUROLOGICAL: Cranial nerves grossly intact. Normal speech. Normal sensory, motor exams PSYCH: Normal mood, normal affect. SKIN: Warm, Dry, normal turgor, no rashes or lesions noted. Course - Re-evaluation Re-evalutation: Patient reports that he had an episode of shortness of breath with some mild diaphoresis while he was doing laundry just prior to arrival. He states he has been up all night as he does have trouble sleeping. Patient denies any symptoms at this time, states all symptoms have lately resolved. Patient denies any chest pain or pressure during the time of the episode or now. Physical examination is unremarkable. Skin warm and dry, lung sounds are clear to auscultation bilaterally. Workup initiated. CBC is unremarkable. CMP reveals an elevated creatinine of 3.3 however this is at patient's baseline. Troponin is negative glucose is elevated at 376, patient reports he takes insulin 70/30 but has been out for approximately 1 week. Chest x-ray is unremarkable with no evidence of cardiomegaly, infiltrate or pneumothorax. EKG reveals sinus rhythm, rate of 79, QTc 441, normal axis with no ST segment elevations or depressions. This is unchanged from patient's previous EKG on file. Urinalysis with large leukocyte esterase and WBC clumps present. Patient reports he has had a history of several episodes of urinary tract infection in the past with the last one being approximately 18 months ago. Patient has not seen a urologist. Patient will be given 1 g of IV ceftriaxone as well as a 500 cc normal saline bolus. Plan to discharge patient after repeat troponin comes back. Patient has continue to rest without any distress. Patient has been in sinus rhythm on the monitor with a rate in the 70s, blood pressure 156/88, pulse ox 96% on room air and patient is respiratory rate is 18. Patient has not had any evidence of hypotension, tachypnea, tachycardia or hypoxia while here in the emergency department. Repeat troponin is negative. Patient will be discharged home at this time in stable condition. - Vital Signs Vital signs: Temp Pulse Resp BP Pulse Ox 19 155/87 H 96 05/10/18 14:02 05/10/18 14:02 05/10/18 14:02 - Laboratory Result Diagrams: 05/10/18 08:10 05/10/18 08:10 Laboratory results interpreted by me: 05/10/18 05/10/18 05/10/18 08:10 08:10 09:55 Hgb 13.1 L Eosinophils % 8.7 H Absolute Eosinophils 0.7 H Carbon Dioxide 21 L BUN 28 H Creatinine 3.30 H Est GFR ( Amer) 23 L Est GFR (Non-Af Amer) 19 L Glucose 376 H POC Glucose AST 14 L ALT 20 L Alkaline Phosphatase 127 H Urine Protein 100 H Urine Glucose (UA) >=500 H Urine Blood MODERATE H Ur Leukocyte Esterase LARGE H 05/10/18 11:41 Hgb Eosinophils % Absolute Eosinophils Carbon Dioxide BUN Creatinine Est GFR ( Amer) Est GFR (Non-Af Amer) Glucose POC Glucose 328 H AST ALT Alkaline Phosphatase Urine Protein Urine Glucose (UA) Urine Blood Ur Leukocyte Esterase Discharge - Discharge Clinical Impression: Urinary tract infection Qualifiers: Urinary tract infection type: site unspecified Hematuria presence: with hematuria Qualified Code(s): N39.0 - Urinary tract infection, site not specified Condition: Stable Disposition: HOME, SELF-CARE Additional Instructions: URINARY TRACT INFECTION: Your evaluation indicates that you have a urinary tract infection. This is due to germs growing in the bladder. This is a common problem. This infection usually responds quickly to antibiotics. Your antibiotic should be taken exactly as prescribed. Drink plenty of fluids -- three to four quarts a day. Occasionally, a bladder anesthetic will be prescribed to help stop the feeling of urgency until the antibiotic has a chance to clear the infection. This may cause your urine to be dark orange. Certain urine infections require a culture. If the doctor obtained a culture, the results will be back in two days. You should call to see if a change in treatment is needed. A repeat urinalysis after you finish treatment is often recommended. The physician will let you know if further testing is required. Call the doctor if you develop fever, chills, flank pain, inability to urinate, or blood in the urine. ANTIBIOTIC THERAPY: You have been given an antibiotic prescription. It's important that you take all the medication, unless instructed otherwise by your physician. Failure to complete the entire course can result in relapse of your condition. Common side effects of antibiotics include nausea, intestinal cramping, or diarrhea. Women may develop vaginal yeast infections, and babies can get yeast (thrush) in the mouth following the use of antibiotics. Contact your physician if you develop significant side effects from this medication. Allergy to this antibiotic can result in hives, wheezing, faintness, or itching. If symptoms of allergy occur, stop the medication and call the doctor. CEPHALEXIN: The antibiotic you've been prescribed is a member of the cephalosporin class. This type of antibiotic covers a wide variety of infections, including those of the skin, lungs, and urinary tract. It's useful for staph infections. This antibiotic is slightly similar to the penicillin family. In rare cases, a person who is allergic to penicillin will also be allergic to this medication. If you have had a severe allergic reaction to penicillin, and have not taken this antibiotic since that time, notify your doctor. Antibiotics which cover many germs ("broad spectrum" antibiotics) are more likely to cause diarrhea or "yeast" infections. Women prone to vaginal yeast problems may suffer an attack after taking this antibiotic. In infants, oral thrush (white spots "stuck" on the cheek) or yeast diaper rash may result. See your doctor if these problems occur. Call at once if you develop itching, hives, shortness of breath, or lightheadedness. FOLLOW-UP CARE: If you have been referred to a physician for follow-up care, call the physicians office for an appointment as you were instructed or within the next two days. If you experience worsening or a significant change in your symptoms, notify the physician immediately or return to the Emergency Department at any time for re-evaluation. Please take medication as prescribed, finish the entire course of antibiotic even if your symptoms resolve. A urine culture has been sent, someone will call you in the next 48-72 hours or if there are any abnormalities found on this. Please follow-up with your primary care physician in the next 5-7 days for urine recheck. You may want to consider seeing a urologist as well considering this is not the first time he had a urinary tract infection. Please return to the emergency department if you develop a fever, abdominal pain, vomiting or any other symptom that is concerning to you. Prescriptions: Cephalexin [Cephalexin 500 MG Tablet] 500 mg PO BID #14 tablet Forms: Return to Work Referrals: BAILEY GARCIA MD [Primary Care Provider] - Follow up as needed
--- NOTE | 2018-05-10 08:06 | RADIOLOGY REPORT (SQ) ---
EXAM DESCRIPTION: CHEST SINGLE VIEW COMPLETED DATE/TIME: 05/10/2018 7:47 am REASON FOR STUDY: sob, diaphoresis COMPARISON: CT chest 11/20/2016 Chest films 09/12/2017, 07/31/2016 EXAM PARAMETERS: NUMBER OF VIEWS: One view. TECHNIQUE: Single frontal radiographic view of the chest acquired. RADIATION DOSE: NA LIMITATIONS: None. FINDINGS: LUNGS AND PLEURA: No opacities, masses or pneumothorax. No pleural effusion. MEDIASTINUM AND HILAR STRUCTURES: No masses. Contour normal. HEART AND VASCULAR STRUCTURES: Heart normal in size. Normal vasculature. BONES: No acute findings. HARDWARE: None in the chest. OTHER: No other significant finding. IMPRESSION: NO ACUTE RADIOGRAPHIC FINDING IN THE CHEST. TECHNICAL DOCUMENTATION: JOB ID: [id number] [employer]- All Rights Reserved Reading location - IP/workstation name: [email or web address]
[2018-05-10 08:39] LABS: ABSOLUTE EOSINOPHILS # (AUTO) 0.7 10^3/uL (0.0-0.6); ABSOLUTE LYMPHOCYTES (AUTO) 1.5 10^3/uL (0.5-4.7); ABSOLUTE MONOCYTES (AUTO) 0.6 10^3/uL (0.1-1.4); ABSOLUTE NEUT (AUTO) 5.5 10^3/uL (1.7-8.2); BASOPHILS % (AUTO) 0.5 % (0-2); EOSINOPHILS % (AUTO) 8.7 % (0-6); HEMATOCRIT 40.3 % (37.9-51.0); HEMOGLOBIN 13.1 g/dL (13.5-17.0); LYMPHOCYTES % (AUTO) 17.9 % (13-45); MEAN CORPUSCULAR HEMOGLOBIN 29.8 pg (27.0-33.4); MEAN CORPUSCULAR HGB CONC 32.5 g/dL (32.0-36.0); MEAN CORPUSCULAR VOLUME 92 fl (80-97); MONOCYTES % (AUTO) 6.7 % (3-13); PLATELET COUNT 359 10^3/uL (150-450); RED BLOOD COUNT 4.41 10^6/uL (4.35-5.55); RED CELL DISTRIBUTION WIDTH 13.9 % (11.5-14.0); SEGMENTED NEUTROPHILS % (AUTO) 66.2 % (42-78); TOTAL CELLS COUNTED % (AUTO) 100 %; WHITE BLOOD COUNT 8.3 10^3/uL (4.0-10.5)
--- NOTE | 2018-05-10 08:41 | EKG REPORT ---
SEVERITY:- ABNORMAL ECG - SINUS RHYTHM ABNRM R PROG, CONSIDER ASMI OR LEAD PLACEMENT : Confirmed by: Amanda Grijalva MD 10-May-2018 08:40:32
[2018-05-10 08:55] LABS: ALANINE AMINOTRANSFERASE 20 U/L (21-72); ALBUMIN 3.6 g/dL (3.5-5.0); ALKALINE PHOSPHATASE 127 U/L (38-126); ANION GAP 13 (5-19); ASPARTATE AMINO TRANSFERASE 14 U/L (17-59); BILIRUBIN,DIRECT 0.4 mg/dL (0.0-0.4); BILIRUBIN,TOTAL 0.4 mg/dL (0.2-1.3); BLOOD UREA NITROGEN 28 mg/dL (7-20); CALCIUM 9.1 mg/dL (8.4-10.2); CARBON DIOXIDE 21 mmol/L (22-30); CHLORIDE 105 mmol/L (98-107); POTASSIUM 4.8 mmol/L (3.6-5.0); SODIUM 139.1 mmol/L (137-145); TOTAL PROTEIN 6.9 g/dL (6.3-8.2)
[2018-05-10 09:00] LABS: GLUCOSE 376 mg/dL (75-110)
[2018-05-10 09:07] LABS: NT PRO BNP 740 pg/mL (5-900)
[2018-05-10 09:08] LABS: TROPONIN I < 0.012 ng/mL
[2018-05-10 10:32] LABS: APPEARANCE,URINE TURBID; BILIRUBIN,URINE NEGATIVE (NEGATIVE); COLOR,URINE YELLOW; GLUCOSE, URINE >=500 mg/dL (NEGATIVE); KETONES,URINE NEGATIVE (NEGATIVE); LEUKOCYTE ESTERASE,URINE LARGE (NEGATIVE); NITRITE,URINE NEGATIVE (NEGATIVE); PROTEIN,URINE 100 mg/dL (NEGATIVE); URINE SPECIFIC GRAVITY 1.012; UROBILINOGEN,URINE NEGATIVE mg/dL (<2.0)
[2018-05-10] MEDS ORDERED: NORMAL SALINE 1000 ML 500 ML IV ONE (10:55)
[2018-05-10] MEDS ORDERED: CEFTRIAXONE INJ 1000 MG VIAL IV ONE (11:10)
[2018-05-10] MEDS ORDERED: INSULIN REG, HUMAN 100 UNIT/ML 3 ML VIAL (PYX) SUBCUT ONE (11:51)
[2018-05-10 15:37] VITALS: BP 156/88
== END 2018-05-10 15:37 | disposition home or self-care (01) ==
LOC: ER 07:05
DX: N39.0 Urinary tract infection, site not specified (principal); R06.00 Dyspnea, unspecified; R06.02 Shortness of breath; I50.9 Heart failure, unspecified; E78.00 Pure hypercholesterolemia, unspecified; I11.0 Hypertensive heart disease with heart failure; E11.9 Type 2 diabetes mellitus without complications; Z88.0 Allergy status to penicillin; Z87.442 Personal history of urinary calculi; Z86.718 Personal history of other venous thrombosis and embolism; Z88.3 Allergy status to other anti-infective agents; Z79.4 Long term (current) use of insulin
CPT/HCPCS: 93005; 99285; 96361; 96374; 36415; 87086; 82962; 85025; 87088; 80053; 81001; 84484; 83880; 71045; 93010; A9270; J0696; J7030; J1815

== ENCOUNTER 2018-12-26 13:16 | Inpatient (IN) | payer MEDICARE ==
[2018-12-26] MEDS ORDERED: ASPIRIN 81 MG TABLET, CHEWABLE PO ONE (13:38)
--- NOTE | 2018-12-26 13:38 | ER Document Report ---
ED Medical Screen (RME) - General Chief Complaint: Shortness Of Breath Stated Complaint: SHORTNESS OF BREATH Time Seen by Provider: 12/26/18 13:35 Primary Care Provider: BAILEY GARCIA MD [Primary Care Provider] - Follow up as needed Mode of Arrival: Wheelchair Information source: Patient Notes: 58-year-old male presented to ED with weakness shortness of breath and tired times a week. Chest pain and abdominal pain. He states that chest pain and abdominal pain nicely is from his coughing. He is alert oriented respirations regular and unlabored speaking in full sentences at this time. He is in a wheelchair he does have a BMI of 51.6. He states he has a history of kidney failure, diabetes, CHF, asthma, pneumonia, with kidney stone surgeries and umbilical hernia surgery. 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 I have greeted and performed a rapid initial assessment of this patient. A comprehensive ED assessment and evaluation of the patient, analysis of test results and completion of medical decision making process will be conducted by an additional ED providers. TRAVEL OUTSIDE OF THE [place] IN LAST 30 DAYS: No - Related Data Allergies/Adverse Reactions: amoxicillin trihydrate [From Amoxil] Allergy (Verified 11/20/16 09:42) Generalized rash levofloxacin [From Levaquin] Allergy (Verified 11/24/16 06:37) Exanthematic Eruption mushrooms Allergy (Severe, Uncoded 11/20/16 09:42) Edema Past Medical History - Social History Family history: CAD, CVA, Hyperlipidemia, Hypertension, Malignancy - Past Medical History Cardiac Medical History: Reports: Hx Congestive Heart Failure - acute & chronic diastolic, Hx DVT, Hx Hypercholesterolemia, Hx Hypertension Pulmonary Medical History: Reports: Hx Asthma, Hx Bronchitis, Hx Pneumonia Denies: Hx Tuberculosis Endocrine Medical History: Reports: Hx Diabetes Mellitus Type 1, Hx Diabetes Mellitus Type 2, Hx Hypothyroidism Renal/ Medical History: Reports: Hx Kidney Stones, Hx Renal Insufficiency - 25%. Denies: Hx Peritoneal Dialysis Psychiatric Medical History: Reports: Hx Depression Past Surgical History: Reports: Hx Herniorrhaphy, Hx Kidney (Renal Surgery) - lithotripsy, Hx Umbilical Hernia, Other - lithtripsy. Denies: Hx Pacemaker - Immunizations Immunizations up to date: Yes Hx Diphtheria, Pertussis, Tetanus Vaccination: No Physical Exam - Vital signs Vitals: Pulse Resp BP Pulse Ox 92 20 151/102 H 93 12/26/18 13:20 12/26/18 13:20 12/26/18 13:20 12/26/18 13:20 Course - Vital Signs Vital signs: Temp Pulse Resp BP Pulse Ox 92 20 151/102 H 93 12/26/18 13:20 12/26/18 13:20 12/26/18 13:20 12/26/18 13:20 Doctor's Discharge - Discharge Referrals: BAILEY GARCIA MD [Primary Care Provider] - Follow up as needed
[2018-12-26] MEDS ORDERED: IPRATROPIUM/ALBUTEROL 0.5-2.5 MG/3 ML AMPUL NEB ONE ×2 (13:40→18:11)
[2018-12-26] MEDS: ALBUTEROL SULFATE 0.083% NEB 2.5 MG/3 ML AMPUL NEB SCH ×2 (14:10→14:28)
[2018-12-26 14:33] LABS: ABSOLUTE BASOPHILS # (AUTO) 0.1 10^3/uL (0.0-0.2); ABSOLUTE EOSINOPHILS # (AUTO) 0.9 10^3/uL (0.0-0.6); ABSOLUTE LYMPHOCYTES (AUTO) 1.5 10^3/uL (0.5-4.7); ABSOLUTE MONOCYTES (AUTO) 0.5 10^3/uL (0.1-1.4); ABSOLUTE NEUT (AUTO) 3.9 10^3/uL (1.7-8.2); BASOPHILS % (AUTO) 0.8 % (0-2); EOSINOPHILS % (AUTO) 12.8 % (0-6); HEMATOCRIT 41.3 % (37.9-51.0); HEMOGLOBIN 13.2 g/dL (13.5-17.0); LYMPHOCYTES % (AUTO) 21.8 % (13-45); MEAN CORPUSCULAR HEMOGLOBIN 29.7 pg (27.0-33.4); MEAN CORPUSCULAR HGB CONC 31.9 g/dL (32.0-36.0); MEAN CORPUSCULAR VOLUME 93 fl (80-97); MONOCYTES % (AUTO) 7.4 % (3-13); PLATELET COUNT 257 10^3/uL (150-450); RED BLOOD COUNT 4.43 10^6/uL (4.35-5.55); RED CELL DISTRIBUTION WIDTH 15.5 % (11.5-14.0); SEGMENTED NEUTROPHILS % (AUTO) 57.2 % (42-78); TOTAL CELLS COUNTED % (AUTO) 100 %; WHITE BLOOD COUNT 6.7 10^3/uL (4.0-10.5)
[2018-12-26 14:51] LABS: ALBUMIN 3.6 g/dL (3.5-5.0); ALKALINE PHOSPHATASE 88 U/L (38-126); ANION GAP 12 (5-19); ASPARTATE AMINO TRANSFERASE 22 U/L (17-59); BILIRUBIN,DIRECT 0.3 mg/dL (0.0-0.4); BILIRUBIN,TOTAL 0.4 mg/dL (0.2-1.3); BLOOD UREA NITROGEN 29 mg/dL (7-20); CALCIUM 8.4 mg/dL (8.4-10.2); CARBON DIOXIDE 23 mmol/L (22-30); CHLORIDE 105 mmol/L (98-107); CREATINE KINASE 179 U/L (55-170); GLUCOSE 209 mg/dL (75-110); POTASSIUM 3.7 mmol/L (3.6-5.0); TOTAL PROTEIN 7.2 g/dL (6.3-8.2)
--- NOTE | 2018-12-26 14:54 | RADIOLOGY REPORT (SQ) ---
EXAM DESCRIPTION: CHEST 2 VIEWS COMPLETED DATE/TIME: 12/26/2018 2:45 pm REASON FOR STUDY: cough congestion chest pain COMPARISON: 05/10/2018 EXAM PARAMETERS: NUMBER OF VIEWS: two views TECHNIQUE: Digital Frontal and Lateral radiographic views of the chest acquired. RADIATION DOSE: NA LIMITATIONS: none FINDINGS: LUNGS AND PLEURA: Ill-defined retrocardiac opacities. Mild central vascular congestion an d interstitial prominence. No large effusion. No pneumothorax. MEDIASTINUM AND HILAR STRUCTURES: No masses or contour abnormalities. HEART AND VASCULAR STRUCTURES: Enlarged cardiac silhouette. Central vascular congestion. BONES: No acute findings. HARDWARE: None in the chest. OTHER: No other significant finding. IMPRESSION: Ill-defined retrocardiac opacity suspicious for pneumonia. Enlarged cardiac silhouette with central vascular congestion. TECHNICAL DOCUMENTATION: JOB ID: [id number] [employer]- All Rights Reserved Reading location - IP/workstation name: [email or web address]
[2018-12-26 15:00] LABS: CREATINE KINASE MB 2.27 ng/mL (<4.55)
[2018-12-26] MEDS ORDERED: AZITHROMYCIN INJ 500 MG VIAL IV ONE (18:03)
[2018-12-26] MEDS ORDERED: CEFTRIAXONE 1 GM/D5W RTU 1 GM/50 ML RTUPB IV ONE (18:03)
[2018-12-26] MEDS ORDERED: METHYLPREDNISOLONE INJ 125 MG/2 ML SDV IV ONE (18:11)
--- NOTE | 2018-12-26 18:31 | ER Document Report ---
Entered by BARBARA CISNEROS SCRIBE 12/26/18 172 Acting as scribe for:MARLENI KOHLER DO ED Respiratory Problem - General Chief Complaint: Cough Stated Complaint: SHORTNESS OF BREATH Time Seen by Provider: 12/26/18 13:35 Primary Care Provider: BAILEY GARCIA MD [Primary Care Provider] - Follow up as needed Mode of Arrival: Wheelchair Information source: Patient Notes: Patient is a 58-year-old male with asthma who presents to the emergency department today with complaints of shortness of breath with an increasingly productive cough for a week. Patient states he is not on home oxygen. Patient states he has dyspnea on exertion as well. Patient states he has had pneumonia twice in the past but not for several years. Patient denies a history of COPD but states that he does have asthma. He is a lifetime non-smoker. Patient states he is not bringing much up with his cough but "occasionally gets a good one" with green sputum. TRAVEL OUTSIDE OF THE [place] IN LAST 30 DAYS: No - HPI Patient complains to provider of: Short of breath Onset: Last week Duration: Continuous, Worse/persistent Quality of pain: No pain Severity: None Pain Level: Denies Context: Hx asthma Short of Breath: Moderate Cough: Productive Sputum color: Green At home treatment: denies: Bronchodilators, CPAP, Diuretics, Inhaled steroids, Oral steroids, Oxygen, Singulair, Theophylline - Related Data Allergies/Adverse Reactions: amoxicillin trihydrate [From Amoxil] Allergy (Verified 11/20/16 09:42) Generalized rash levofloxacin [From Levaquin] Allergy (Verified 11/24/16 06:37) Exanthematic Eruption mushrooms Allergy (Severe, Uncoded 11/20/16 09:42) Edema Past Medical History - General Information source: Patient - Social History Smoking Status: Never Smoker Cigarette use (# per day): No Chew tobacco use (# tins/day): No Frequency of alcohol use: None Drug Abuse: None Lives with: Family Family History: Reviewed & Not Pertinent, Arthritis, CAD, DM, Hyperlipidemia, Hypertension, Malignancy Patient has suicidal ideation: No Patient has homicidal ideation: No - Past Medical History Cardiac Medical History: Reports: Hx Congestive Heart Failure - acute & chronic diastolic, Hx DVT, Hx Hypercholesterolemia, Hx Hypertension Pulmonary Medical History: Reports: Hx Asthma, Hx Bronchitis, Hx Pneumonia Endocrine Medical History: Reports: Hx Diabetes Mellitus Type 2, Hx Hypothyroidism Renal/ Medical History: Reports: Hx Kidney Stones, Hx Renal Insufficiency - 25% Psychiatric Medical History: Reports: Hx Depression Past Surgical History: Reports: Hx Herniorrhaphy, Hx Kidney (Renal Surgery) - lithotripsy, Hx Umbilical Hernia, Other - lithtripsy - Immunizations Immunizations up to date: Yes Hx Diphtheria, Pertussis, Tetanus Vaccination: No Hx Pneumococcal Vaccination: 03/25/11 Review of Systems - Review of Systems Constitutional: No symptoms reported EENT: No symptoms reported Cardiovascular: No symptoms reported Respiratory: See HPI, Cough, Short of breath Gastrointestinal: No symptoms reported Genitourinary: No symptoms reported Male Genitourinary: No symptoms reported Musculoskeletal: No symptoms reported Skin: No symptoms reported Hematologic/Lymphatic: No symptoms reported Neurological/Psychological: No symptoms reported -: Yes All other systems reviewed and negative Physical Exam - Vital signs Vitals: Pulse Resp BP Pulse Ox 92 20 151/102 H 93 12/26/18 13:20 12/26/18 13:20 12/26/18 13:20 12/26/18 13:20 Interpretation: Normal - General General appearance: Alert In distress: Mild - HEENT Head: Normocephalic, Atraumatic Cornea: Normal Mucous membranes: Dry Pharynx: Normal Neck: Normal - Respiratory Respiratory status: Respiratory distress - Mild Breath sounds: Rhonchi, Wheezing - Abdominal Inspection: Morbidly Obese Tenderness: Nontender - Back Back: Normal - Extremities General upper extremity: Normal inspection, Normal ROM, Normal strength General lower extremity: Edema, Normal ROM, Normal strength - Neurological Neuro grossly intact: Yes Cognition: Normal Orientation: AAOx4 Levon Coma Scale Eye Opening: Spontaneous Acworth Coma Scale Verbal: Oriented Acworth Coma Scale Motor: Obeys Commands Levon Coma Scale Total: 15 Speech: Normal Motor strength normal: LUE, RUE, LLE, RLE Sensory: Normal - Psychological Associated symptoms: Normal affect, Normal mood - Skin Skin Temperature: Warm Skin Moisture: Dry Course - Re-evaluation Re-evalutation: 12/26/18 18:24 Patient is a 58-year-old male with a history of asthma who comes in with difficulty breathing. He does not wear oxygen at home and he does not use any inhalers at home. He has not had any difficulty with asthma in quite some time. Patient has had increasingly productive cough and trouble breathing over the last week. Patient is wheezing on exam. Pneumonia on x-ray. When the patient is sitting in the bed, not moving he has some mild dyspnea with talking only. However, when he stands up and starts to ambulate, he comes very dyspneic and drops his oxygen saturation below 88%. Discussed with the hospitalist, and given pneumonia on chest x-ray with wheezing, hypoxia and lack of oxygen at home, patient will be admitted for further management. Blood cultures have been sent. Patient has not had a hospital admission in over 3 months so Rocephin and azithromycin have been ordered for him. Of note, he is allergic to Levaquin. Patient is agreeable to this plan and grateful for care. - Vital Signs Vital signs: Temp Pulse Resp BP Pulse Ox 92 20 151/102 H 93 12/26/18 13:20 12/26/18 13:20 12/26/18 13:20 12/26/18 13:20 - Laboratory Result Diagrams: 12/26/18 14:19 12/26/18 14:19 Laboratory results interpreted by me: 12/26/18 12/26/18 12/26/18 14:19 14:19 14:19 Hgb 13.2 L MCHC 31.9 L RDW 15.5 H Eos % (Auto) 12.8 H Absolute Eos (auto) 0.9 H BUN 29 H Creatinine 3.85 H Est GFR ( Amer) 19 L Est GFR (MDRD) Non-Af 16 L Glucose 209 H Creatine Kinase 179 H NT-Pro-B Natriuret Pep 907 H Critical Care Note - Critical Care Note Total time excluding time spent on procedures (mins): 35 - Evaluation and management of difficulty breathing, hypoxia with exertion, multiple evaluations, treatment of wheezing, coordination of admission, counseling patient Discharge - Discharge Clinical Impression: Obesity Qualifiers: Obesity type: unspecified obesity type Obesity classification: unspecified obesity classification Serious obesity comorbidity presence: unspecified whether serious comorbidity present Qualified Code(s): E66.9 - Obesity, unspecified Pneumonia Qualifiers: Pneumonia type: due to unspecified organism Laterality: unspecified laterality Lung location: unspecified part of lung Qualified Code(s): J18.9 - Pneumonia, unspecified organism Asthma exacerbation Qualifiers: Asthma severity: mild Asthma persistence: intermittent Qualified Code(s): J45.21 - Mild intermittent asthma with (acute) exacerbation Condition: Stable Disposition: ADMITTED INPATIENT Admitting Provider: Raul (Hospitalist) Unit Admitted: Telemetry I personally performed the services described in the documentation, reviewed and edited the documentation which was dictated to the scribe in my presence, and it accurately records my words and actions.
[2018-12-26 18:36] LABS: A TYPE INFLUENZA AG NEGATIVE (NEGATIVE); B INFLUENZA AG NEGATIVE (NEGATIVE)
[2018-12-26] MEDS: MAGNESIUM SULFATE/D5W 1 GM/100 ML RTUPB IV SCH ×2 (18:55→19:58)
[2018-12-26] MEDS ORDERED: ACETAMINOPHEN 325 MG TABLET PO PRN (19:00)
[2018-12-26] MEDS ORDERED: LEVALBUTEROL HCL NEB 1.25 MG/3 ML AMPUL NEB PRN (19:00)
[2018-12-26] MEDS ORDERED: DEXTROSE 50%-WATER 25 GM/50 ML DISP.SYRIN IV PRN ×2 (19:18)
[2018-12-26] MEDS ORDERED: GLUCAGON,HUMAN RECOMB 1 MG INJ IM PRN (19:18)
[2018-12-26] MEDS ORDERED: DEXTROSE 40% GEL 15 GM TUBE PO PRN ×2 (19:18)
--- NOTE | 2018-12-26 19:40 | PDOC H&P ---
History of Present Illness Admission Date/PCP: 12/26/18 18:34 BAILEY GARCIA MD Patient complains of: Increasing shortness of breath History of Present Illness: SANTA SANTANA is a 58 year old male with morbid obesity and a history of congestive heart failure, diabetes mellitus, hypertension and chronic kidney disease presents with increasing shortness of breath over the last 4 to 5 days. His primary care provider is Dr. Garcia and his specification manager is Dr. Bey. He states that he did not notice any fever or chills. He did feel cold and occasionally his head would sweat at night. He had a moist cough but was not coughing anything up. From Saturday when the shortness of breath began through today he has declined. Evaluation included chest x-ray which showed retrocardiac infiltrate. His serum creatinine was elevated. His serum glucose was elevated. He had a normal white blood cell count. The patient was referred to the hospital service for admission. Past Medical History Cardiac Medical History: Reports: Congestive Heart Failure - acute & chronic diastolic, DVT, Hyperlipidema, Hypertension Pulmonary Medical History: Reports: Asthma, Bronchitis, Pneumonia Denies: Tuberculosis Endocrine Medical History: Reports: Diabetes Mellitus Type 1, Diabetes Mellitus Type 2, Hypothyroidism Psychiatric Medical History: Reports: Depression Past Surgical History Past Surgical History: Reports: Herniorrhaphy, Other - lithtripsy Denies: Pacemaker Social History Information Source: Patient Lives with: Family Smoking Status: Never Smoker Electronic Cigarette use?: No Frequency of Alcohol Use: None Hx Recreational Drug Use: No Drugs: None Hx Prescription Drug Abuse: No - Advance Directive Resuscitation Status: Full Code Surrogate healthcare decision maker:: Reviewed [facility] proxy Family History Family History: Arthritis, CAD, DM, Hyperlipidemia, Hypertension, Malignancy Parental Family History Reviewed: Yes Children Family History Reviewed: Yes Sibling(s) Family History Reviewed.: Yes Medication/Allergy Home Medications: Insulin Regular, Human [Humulin R U-500 Kwikpen] 90 units SQ Q12 12/26/18 Allergies/Adverse Reactions: amoxicillin trihydrate [From Amoxil] Allergy (Verified 11/20/16 09:42) Generalized rash levofloxacin [From Levaquin] Allergy (Verified 11/24/16 06:37) Exanthematic Eruption mushrooms Allergy (Severe, Uncoded 11/20/16 09:42) Edema Review of Systems All systems: reviewed and no additional remarkable complaints except as stated Constitutional: PRESENT: anorexia, night sweats Cardiovascular: PRESENT: edema Respiratory: PRESENT: cough, dyspnea. ABSENT: sputum Genitourinary: PRESENT: nocturia Physical Exam Vital Signs: Temp Pulse Resp BP Pulse Ox 92 20 108/89 H 97 12/26/18 13:20 12/26/18 19:01 12/26/18 19:01 12/26/18 19:01 Intake & Output 12/25/18 12/26/18 12/27/18 06:59 06:59 06:59 Intake Total 50 Balance 50 Weight 145.15 kg General appearance: PRESENT: no acute distress, cooperative, morbidly obese, well-developed Head exam: PRESENT: atraumatic, normocephalic Eye exam: PRESENT: conjunctiva pink, EOMI. ABSENT: scleral icterus Ear exam: PRESENT: normal external ear exam. ABSENT: bleeding, drainage Mouth exam: PRESENT: moist, neck supple, tongue midline Teeth exam: ABSENT: poor dentation Respiratory exam: PRESENT: decreased breath sounds - At bases, rales, symmetrical. ABSENT: rhonchi, stridor, tachypnea, wheezes Cardiovascular exam: PRESENT: RRR, +S1, +S2 GI/Abdominal exam: PRESENT: distended - Protuberant abdomen, normal bowel sounds, soft. ABSENT: guarding, tenderness Extremities exam: PRESENT: +2 edema Musculoskeletal exam: PRESENT: ambulatory Neurological exam: PRESENT: alert, awake, oriented to person, oriented to place, oriented to time, oriented to situation, CN II-XII grossly intact Psychiatric exam: PRESENT: appropriate affect, normal mood. ABSENT: agitated, anxious Skin exam: PRESENT: dry, normal color, warm. ABSENT: rash Results Laboratory Results: 12/26/18 14:19 12/26/18 14:19 12/26/18 12/26/18 14:19 14:19 WBC 6.7 RBC 4.43 Hgb 13.2 L Hct 41.3 MCV 93 MCH 29.7 MCHC 31.9 L RDW 15.5 H Plt Count 257 Seg Neutrophils % 57.2 Sodium 140.0 Potassium 3.7 Chloride 105 Carbon Dioxide 23 Anion Gap 12 BUN 29 H Creatinine 3.85 H Est GFR ( Amer) 19 L Glucose 209 H Calcium 8.4 Magnesium 2.0 Total Bilirubin 0.4 AST 22 Alkaline Phosphatase 88 Total Protein 7.2 Albumin 3.6 12/26/18 12/26/18 12/26/18 14:19 14:19 18:03 Creatine Kinase 179 H CK-MB (CK-2) 2.27 Troponin I 0.033 NT-Pro-B Natriuret Pep 907 H Impressions: Chest X-Ray 12/26/18 13:39 IMPRESSION: Ill-defined retrocardiac opacity suspicious for pneumonia. Enlarged cardiac silhouette with central vascular congestion. Assessment and Plan - Diagnosis (1) Pneumonia Qualifiers: Pneumonia type: due to unspecified organism Laterality: left Lung location: lower lobe of lung Qualified Code(s): J18.1 - Lobar pneumonia, unspecified organism Is this a current diagnosis for this admission?: Yes (2) Asthma exacerbation Qualifiers: Asthma severity: mild Asthma persistence: intermittent Qualified Code(s): J45.21 - Mild intermittent asthma with (acute) exacerbation Is this a current diagnosis for this admission?: Yes (3) Chronic diastolic heart failure Is this a current diagnosis for this admission?: Yes (4) CKD stage 4 due to type 2 diabetes mellitus Is this a current diagnosis for this admission?: Yes (5) Morbid obesity with BMI of 50.0-59.9, adult Is this a current diagnosis for this admission?: Yes (6) Diabetes mellitus type 2 in obese Is this a current diagnosis for this admission?: Yes - Plan Summary Summary: 12/26/2018- pneumonia-left retrocardiac infiltrate. Difficult to see due to cardiomegaly. Rocephin and azithromycin started. He is not a smoker and so possibly an atypical bacteria versus a pneumococcus. Clearly community-acquired. Exacerbation of asthma-the patient was never a smoker. He has a congested cough. He will receive scheduled DuoNeb's with the addition of budesonide and as needed Xopenex will be available. Oxygen supplementation as required. He will also be on prednisone. Diabetes mellitus type 2 in obese-he takes 90 units of regular insulin twice daily. He does use the U500 concentration. We will provide regular insulin in the normal concentration. In addition he will be on a Humalog sliding scale as well as diabetic diet. Chronic kidney failure-the patient has diabetes and is not on an NG of tension receptor calin or TOI inhibitor. I will start low-dose lisinopril at 2.5 mg. In addition I will start furosemide 20 mg daily. Chronic diastolic heart failure-patient had an echo from several years ago that revealed grade 1/4 diastolic failure with normal ejection fraction. I will repeat an echocardiogram as this may help determine the ideal medication regimen for the patient. We will currently hold on beta-calin due to the underlying respiratory disease. Morbid obesity-the patient's BMI is 51.6. He states that he has already lost over 100 pounds. We will continue a cardiac/diabetic diet. I have ordered a specialty bed due to his body habitus. - Time Time Spent with patient: 35 or more minutes Medications reviewed and adjusted accordingly: Yes Anticipated discharge: Home - Inpatient Certification Based on my medical assessment, after consideration of the patient's comorbidities, presenting symptoms, or acuity I expect that the services needed warrant INPATIENT care.: Yes I certify that my determination is in accordance with my understanding of Medicare's requirements for reasonable and necessary INPATIENT services [42 CFR 412.3e].: Yes Medical Necessity: Need For Continuous Telemetry Monitoring, Need for IV Antibiotics
--- NOTE | 2018-12-26 19:42 | ADVANCED CARE ---
- Diagnosis (1) Pneumonia Diagnosis Current: Yes (2) Asthma exacerbation Diagnosis Current: Yes (3) Chronic diastolic heart failure Diagnosis Current: Yes (4) CKD stage 4 due to type 2 diabetes mellitus Diagnosis Current: Yes (5) Morbid obesity with BMI of 50.0-59.9, adult Diagnosis Current: Yes (6) Diabetes mellitus type 2 in obese Diagnosis Current: Yes Attendance: The patient. Resuscitation Status: Full Code Discussion: Reviewed the healthcare proxy document. The patient was made aware of the legal progression of decision making. Because he is his children would be next in line. He does not want them to make decisions because he has not been close to them. I told him that if he does have the desire to have someone else make decisions he needs to document that. We also discussed ongoing care in the event of a catastrophic illness. He does not want any heroic prolonged measures such as tracheostomy, PEG tube or chcf placement. I explained that he could detail limits of care in the second section of the document. Care Planning Goals: Established decision-makers and limitations on aggressive care after catastrophic illness Document(s) Completed: None. Completion of healthcare proxy encouraged. Time Spent: 25
[2018-12-26] MEDS: IPRATROPIUM/ALBUTEROL 0.5-2.5 MG/3 ML AMPUL NEB SCH (21:03)
[2018-12-26] MEDS: BUDESONIDE NEB 0.5 MG/2 ML AMPUL NEB SCH (21:03)
[2018-12-26] MEDS: FAMOTIDINE 20 MG TABLET PO SCH (22:11)
[2018-12-26] MEDS: GUAIFENESIN 600 MG TABLET.SA PO SCH (22:27)
[2018-12-26] MEDS: HEPARIN SOD (PORCINE) 5,000 UNIT/ML 1 ML VIAL SUBCUT SCH (22:28)
[2018-12-26] MEDS: INSULIN LISPRO 100 UNIT/ML 3 ML VIAL SUBCUT SCH (22:29)
--- NOTE | 2018-12-26 23:20 | EKG REPORT ---
SEVERITY:- BORDERLINE ECG - SINUS RHYTHM VENTRICULAR PREMATURE COMPLEX BORDERLINE R WAVE PROGRESSION, ANTERIOR LEADS : Confirmed by: Amanda Grijalva MD 26-Dec-2018 23:19:45
[2018-12-27] MEDS: IPRATROPIUM/ALBUTEROL 0.5-2.5 MG/3 ML AMPUL NEB SCH ×4 (02:50→20:55)
[2018-12-27] MEDS: HEPARIN SOD (PORCINE) 5,000 UNIT/ML 1 ML VIAL SUBCUT SCH ×3 (05:43→21:42)
[2018-12-27 06:14] LABS: HEMATOCRIT 41.3 % (37.9-51.0); HEMOGLOBIN 13.1 g/dL (13.5-17.0); MEAN CORPUSCULAR HEMOGLOBIN 29.8 pg (27.0-33.4); MEAN CORPUSCULAR HGB CONC 31.6 g/dL (32.0-36.0); MEAN CORPUSCULAR VOLUME 94 fl (80-97); PLATELET COUNT 238 10^3/uL (150-450); RED BLOOD COUNT 4.38 10^6/uL (4.35-5.55); RED CELL DISTRIBUTION WIDTH 16.3 % (11.5-14.0); WHITE BLOOD COUNT 8.5 10^3/uL (4.0-10.5)
[2018-12-27 06:29] LABS: ANION GAP 15 (5-19); BLOOD UREA NITROGEN 33 mg/dL (7-20); CALCIUM 8.4 mg/dL (8.4-10.2); CARBON DIOXIDE 21 mmol/L (22-30); CHLORIDE 102 mmol/L (98-107); GLUCOSE 397 mg/dL (75-110); POTASSIUM 4.5 mmol/L (3.6-5.0); TRIGLYCERIDES 218 mg/dL (<150)
[2018-12-27 06:40] LABS: DIRECT LDL 146 mg/dL (<100); VLDL CHOLESTEROL 43.6 mg/dL (10-31)
[2018-12-27 07:36] LABS: ABSOLUTE LYMPHOCYTES# (MANUAL) 0.3 10^3/uL (0.5-4.7); ABSOLUTE MONOCYTES # (MANUAL) 0.1 10^3/uL (0.1-1.4); BAND NEUTROPHILS % (MANUAL) 1 % (3-5); BASOPHILS % (MANUAL) 0 % (0-2); EOSINOPHILS % (MANUAL) 1 % (0-6); LYMPHOCYTES % (MANUAL) 3 % (13-45); MONOCYTES % (MANUAL) 1 % (3-13); PLATELET COMMENT ADEQUATE; SEGMENTED NEUTROPHILS % (MAN) 94 % (42-78); TOTAL CELLS COUNTED 100
[2018-12-27] MEDS ORDERED: INSULIN REG, HUMAN 100 UNIT/ML 3 ML VIAL (PYX) SUBCUT SCH (08:00)
[2018-12-27] MEDS ORDERED: RINGERS SOLUTION,LACTATED 1,000 ML IV PRN (08:04)
[2018-12-27] MEDS: INSULIN LISPRO 100 UNIT/ML 3 ML VIAL SUBCUT SCH (08:13)
[2018-12-27] MEDS: BUDESONIDE NEB 0.5 MG/2 ML AMPUL NEB SCH ×2 (08:33→20:55)
[2018-12-27] MEDS ORDERED: INSULIN LISPRO 100 UNIT/ML 3 ML VIAL SUBCUT ONE (08:45)
--- NOTE | 2018-12-27 09:33 | PDOC PROGRESS REPORT ---
Subjective Progress Note for:: 12/27/18 Subjective:: Patient is sitting on the edge of the bed. He is just finishing a nebulizer treatment. He still has a coarse cough. He states that his breathing is better than yesterday. Reason For Visit: PNEUMONIA Physical Exam Vital Signs: Temp Pulse Resp BP Pulse Ox 97.3 F 85 12 152/83 H 95 12/27/18 03:20 12/27/18 03:29 12/27/18 03:29 12/27/18 03:20 12/27/18 03:29 Intake & Output 12/26/18 12/27/18 12/28/18 06:59 06:59 06:59 Intake Total 550 Output Total 0 Balance 550 Weight 146.9 kg General appearance: PRESENT: no acute distress, morbidly obese, well-developed Head exam: PRESENT: atraumatic, normocephalic Respiratory exam: PRESENT: rhonchi - Very congested cough, symmetrical, wheezes - Sporadic wheeze. ABSENT: rales Cardiovascular exam: PRESENT: RRR, +S1, +S2 GI/Abdominal exam: PRESENT: distended - Pendulous abdomen, normal bowel sounds, soft. ABSENT: tenderness Musculoskeletal exam: PRESENT: ambulatory Neurological exam: PRESENT: alert, awake, oriented to person, oriented to place, oriented to time, oriented to situation Psychiatric exam: PRESENT: appropriate affect. ABSENT: agitated, anxious Focused psych exam: ABSENT: delusional Results Laboratory Results: 12/27/18 04:54 12/27/18 04:54 12/26/18 12/26/18 12/26/18 14:19 14:19 18:44 WBC 6.7 RBC 4.43 Hgb 13.2 L Hct 41.3 MCV 93 MCH 29.7 MCHC 31.9 L RDW 15.5 H Plt Count 257 Seg Neutrophils % 57.2 Sodium 140.0 Potassium 3.7 Chloride 105 Carbon Dioxide 23 Anion Gap 12 BUN 29 H Creatinine 3.85 H Est GFR ( Amer) 19 L Glucose 209 H Lactic Acid 2.2 H Calcium 8.4 Magnesium 2.0 Total Bilirubin 0.4 AST 22 Alkaline Phosphatase 88 Total Protein 7.2 Albumin 3.6 Triglycerides Cholesterol LDL Cholesterol Direct VLDL Cholesterol HDL Cholesterol 12/26/18 12/27/18 12/27/18 22:56 04:54 04:54 WBC 8.5 RBC 4.38 Hgb 13.1 L Hct 41.3 MCV 94 MCH 29.8 MCHC 31.6 L RDW 16.3 H Plt Count 238 Seg Neutrophils % Not Reportable Sodium 138.4 Potassium 4.5 Chloride 102 Carbon Dioxide 21 L Anion Gap 15 BUN 33 H Creatinine 4.17 H Est GFR ( Amer) 18 L Glucose 397 H Lactic Acid 2.6 H Calcium 8.4 Magnesium 2.6 H Total Bilirubin AST Alkaline Phosphatase Total Protein Albumin Triglycerides 218 H Cholesterol 193.40 LDL Cholesterol Direct 146 H VLDL Cholesterol 43.6 H HDL Cholesterol 24 L 12/26/18 12/26/18 12/26/18 14:19 14:19 18:03 Creatine Kinase 179 H CK-MB (CK-2) 2.27 Troponin I 0.033 NT-Pro-B Natriuret Pep 907 H Impressions: Chest X-Ray 12/26/18 13:39 IMPRESSION: Ill-defined retrocardiac opacity suspicious for pneumonia. Enlarged cardiac silhouette with central vascular congestion. Assessment and Plan - Diagnosis (1) Pneumonia Qualifiers: Pneumonia type: due to unspecified organism Laterality: left Lung location: lower lobe of lung Qualified Code(s): J18.1 - Lobar pneumonia, unspecified organism Is this a current diagnosis for this admission?: Yes (2) Asthma exacerbation Qualifiers: Asthma severity: mild Asthma persistence: intermittent Qualified Code(s): J45.21 - Mild intermittent asthma with (acute) exacerbation Is this a current diagnosis for this admission?: Yes (3) Chronic diastolic heart failure Is this a current diagnosis for this admission?: Yes (4) CKD stage 4 due to type 2 diabetes mellitus Is this a current diagnosis for this admission?: Yes (5) Morbid obesity with BMI of 50.0-59.9, adult Is this a current diagnosis for this admission?: Yes (6) Diabetes mellitus type 2 in obese Is this a current diagnosis for this admission?: Yes - Plan Summary Summary: 12/26/2018- pneumonia-left retrocardiac infiltrate. Difficult to see due to cardiomegaly. Rocephin and azithromycin started. He is not a smoker and so possibly an atypical bacteria versus a pneumococcus. Clearly community-acquired. Exacerbation of asthma-the patient was never a smoker. He has a congested cough. He will receive scheduled DuoNeb's with the addition of budesonide and as needed Xopenex will be available. Oxygen supplementation as required. He will also be on prednisone. Diabetes mellitus type 2 in obese-he takes 90 units of regular insulin twice daily. He does use the U500 concentration. We will provide regular insulin in the normal concentration. In addition he will be on a Humalog sliding scale as well as diabetic diet. Chronic kidney failure-the patient has diabetes and is not on an NG of tension receptor calin or TOI inhibitor. I will start low-dose lisinopril at 2.5 mg. In addition I will start furosemide 20 mg daily. Chronic diastolic heart failure-patient had an echo from several years ago that revealed grade 1/4 diastolic failure with normal ejection fraction. I will repeat an echocardiogram as this may help determine the ideal medication regimen for the patient. We will currently hold on beta-calin due to the underlying respiratory disease. Morbid obesity-the patient's BMI is 51.6. He states that he has already lost over 100 pounds. We will continue a cardiac/diabetic diet. I have ordered a specialty bed due to his body habitus. 12/27/2018 Pneumonia-the patient will continue on antibiotics when blood culture was positive earlier today. It is unclear if this is a contaminant or not. Exacerbation of asthma-although the patient has never smoked he was in the [facility] and in cramped quarters with many smokers. He also worked with a specialist. I told him that is likely combination of COPD and asthma. Continue aggressive therapy with nebulizers and steroids. Diabetes mellitus type 2-I am going to add NPH insulin to the Humulin R that the patient is taking. This will be a lot more affordable than long-acting insulins. We will continue to monitor the Accu-Cheks and adjust medication ac cordingly. Chronic kidney failure-I have ordered IV fluid. The patient had a slightly elevated lactic acid. I explained to the patient that we will give him fluid and will likely need to use diuretics afterward to ensure he does not have an exacerbation of any heart failure. The patient has a very large cardiac silhouette. His last echocardiogram showed diastolic failure. I have ordered an echocardiogram to assess for systolic failure as well. - Time Time Spent with patient: 15-24 minutes Medications reviewed and adjusted accordingly: Yes
[2018-12-27] MEDS: PREDNISONE 20 MG TABLET PO SCH ×2 (10:57→17:11)
[2018-12-27] MEDS: GUAIFENESIN 600 MG TABLET.SA PO SCH ×2 (10:57→21:42)
[2018-12-27] MEDS: FUROSEMIDE 20 MG TABLET PO SCH (10:57)
[2018-12-27] MEDS: LISINOPRIL 5 MG TABLET PO SCH (10:57)
[2018-12-27] MEDS: FAMOTIDINE 20 MG TABLET PO SCH ×2 (10:58→21:43)
[2018-12-27] MEDS ORDERED: INSULIN LISPRO 100 UNIT/ML 3 ML VIAL SUBCUT SCH ×2 (11:00)
[2018-12-27] MEDS: INSULIN REG, HUMAN 100 UNIT/ML 3 ML VIAL (PYX) SUBCUT SCH ×4 (12:48→21:41)
[2018-12-27] MEDS: CEFTRIAXONE 1 GM/D5W RTU 1 GM/50 ML RTUPB IV SCH (17:12)
[2018-12-27] MEDS: INSULIN NPH (ISOPHANE), HUMAN 100 UNIT/ML 3 ML SUBCUT SCH (17:13)
[2018-12-27] MEDS: AZITHROMYCIN 500 MG in DEXTROSE 5%-WATER 250 ML IV SCH (18:08)
[2018-12-27] MEDS: NORMAL SALINE 1000 ML 1,000 ML IV PRN (23:35)
[2018-12-28] MEDS: IPRATROPIUM/ALBUTEROL 0.5-2.5 MG/3 ML AMPUL NEB SCH ×4 (02:08→19:37)
[2018-12-28 05:59] LABS: HEMATOCRIT 38.3 % (37.9-51.0); HEMOGLOBIN 12.3 g/dL (13.5-17.0); MEAN CORPUSCULAR HEMOGLOBIN 29.8 pg (27.0-33.4); MEAN CORPUSCULAR VOLUME 93 fl (80-97); PLATELET COUNT 263 10^3/uL (150-450); RED BLOOD COUNT 4.12 10^6/uL (4.35-5.55); RED CELL DISTRIBUTION WIDTH 15.4 % (11.5-14.0); WHITE BLOOD COUNT 16.6 10^3/uL (4.0-10.5)
[2018-12-28 06:23] LABS: ANION GAP 14 (5-19); BLOOD UREA NITROGEN 44 mg/dL (7-20); CALCIUM 8.5 mg/dL (8.4-10.2); CARBON DIOXIDE 20 mmol/L (22-30); CHLORIDE 106 mmol/L (98-107); GLUCOSE 220 mg/dL (75-110); POTASSIUM 4.5 mmol/L (3.6-5.0)
[2018-12-28] MEDS: HEPARIN SOD (PORCINE) 5,000 UNIT/ML 1 ML VIAL SUBCUT SCH ×3 (06:40→21:51)
[2018-12-28 07:07] LABS: ABSOLUTE LYMPHOCYTES# (MANUAL) 0.7 10^3/uL (0.5-4.7); ANISOCYTOSIS SLIGHT; BAND NEUTROPHILS % (MANUAL) 2 % (3-5); BASOPHILS % (MANUAL) 0 % (0-2); EOSINOPHILS % (MANUAL) 0 % (0-6); LYMPHOCYTES % (MANUAL) 4 % (13-45); MONOCYTES % (MANUAL) 0 % (3-13); SEGMENTED NEUTROPHILS % (MAN) 94 % (42-78); TOTAL CELLS COUNTED 100
[2018-12-28 07:08] LABS: PLATELET COMMENT ADEQUATE
[2018-12-28] MEDS: INSULIN NPH (ISOPHANE), HUMAN 100 UNIT/ML 3 ML SUBCUT SCH ×2 (08:18→18:26)
[2018-12-28] MEDS: INSULIN REG, HUMAN 100 UNIT/ML 3 ML VIAL (PYX) SUBCUT SCH ×6 (08:18→21:52)
[2018-12-28] MEDS: BUDESONIDE NEB 0.5 MG/2 ML AMPUL NEB SCH ×2 (09:03→19:37)
[2018-12-28] MEDS: LISINOPRIL 5 MG TABLET PO SCH (09:47)
[2018-12-28] MEDS: NORMAL SALINE 1000 ML 1,000 ML IV PRN (09:47)
[2018-12-28] MEDS: PREDNISONE 20 MG TABLET PO SCH ×2 (09:47→18:29)
[2018-12-28] MEDS: FUROSEMIDE 20 MG TABLET PO SCH (09:47)
[2018-12-28] MEDS: GUAIFENESIN 600 MG TABLET.SA PO SCH ×2 (09:47→21:51)
[2018-12-28] MEDS: FAMOTIDINE 20 MG TABLET PO SCH ×2 (09:47→21:51)
--- NOTE | 2018-12-28 10:42 | PDOC PROGRESS REPORT ---
Subjective Progress Note for:: 12/28/18 Subjective:: The patient is laying in bed. He has an audible wheeze intermittently. He appears comfortable. He is on nasal cannula. Reason For Visit: PNEUMONIA Physical Exam Vital Signs: Temp Pulse Resp BP Pulse Ox 97.4 F 101 H 20 162/83 H 93 12/28/18 07:59 12/28/18 07:59 12/28/18 07:59 12/28/18 07:59 12/28/18 07:59 Intake & Output 12/27/18 12/28/18 12/29/18 06:59 06:59 06:59 Intake Total 550 3802 1000 Output Total 0 1700 Balance 550 2102 1000 Weight 146.9 kg 152.7 kg General appearance: PRESENT: no acute distress, morbidly obese, well-developed Head exam: PRESENT: atraumatic, normocephalic Respiratory exam: PRESENT: rales - Bases, symmetrical, tachypnea - Mild, wheezes - Sporadic that cleared with deep breathing. ABSENT: accessory muscle use, rhonchi Cardiovascular exam: PRESENT: RRR, +S1, +S2, systolic murmur - 2/6 GI/Abdominal exam: PRESENT: diminished bowel sounds - Due to body habitus, soft. ABSENT: distended - Pendulous abdomen, tenderness Rectal exam: PRESENT: deferred Extremities exam: PRESENT: other - Marked chronic lower extremity edema nonpitting Musculoskeletal exam: PRESENT: ambulatory. ABSENT: normal inspection, tenderness Neurological exam: PRESENT: alert, awake, oriented to person, oriented to place, oriented to time, oriented to situation, CN II-XII grossly intact Psychiatric exam: PRESENT: appropriate affect, normal mood. ABSENT: agitated, anxious Focused psych exam: ABSENT: delusional, restlessness Skin exam: PRESENT: dry, warm. ABSENT: erythema, jaundice, urticaria, vesicles Results Laboratory Results: 12/28/18 05:43 12/28/18 05:43 12/28/18 12/28/18 12/28/18 05:43 05:43 05:43 WBC 16.6 H RBC 4.12 L Hgb 12.3 L Hct 38.3 MCV 93 MCH 29.8 MCHC 32.0 RDW 15.4 H Plt Count 263 Seg Neutrophils % Not Reportable Sodium 139.8 Potassium 4.5 Chloride 106 Carbon Dioxide 20 L Anion Gap 14 BUN 44 H Creatinine 4.47 H Est GFR ( Amer) 16 L Glucose 220 H Lactic Acid 1.1 Calcium 8.5 Magnesium 2.4 H 12/26/18 12/26/18 12/26/18 14:19 14:19 18:03 Creatine Kinase 179 H CK-MB (CK-2) 2.27 Troponin I 0.033 NT-Pro-B Natriuret Pep 907 H Impressions: Chest X-Ray 12/26/18 13:39 IMPRESSION: Ill-defined retrocardiac opacity suspicious for pneumonia. Enlarged cardiac silhouette with central vascular congestion. Assessment and Plan - Diagnosis (1) Pneumonia Qualifiers: Pneumonia type: due to unspecified organism Laterality: left Lung location: lower lobe of lung Qualified Code(s): J18.1 - Lobar pneumonia, unspecified organism Is this a current diagnosis for this admission?: Yes (2) Asthma exacerbation Qualifiers: Asthma severity: mild Asthma persistence: intermittent Qualified Code(s): J45.21 - Mild intermittent asthma with (acute) exacerbation Is this a current diagnosis for this admission?: Yes (3) Chronic diastolic heart failure Is this a current diagnosis for this admission?: Yes (4) CKD stage 4 due to type 2 diabetes mellitus Is this a current diagnosis for this admission?: Yes (5) Morbid obesity with BMI of 50.0-59.9, adult Is this a current diagnosis for this admission?: Yes (6) Diabetes mellitus type 2 in obese Is this a current diagnosis for this admission?: Yes (7) Leukocytosis Qualifiers: Leukocytosis type: other Qualified Code(s): D72.828 - Other elevated white blood cell count Is this a current diagnosis for this admission?: Yes - Plan Summary Summary: 12/26/2018- pneumonia-left retrocardiac infiltrate. Difficult to see due to cardiomegaly. Rocephin and azithromycin started. He is not a smoker and so possibly an atypical bacteria versus a pneumococcus. Clearly community-acquired. Exacerbation of asthma-the patient was never a smoker. He has a congested cough. He will receive scheduled DuoNeb's with the addition of budesonide and as needed Xopenex will be available. Oxygen supplementation as required. He will also be on prednisone. Diabetes mellitus type 2 in obese-he takes 90 units of regular insulin twice daily. He does use the U500 concentration. We will provide regular insulin in the normal concentration. In addition he will be on a Humalog sliding scale as well as diabetic diet. Chronic kidney failure-the patient has diabetes and is not on an NG of tension receptor calin or TOI inhibitor. I will start low-dose lisinopril at 2.5 mg. In addition I will start furosemide 20 mg daily. Chronic diastolic heart failure-patient had an echo from several years ago that revealed grade 1/4 diastolic failure with normal ejection fraction. I will repeat an echocardiogram as this may help determine the ideal medication regimen for the patient. We will currently hold on beta-calin due to the underlying respiratory disease. Morbid obesity-the patient's BMI is 51.6. He states that he has already lost over 100 pounds. We will continue a cardiac/diabetic diet. I have ordered a specialty bed due to his body habitus. 12/27/2018 Pneumonia-the patient will continue on antibiotics when blood culture was positive earlier today. It is unclear if this is a contaminant or not. Exacerbation of asthma-although the patient has never smoked he was in the [place] and in [place] quarters with many smokers. He also worked with a specialist. I told him that is likely combination of COPD and asthma. Continue aggressive therapy with nebulizers and steroids. Diabetes mellitus type 2-I am going to add NPH insulin to the Humulin R that the patient is taking. This will be a lot more affordable than long-acting insulins. We will continue to monitor the Accu-Cheks and adjust medication accordingly. Chronic kidney failure-I have ordered IV fluid. The patient had a slightly elevated lactic acid. I explained to the patient that we will give him fluid and will likely need to use diuretics afterward to ensure he does not have an exacerbation of any heart failure. The patient has a very large cardiac silhouette. His last echocardiogram showed diastolic failure. I have ordered an echocardiogram to assess for systolic failure as well. 12/28/2018- The patient has sporadic expiratory wheeze that clears with deep breathing. This could be somewhat stridorous due to his body habitus. His breathing is slightly tachypneic. There are basilar rales. This is likely a combination of heart failure and morbid obesity hypoventilation. Echocardiogram is pending to assess chronic diastolic function and possible new systolic dysfunction. Pneumonia-continue antibiotic therapy. I believe his leukocytosis is related to his prednisone therapy. Gram-positive cocci bacteremia-continue current antibiotics pending identification and sensitivities. Chronic kidney failure-the patient received 2 L of IV fluid. Creatinine is still increasing. His admission creatinine may have been diluted due to hypervolemia. I will have nephrology see the patient tomorrow and monitor his numbers. I will give him a single dose of IV Lasix today in addition to his oral dose and no further fluids at this time. Diabetes mellitus type 2-continue Accu-Cheks. I have added some NPH insulin and decreased his Humulin R slightly. He remains on sliding scale. Adjust medications based on sliding scale requirements. - Time Time Spent with patient: 15-24 minutes Medications reviewed and adjusted accordingly: Yes Anticipated discharge: Home with Homehealth
[2018-12-28] MEDS: FUROSEMIDE INJ/PF 20 MG/2 ML SDV IV SCH (11:36)
[2018-12-28] MEDS: CEFTRIAXONE 1 GM/D5W RTU 1 GM/50 ML RTUPB IV SCH (18:29)
[2018-12-28] MEDS: AZITHROMYCIN 500 MG in DEXTROSE 5%-WATER 250 ML IV SCH (21:53)
[2018-12-29] MEDS: IPRATROPIUM/ALBUTEROL 0.5-2.5 MG/3 ML AMPUL NEB SCH ×4 (02:29→19:43)
[2018-12-29 05:45] LABS: ALBUMIN 3.5 g/dL (3.5-5.0); ANION GAP 10 (5-19); BLOOD UREA NITROGEN 51 mg/dL (7-20); CALCIUM 8.1 mg/dL (8.4-10.2); CARBON DIOXIDE 23 mmol/L (22-30); CHLORIDE 108 mmol/L (98-107); GLUCOSE 274 mg/dL (75-110); PHOSPHORUS 6.6 mg/dL (2.5-4.5); POTASSIUM 4.4 mmol/L (3.6-5.0)
[2018-12-29] MEDS: HEPARIN SOD (PORCINE) 5,000 UNIT/ML 1 ML VIAL SUBCUT SCH ×2 (06:12→15:54)
[2018-12-29] MEDS ORDERED: INSULIN REG, HUMAN 100 UNIT/ML 3 ML VIAL (PYX) SUBCUT SCH (08:00)
[2018-12-29] MEDS: BUDESONIDE NEB 0.5 MG/2 ML AMPUL NEB SCH ×2 (08:10→19:43)
[2018-12-29 08:32] LABS: ABSOLUTE BASOPHILS # (AUTO) 0.1 10^3/uL (0.0-0.2); ABSOLUTE LYMPHOCYTES (AUTO) 0.7 10^3/uL (0.5-4.7); ABSOLUTE MONOCYTES (AUTO) 0.4 10^3/uL (0.1-1.4); ABSOLUTE NEUT (AUTO) 12.8 10^3/uL (1.7-8.2); BASOPHILS % (AUTO) 0.4 % (0-2); EOSINOPHILS % (AUTO) 0.1 % (0-6); HEMATOCRIT 40.1 % (37.9-51.0); HEMOGLOBIN 12.6 g/dL (13.5-17.0); LYMPHOCYTES % (AUTO) 5.3 % (13-45); MEAN CORPUSCULAR HEMOGLOBIN 29.8 pg (27.0-33.4); MEAN CORPUSCULAR HGB CONC 31.5 g/dL (32.0-36.0); MEAN CORPUSCULAR VOLUME 95 fl (80-97); MONOCYTES % (AUTO) 2.7 % (3-13); PLATELET COUNT 273 10^3/uL (150-450); RED BLOOD COUNT 4.23 10^6/uL (4.35-5.55); RED CELL DISTRIBUTION WIDTH 16.5 % (11.5-14.0); SEGMENTED NEUTROPHILS % (AUTO) 91.5 % (42-78); TOTAL CELLS COUNTED % (AUTO) 100 %
[2018-12-29] MEDS: INSULIN REG, HUMAN 100 UNIT/ML 3 ML VIAL (PYX) SUBCUT SCH ×3 (08:34→19:10)
[2018-12-29] MEDS: INSULIN NPH (ISOPHANE), HUMAN 100 UNIT/ML 3 ML SUBCUT SCH ×2 (08:34→19:09)
[2018-12-29] MEDS: PREDNISONE 20 MG TABLET PO SCH ×2 (10:32→19:08)
[2018-12-29] MEDS: LISINOPRIL 5 MG TABLET PO SCH (10:32)
[2018-12-29] MEDS: FUROSEMIDE INJ/PF 20 MG/2 ML SDV IV SCH (10:33)
[2018-12-29] MEDS: GUAIFENESIN 600 MG TABLET.SA PO SCH (10:33)
[2018-12-29] MEDS: FAMOTIDINE 20 MG TABLET PO SCH (12:47)
[2018-12-29] MEDS ORDERED: FUROSEMIDE INJ/PF 20 MG/2 ML SDV IV ONE (16:00)
--- NOTE | 2018-12-29 16:05 | PDOC PROGRESS REPORT ---
Subjective Progress Note for:: 12/29/18 Subjective:: The patient just finished getting his echocardiogram. He is laying rather flat in the bed. He is coughing. He states that when he sits up his cough is improved. Overall he states that he is feeling better day by day. Await echocardiogram results. Reason For Visit: PNEUMONIA Physical Exam Vital Signs: Temp Pulse Resp BP Pulse Ox 97.4 F 79 16 171/84 H 90 L 12/29/18 11:32 12/29/18 13:45 12/29/18 13:45 12/29/18 11:32 12/29/18 13:45 Intake & Output 12/28/18 12/29/18 12/30/18 06:59 06:59 06:59 Intake Total 3802 2766 Output Total 1700 1742 Balance 2102 1024 Weight 152.7 kg 151.3 kg General appearance: PRESENT: cooperative, morbidly obese, well-developed Head exam: PRESENT: atraumatic, normocephalic Mouth exam: PRESENT: dry mucosa, tongue midline Respiratory exam: PRESENT: decreased breath sounds - At both bases, rhonchi - Coarse breath sounds bilaterally, symmetrical. ABSENT: rales, tachypnea, wheezes Cardiovascular exam: PRESENT: RRR, +S1, +S2, systolic murmur - 2/6 GI/Abdominal exam: PRESENT: normal bowel sounds, soft, other - Protuberant abdomen. ABSENT: tenderness Extremities exam: PRESENT: other - Marked chronic lower extremity nonpitting edema to the ankles. Minimal pitting edema on the feet. Musculoskeletal exam: PRESENT: ambulatory, tenderness - Slight tenderness with palpation to the lower legs, other - Anatomy consistent with his morbid obesity Neurological exam: PRESENT: alert, awake, oriented to person, oriented to place, oriented to time, oriented to situation, CN II-XII grossly intact - With some hearing loss Psychiatric exam: PRESENT: appropriate affect. ABSENT: agitated, anxious Focused psych exam: ABSENT: delusional, restlessness Skin exam: PRESENT: other - Increased pigmentation especially on the right leg consistent with chronic venous insufficiency Results Laboratory Results: 12/29/18 08:05 12/29/18 04:54 12/29/18 12/29/18 12/29/18 04:54 04:54 08:05 WBC Cancelled 14.0 H RBC Cancelled 4.23 L Hgb Cancelled 12.6 L Hct Cancelled 40.1 MCV Cancelled 95 MCH Cancelled 29.8 MCHC Cancelled 31.5 L RDW Cancelled 16.5 H Plt Count Cancelled 273 Seg Neutrophils % Cancelled 91.5 H Sodium 141.1 Potassium 4.4 Chloride 108 H Carbon Dioxide 23 Anion Gap 10 BUN 51 H Creatinine 4.65 H Est GFR ( Amer) 16 L Glucose 274 H Calcium 8.1 L Phosphorus 6.6 H Magnesium 2.3 Albumin 3.5 12/26/18 12/26/18 12/26/18 14:19 14:19 18:03 Creatine Kinase 179 H CK-MB (CK-2) 2.27 Troponin I 0.033 NT-Pro-B Natriuret Pep 907 H Impressions: Chest X-Ray 12/26/18 13:39 IMPRESSION: Ill-defined retrocardiac opacity suspicious for pneumonia. Enlarged cardiac silhouette with central vascular congestion. Assessment and Plan - Diagnosis (1) Pneumonia Qualifiers: Pneumonia type: due to unspecified organism Laterality: left Lung location: lower lobe of lung Qualified Code(s): J18.1 - Lobar pneumonia, unspecified organism Is this a current diagnosis for this admission?: Yes (2) Asthma exacerbation Qualifiers: Asthma severity: mild Asthma persistence: intermittent Qualified Code(s): J45.21 - Mild intermittent asthma with (acute) exacerbation Is this a current diagnosis for this admission?: Yes (3) Chronic diastolic heart failure Is this a current diagnosis for this admission?: Yes (4) CKD stage 4 due to type 2 diabetes mellitus Is this a current diagnosis for this admission?: Yes (5) Morbid obesity with BMI of 50.0-59.9, adult Is this a current diagnosis for this admission?: Yes (6) Diabetes mellitus type 2 in obese Is this a current diagnosis for this admission?: Yes (7) Leukocytosis Qualifiers: Leukocytosis type: other Qualified Code(s): D72.828 - Other elevated white blood cell count Is this a current diagnosis for this admission?: Yes - Plan Summary Summary: 12/26/2018- pneumonia-left retrocardiac infiltrate. Difficult to see due to cardiomegaly. Rocephin and azithromycin started. He is not a smoker and so possibly an atypical bacteria versus a pneumococcus. Clearly community-acquired. Exacerbation of asthma-the patient was never a smoker. He has a congested cough. He will receive scheduled DuoNeb's with the addition of budesonide and as needed Xopenex will be available. Oxygen supplementation as required. He will also be on prednisone. Diabetes mellitus type 2 in obese-he takes 90 units of regular insulin twice daily. He does use the U500 concentration. We will provide regular insulin in the normal concentration. In addition he will be on a Humalog sliding scale as well as diabetic diet. Chronic kidney failure-the patient has diabetes and is not on an NG of tension receptor calin or TOI inhibitor. I will start low-dose lisinopril at 2.5 mg. In addition I will start furosemide 20 mg daily. Chronic diastolic heart failure-patient had an echo from several years ago that revealed grade 1/4 diastolic failure with normal ejection fraction. I will repeat an echocardiogram as this may help determine the ideal medication regimen for the patient. We will currently hold on beta-calin due to the underlying respiratory disease. Morbid obesity-the patient's BMI is 51.6. He states that he has already lost over 100 pounds. We will continue a cardiac/diabetic diet. I have ordered a specialty bed due to his body habitus. 12/27/2018 Pneumonia-the patient will continue on antibiotics when blood culture was positive earlier today. It is unclear if this is a contaminant or not. Exacerbation of asthma-although the patient has never smoked he was in the [place] and in cramped quarters with many smokers. He also worked with a specialist. I told him that is likely combination of COPD and asthma. Continue aggressive therapy with nebulizers and steroids. Diabetes mellitus type 2-I am going to add NPH insulin to the Humulin R that the patient is taking. This will be a lot more affordable than long-acting insulins. We will continue to monitor the Accu-Cheks and adjust medication accordingly. Chronic kidney failure-I have ordered IV fluid. The patient had a slightly elevated lactic acid. I explained to the patient that we will give him fluid and will likely need to use diuretics afterward to ensure he does not have an exacerbation of any heart failure. The patient has a very large cardiac silhouette. His last echocardiogram showed diastolic failure. I have ordered an echocardiogram to assess for systolic failure as well. 12/28/2018- The patient has sporadic expiratory wheeze that clears with deep breathing. This could be somewhat stridorous due to his body habitus. His breathing is slightly tachypneic. There are basilar rales. This is likely a combination of heart failure and morbid obesity hypoventilation. Echocardiogram is pending to assess chronic diastolic function and possible new systolic dysfunction. Pneumonia-continue antibiotic therapy. I believe his leukocytosis is related to his prednisone therapy. Gram-positive cocci bacteremia-continue current antibiotics pending identification and sensitivities. Chronic kidney failure-the patient received 2 L of IV fluid. Creatinine is still increasing. His admission creatinine may have been diluted due to hypervolemia. I will have nephrology see the patient tomorrow and monitor his numbers. I will give him a single dose of IV Lasix today in addition to his oral dose and no further fluids at this time. Diabetes mellitus type 2-continue Accu-Cheks. I have added some NPH insulin and decreased his Humulin R slightly. He remains on sliding scale. Adjust medications based on sliding scale requirements. 12/29/2018- Congested breath sounds today. I will give increase Lasix. He has had a positive fluid balance but not overwhelming. Unfortunately his creatinine continues to climb. I will asked nephrology to see the patient tomorrow. I have ordered an x-ray and reordered blood work. We will try additional doses of furosemide at this time. He will continue his antibiotics. The echocardiogram was just performed. I will look for the results. Pneumonia-continue antibiotics. We will decrease the steroids and his leukocytosis should improve. Diabetes mellitus-with decreasing the prednisone his sugars should improve. I did increase the regular insulin to 65 units. (He takes 90 at home twice a day). I have not changed the NPH insulin. Continue to monitor fingersticks. - Time Time Spent with patient: 15-24 minutes Medications reviewed and adjusted accordingly: Yes Anticipated discharge: Home with Homehealth
[2018-12-29] MEDS: CEFTRIAXONE 1 GM/D5W RTU 1 GM/50 ML RTUPB IV SCH (19:11)
--- NOTE | 2018-12-29 19:20 | RADIOLOGY REPORT (SQ) ---
EXAM DESCRIPTION: CHEST SINGLE VIEW COMPLETED DATE/TIME: 12/29/2018 5:06 pm REASON FOR STUDY: Resp Failure COMPARISON: 12/26/2018 NUMBER OF VIEWS: One view. TECHNIQUE: Single frontal radiographic view of the chest acquired. LIMITATIONS: None. FINDINGS: LUNGS AND PLEURA: No opacities, masses or pneumothorax. No pleural effusion. MEDIASTINUM AND HILAR STRUCTURES: No masses or contour abnormality. HEART AND VASCULATURE: Cardiac enlargement. Vascular congestion. BONES: No acute findings. HARDWARE: None in the chest. OTHER: No other significant finding. IMPRESSION: CARDIAC ENLARGEMENT. VASCULAR CONGESTION. Slightly improved. TECHNICAL DOCUMENTATION: JOB ID: [id number] [email or web address]- All Rights Reserved Reading location - IP/workstation name: [email or web address]
--- NOTE | 2018-12-29 20:14 | XCELERA REPORT ---
[address] [address] Transthoracic Echocardiogram Report Name: SANTA SANTANA Age: 58 yrs Gender: Male : 1960 Patient Status: Inpatient Patient Location: [address] [place] [address] Study Date: 12/29/2018 03:11 PM Height: 66 in Weight: 323 lb BSA: 2.5 m2 Procedure: A two-dimensional transthoracic echocardiogram with color flow and Doppler was performed. Study Quality: Fair. Reason For Study: chf History: CHF. Ordering Physician: ROSAURA BULLOCK Performed By: Laura Moran Interpretation Summary The left ventricle is normal in size. There is mild concentric left ventricular hypertrophy. LV EF is 65% Left ventricular systolic function is normal. Doppler measurements suggest impaired left ventricular relaxation, which is associated with grade I/IV or mild diastolic dysfunction The left ventricular wall motion is normal. There is no thrombus. No ASD , VSD ,or PFO seen. The right ventricle is not well visualized secondary to technical limitations The right atrium is normal. The left atrial size is normal. There is no evidence of mitral valve prolapse. There is no vegetation seen on the mitral valve. There is no mitral valve stenosis. There is a trace amount of mitral regurgitation There is no aortic valvular vegetation. There is mild aortic stenosis There is a peak gradient of 30 mm of Hg , and mean gradient of 17 mm of Hg. There is no LVOT obstruction. No aortic regurgitation is present. There is no tricuspid stenosis. There is a trace amount of tricuspid regurgitation Tricuspid regurgitation jet envelope not well defined to measure RV systolic pressure accurately. There is no pulmonic valvular stenosis. There is no pulmonic valvular regurgitation. The aortic root is normal size. The inferior vena cava appeared dilated and decreased < 50% with respiration (RAP 15-20 mmHg) There is no pericardial effusion. MMode/2D Measurements & Calculations RVDd: 3.6 cm LVIDd: 5.3 cm FS: 35.8 % Ao root diam: 3.2 cm IVSd: 1.3 cm LVIDs: 3.4 cm EDV(Teich): 135.3 ml Ao root area: 8.0 cm2 LVPWd: 1.3 cm ESV(Teich): 47.4 ml LA dimension: 3.9 cm EF(Teich): 65.0 % LVOT diam: 2.2 cm LVOT area: 3.8 cm2 Doppler Measurements & Calculations MV E max deepak: MV P1/2t max deepak: Ao V2 max: LV V1 max P.9 cm/sec 123.4 cm/sec 273.9 cm/sec 6.4 mmHg MV A max deepak: MV P1/2t: 62.4 msec Ao max PG: LV V1 mean P.2 cm/sec MVA(P1/2t): 3.5 cm2 30.0 mmHg 3.0 mmHg MV E/A: 0.90 MV dec slope: Ao V2 mean: LV V1 max: 197.0 cm/sec 126.5 cm/sec 579.4 cm/sec2 Ao mean PG: LV V1 mean: MV dec time: 0.20 sec 17.0 mmHg 85.0 cm/sec Ao V2 VTI: 52.5 cm LV V1 VTI: JIMY(I,D): 1.8 cm2 25.2 cm JIMY(V,D): 1.8 cm2 SV(LVOT): 95.8 ml PA V2 max: MV P1/2t-pr_phl: 118.5 cm/sec 62.4 msec PA max P.6 mmHg Left Ventricle The left ventricle is normal in size. There is mild concentric left ventricular hypertrophy. LV EF is 65%. Left ventricular systolic function is normal. Doppler measurements suggest impaired left ventricular relaxation, which is associated with grade I/IV or mild diastolic dysfunction. The left ventricular wall motion is normal. There is no thrombus. No ASD , VSD ,or PFO seen. Right Ventricle The right ventricle is not well visualized secondary to technical limitations. The right ventricle is grossly normal size. Atria The right atrium is normal. The left atrial size is normal. Mitral Valve There is no evidence of mitral valve prolapse. There is no vegetation seen on the mitral valve. There is no mitral valve stenosis. There is a trace amount of mitral regurgitation. Aortic Valve There is no aortic valvular vegetation. There is mild aortic stenosis. There is a peak gradient of 30 mm of Hg , and mean gradient of 17 mm of Hg. There is no LVOT obstruction. No aortic regurgitation is present. Tricuspid Valve There is no tricuspid stenosis. There is a trace amount of tricuspid regurgitation. Tricuspid regurgitation jet envelope not well defined to measure RV systolic pressure accurately. Pulmonic Valve There is no pulmonic valvular stenosis. There is no pulmonic valvular regurgitation. Great Vessels The aortic root is normal size. The inferior vena cava appeared dilated and decreased < 50% with respiration (RAP 15-20 mmHg). Effusions There is no pericardial effusion. : ROSAURA BULLOCK Lakshmi
[2018-12-30] MEDS: INSULIN REG, HUMAN 100 UNIT/ML 3 ML VIAL (PYX) SUBCUT SCH ×8 (00:36→21:50)
[2018-12-30] MEDS: HEPARIN SOD (PORCINE) 5,000 UNIT/ML 1 ML VIAL SUBCUT SCH ×4 (00:37→21:43)
[2018-12-30] MEDS: FUROSEMIDE INJ/PF 20 MG/2 ML SDV IV SCH ×2 (00:38→09:23)
[2018-12-30] MEDS: GUAIFENESIN 600 MG TABLET.SA PO SCH ×3 (00:40→21:43)
[2018-12-30] MEDS: FAMOTIDINE 20 MG TABLET PO SCH ×3 (00:40→21:42)
[2018-12-30] MEDS: AZITHROMYCIN 500 MG in DEXTROSE 5%-WATER 250 ML IV SCH ×2 (00:42→17:46)
[2018-12-30] MEDS: IPRATROPIUM/ALBUTEROL 0.5-2.5 MG/3 ML AMPUL NEB SCH ×4 (02:37→21:00)
[2018-12-30 04:51] LABS: HEMATOCRIT 38.4 % (37.9-51.0); HEMOGLOBIN 12.2 g/dL (13.5-17.0); MEAN CORPUSCULAR HEMOGLOBIN 29.9 pg (27.0-33.4); MEAN CORPUSCULAR HGB CONC 31.9 g/dL (32.0-36.0); MEAN CORPUSCULAR VOLUME 94 fl (80-97); PLATELET COUNT 261 10^3/uL (150-450); RED CELL DISTRIBUTION WIDTH 15.6 % (11.5-14.0); WHITE BLOOD COUNT 13.6 10^3/uL (4.0-10.5)
[2018-12-30 05:10] LABS: ALBUMIN 3.7 g/dL (3.5-5.0); ANION GAP 13 (5-19); BLOOD UREA NITROGEN 59 mg/dL (7-20); CALCIUM 8.6 mg/dL (8.4-10.2); CARBON DIOXIDE 20 mmol/L (22-30); CHLORIDE 110 mmol/L (98-107); GLUCOSE 98 mg/dL (75-110); PHOSPHORUS 5.6 mg/dL (2.5-4.5); POTASSIUM 4.4 mmol/L (3.6-5.0)
[2018-12-30 05:26] LABS: ABSOLUTE MONOCYTES # (MANUAL) 0.5 10^3/uL (0.1-1.4); ANISOCYTOSIS SLIGHT; BAND NEUTROPHILS % (MANUAL) 2 % (3-5); BASOPHILS % (MANUAL) 0 % (0-2); EOSINOPHILS % (MANUAL) 0 % (0-6); LYMPHOCYTES % (MANUAL) 7 % (13-45); MONOCYTES % (MANUAL) 4 % (3-13); PLATELET COMMENT ADEQUATE; SEGMENTED NEUTROPHILS % (MAN) 87 % (42-78); TOTAL CELLS COUNTED 100
[2018-12-30] MEDS: BUDESONIDE NEB 0.5 MG/2 ML AMPUL NEB SCH ×2 (07:41→21:00)
[2018-12-30] MEDS: INSULIN NPH (ISOPHANE), HUMAN 100 UNIT/ML 3 ML SUBCUT SCH ×2 (08:50→16:35)
[2018-12-30] MEDS: LISINOPRIL 5 MG TABLET PO SCH (09:23)
[2018-12-30] MEDS: PREDNISONE 20 MG TABLET PO SCH ×2 (09:23→17:03)
[2018-12-30] MEDS: CEFTRIAXONE 1 GM/D5W RTU 1 GM/50 ML RTUPB IV SCH (17:09)
--- NOTE | 2018-12-30 19:44 | PDOC PROGRESS REPORT ---
Subjective Progress Note for:: 12/30/18 Subjective:: The patient is a 4-year-old male with a past medical history of morbid obesity, CHF, DM, hypertension, hyperlipidemia,, hypothyroidism, CKD and depression who was admitted 12/26/2018 for left middle lobe pneumonia and acute on chronic kidney disease. The patient was seen on morning rounds. He was found resting in bed comfortably on supplemental oxygen via nasal cannula at 2 L/min. He does report continued shortness of breath with minimal activity; has been up to the restroom while on supplemental oxygen. He also complains of continued productive cough, and ge neralized fatigue. He denies fever, chills, chest pain, palpitations, orthopnea, abdominal pain, nausea vomiting and diarrhea. He does report good appetite. He has no specific questions or concerns today. No concerns per nursing. Reason For Visit: PNEUMONIA Physical Exam Vital Signs: Temp Pulse Resp BP Pulse Ox 97.6 F 97 25 H 145/74 H 93 12/30/18 16:00 12/30/18 16:00 12/30/18 16:00 12/30/18 16:00 12/30/18 16:00 Intake & Output 12/29/18 12/30/18 12/31/18 06:59 06:59 06:59 Intake Total 2766 1814 1790 Output Total 1742 2700 1350 Balance 1024 -886 440 Weight 151.3 kg 151.7 kg General appearance: PRESENT: no acute distress, cooperative, morbidly obese, well-developed, well-nourished Head exam: PRESENT: atraumatic, normocephalic Eye exam: PRESENT: conjunctiva pink, EOMI, PERRLA. ABSENT: scleral icterus Ear exam: PRESENT: normal external ear exam Mouth exam: PRESENT: moist, tongue midline Neck exam: ABSENT: carotid bruit, JVD, lymphadenopathy, thyromegaly Respiratory exam: PRESENT: prolonged expiratory phas, rhonchi, symmetrical, unlabored, other - Supplemental oxygen by nasal cannula. ABSENT: rales, wheezes Cardiovascular exam: PRESENT: RRR, +S1, +S2, systolic murmur. ABSENT: diastolic murmur, rubs Pulses: PRESENT: normal dorsalis pedis pul Vascular exam: PRESENT: normal capillary refill GI/Abdominal exam: PRESENT: normal bowel sounds, soft. ABSENT: distended, guarding, mass, organolmegaly, rebound, tenderness Rectal exam: PRESENT: deferred Extremities exam: PRESENT: full ROM, +1 edema - BLE. ABSENT: calf tenderness, clubbing, pedal edema Neurological exam: PRESENT: alert, awake, oriented to person, oriented to place, oriented to time, oriented to situation, CN II-XII grossly intact. ABSENT: motor sensory deficit Psychiatric exam: PRESENT: appropriate affect, normal mood. ABSENT: homicidal ideation, suicidal ideation Skin exam: PRESENT: dry, intact, warm, other - Chronic venous stasis changes to BLE. ABSENT: cyanosis, rash Results Laboratory Results: 12/30/18 04:34 12/30/18 04:34 12/30/18 12/30/18 12/30/18 04:34 04:34 04:34 WBC 13.6 H RBC 4.10 L Hgb 12.2 L Hct 38.4 MCV 94 MCH 29.9 MCHC 31.9 L RDW 15.6 H Plt Count 261 Seg Neutrophils % Not Reportable Sodium 143.3 Potassium 4.4 Chloride 110 H Carbon Dioxide 20 L Anion Gap 13 BUN 59 H Creatinine 4.74 H Est GFR ( Amer) 15 L Glucose 98 Calcium 8.6 Phosphorus 5.6 H Magnesium 2.3 Albumin 3.7 PTH Intact 702.8 H 12/26/18 18:44 Blood Blood Culture - Final Streptococcus Mitis Staphylococcus Hominis 12/26/18 12/26/18 12/26/18 14:19 14:19 18:03 Creatine Kinase 179 H CK-MB (CK-2) 2.27 Troponin I 0.033 NT-Pro-B Natriuret Pep 907 H Impressions: Chest X-Ray 12/29/18 00:00 IMPRESSION: CARDIAC ENLARGEMENT. VASCULAR CONGESTION. Slightly improved. Assessment and Plan - Diagnosis (1) Pneumonia Qualifiers: Pneumonia type: due to unspecified organism Laterality: left Lung location: lower lobe of lung Qualified Code(s): J18.1 - Lobar pneumonia, unspecified organism Is this a current diagnosis for this admission?: Yes Plan: Chest x-ray demonstrated a left retrocardiac infiltrate. Initial blood cultures grew strep mitis and staph hominis; both contaminants. Repeat blood cultures obtained today are pending. Sputum cultures are pending. Patient was empirically placed on IV azithromycin and Rocephin. He was supported with supplemental oxygen. Schedule and as needed nebulizer treatments. Mucinex twice daily. Pulmonary toilet. (2) Asthma exacerbation Qualifiers: Asthma severity: mild Asthma persistence: intermittent Qualified Code(s): J45.21 - Mild intermittent asthma with (acute) exacerbation Is this a current diagnosis for this admission?: Yes Plan: Improved; On exam today, he has slight rhonchi but no wheezing. Secondary to community-acquired pneumonia. In addition to the above, patient is placed on p.o. prednisone. (3) Diabetes mellitus type 2 in obese Is this a current diagnosis for this admission?: Yes Plan: A1c is 8.2% Continue NPH 10 units twice daily. Accu-Cheks before meals and at bedtime with sliding scale insulin. Consistent carb/cardiac diet. Registered dietitian and certified adapted physical educator are consulted. (4) Obesity Qualifiers: Obesity type: unspecified obesity type Obesity classification: unspecified obesity classification Serious obesity comorbidity presence: unspecified whether serious comorbidity present Qualified Code(s): E66.9 - Obesity, unspecified Is this a current diagnosis for this admission?: Yes Plan: BMI 54 Consistent carb/cardiac diet. Registered dietitian and certified adapted physical educator consulted. Lifestyle modification and dietary discretion advised. (5) CKD stage 4 due to type 2 diabetes mellitus Is this a current diagnosis for this admission?: Yes Plan: The patient was admitted with a creatinine of 3.85, and GFR of 16. Baseline creatinine appears to be 3.0-3.3. Unfortunately, his renal function has worsened despite gentle IV fluids, optimization of cardiac output, management of hypertension, and adjustment of nephrotoxic medications. We will avoid nephrotoxic medications as able. Monitor daily chemistries. Will obtain nephrology consultation; appreciate their assistance. (6) Chronic diastolic heart failure Is this a current diagnosis for this admission?: Yes Plan: Echocardiogram demonstrated mild concentric LVH, LVEF is 65%, mild diastolic dysfunction. proBNP was elevated to 907; must consider the patient's morbid obesity when int erpreting this result. Continue lisinopril 2.5 mg daily. Start metoprolol 12.5 mg twice daily. Start low dose statin. Consider daily ASA prior to d/c. Due to worsening renal status; hold IV furosemide. Will discuss w/ nephrology following consultation tomorrow. (7) Leukocytosis Qualifiers: Leukocytosis type: other Qualified Code(s): D72.828 - Other elevated white blood cell count Is this a current diagnosis for this admission?: Yes Plan: Improved; 16.6 down to 13.6. Likely multifactorial secondary to community-acquired pneumonia and steroid treatment for asthma exacerbation. Patient is afebrile and clinically improved. We will continue to monitor. - Plan Summary Summary: 12/26/2018- pneumonia-left retrocardiac infiltrate. Difficult to see due to cardiomegaly. Rocephin and azithromycin started. He is not a smoker and so possibly an atypical bacteria versus a pneumococcus. Clearly community-acquired. Exacerbation of asthma-the patient was never a smoker. He has a congested cough. He will receive scheduled DuoNeb's with the addition of budesonide and as needed Xopenex will be available. Oxygen supplementation as required. He will also be on prednisone. Diabetes mellitus type 2 in obese-he takes 90 units of regular insulin twice daily. He does use the U500 concentration. We will provide regular insulin in the normal concentration. In addition he will be on a Humalog sliding scale as well as diabetic diet. Chronic kidney failure-the patient has diabetes and is not on an NG of tension receptor calin or TOI inhibitor. I will start low-dose lisinopril at 2.5 mg. In addition I will start furosemide 20 mg daily. Chronic diastolic heart failure-patient had an echo from several years ago that revealed grade 1/4 diastolic failure with normal ejection fraction. I will repeat an echocardiogram as this may help determine the ideal medication regimen for the patient. We will currently hold on beta-calin due to the underlying respiratory disease. Morbid obesity-the patient's BMI is 51.6. He states that he has already lost over 100 pounds. We will continue a cardiac/diabetic diet. I have ordered a specialty bed due to his body habitus. 12/27/2018 Pneumonia-the patient will continue on antibiotics when blood culture was positive earlier today. It is unclear if this is a contaminant or not. Exacerbation of asthma-although the patient has never smoked he was in the [place] and in cramped quarters with many smokers. He also worked with a specialist. I told him that is likely combination of COPD and asthma. Continue aggressive therapy with nebulizers and steroids. Diabetes mellitus type 2-I am going to add NPH insulin to the Humulin R that the patient is taking. This will be a lot more affordable than long-acting insulins. We will continue to monitor the Accu-Cheks and adjust medication accordingly. Chronic kidney failure-I have ordered IV fluid. The patient had a slightly e levated lactic acid. I explained to the patient that we will give him fluid and will likely need to use diuretics afterward to ensure he does not have an exacerbation of any heart failure. The patient has a very large cardiac silhouette. His last echocardiogram showed diastolic failure. I have ordered an echocardiogram to assess for systolic failure as well. 12/28/2018- The patient has sporadic expiratory wheeze that clears with deep breathing. This could be somewhat stridorous due to his body habitus. His breathing is slightly tachypneic. There are basilar rales. This is likely a combination of heart failure and morbid obesity hypoventilation. Echocardiogram is pending to assess chronic diastolic function and possible new systolic dysfunction. Pneumonia-continue antibiotic therapy. I believe his leukocytosis is related to his prednisone therapy. Gram-positive cocci bacteremia-continue current antibiotics pending identification and sensitivities. Chronic kidney failure-the patient received 2 L of IV fluid. Creatinine is still increasing. His admission creatinine may have been diluted due to hypervolemia. I will have nephrology see the patient tomorrow and monitor his numbers. I will give him a single dose of IV Lasix today in addition to his oral dose and no further fluids at this time. Diabetes mellitus type 2-continue Accu-Cheks. I have added some NPH insulin and decreased his Humulin R slightly. He remains on sliding scale. Adjust medications based on sliding scale requirements. 12/29/2018- Congested breath sounds today. I will give increase Lasix. He has had a positive fluid balance but not overwhelming. Unfortunately his creatinine continues to climb. I will asked nephrology to see the patient tomorrow. I have ordered an x-ray and reordered blood work. We will try additional doses of furosemide at this time. He will continue his antibiotics. The echocardiogram was just performed. I will look for the results. Pneumonia-continue antibiotics. We will decrease the steroids and his leukocytosis should improve. Diabetes mellitus-with decreasing the prednisone his sugars should improve. I did increase the regular insulin to 65 units. (He takes 90 at home twice a day). I have not changed the NPH insulin. Continue to monitor fingersticks. - Time Time Spent with patient: 25-34 minutes Medications reviewed and adjusted accordingly: Yes Anticipated discharge: Home with Homehealth
[2018-12-30] MEDS: ATORVASTATIN CALCIUM 20 MG TABLET PO SCH (21:42)
[2018-12-30] MEDS: METOPROLOL TARTRATE 25 MG TABLET PO SCH (21:43)
[2018-12-30] MEDS: HYDRALAZINE HCL INJ/PF 20 MG/1 ML SDV IV PRN (22:51)
[2018-12-31] MEDS: IPRATROPIUM/ALBUTEROL 0.5-2.5 MG/3 ML AMPUL NEB SCH ×4 (01:58→20:32)
[2018-12-31 04:37] LABS: HEMATOCRIT 36.5 % (37.9-51.0); HEMOGLOBIN 11.6 g/dL (13.5-17.0); MEAN CORPUSCULAR HEMOGLOBIN 29.9 pg (27.0-33.4); MEAN CORPUSCULAR HGB CONC 31.9 g/dL (32.0-36.0); MEAN CORPUSCULAR VOLUME 94 fl (80-97); PLATELET COUNT 210 10^3/uL (150-450); RED BLOOD COUNT 3.88 10^6/uL (4.35-5.55); RED CELL DISTRIBUTION WIDTH 15.7 % (11.5-14.0); WHITE BLOOD COUNT 8.9 10^3/uL (4.0-10.5)
[2018-12-31 04:59] LABS: ANION GAP 10 (5-19); BLOOD UREA NITROGEN 70 mg/dL (7-20); CALCIUM 8.5 mg/dL (8.4-10.2); CARBON DIOXIDE 23 mmol/L (22-30); CHLORIDE 108 mmol/L (98-107); GLUCOSE 237 mg/dL (75-110); POTASSIUM 4.5 mmol/L (3.6-5.0)
[2018-12-31] MEDS: HEPARIN SOD (PORCINE) 5,000 UNIT/ML 1 ML VIAL SUBCUT SCH ×3 (05:13→22:06)
[2018-12-31] MEDS: HYDRALAZINE HCL INJ/PF 20 MG/1 ML SDV IV PRN (05:13)
[2018-12-31] MEDS: BUDESONIDE NEB 0.5 MG/2 ML AMPUL NEB SCH ×2 (07:38→20:32)
[2018-12-31] MEDS: INSULIN REG, HUMAN 100 UNIT/ML 3 ML VIAL (PYX) SUBCUT SCH ×4 (08:40→22:11)
[2018-12-31] MEDS: INSULIN NPH (ISOPHANE), HUMAN 100 UNIT/ML 3 ML SUBCUT SCH ×2 (08:40→16:58)
[2018-12-31] MEDS: FAMOTIDINE 20 MG TABLET PO SCH ×2 (09:05→22:06)
[2018-12-31] MEDS: METOPROLOL TARTRATE 25 MG TABLET PO SCH ×3 (09:06→22:05)
[2018-12-31] MEDS: PREDNISONE 20 MG TABLET PO SCH ×2 (09:06→17:01)
[2018-12-31] MEDS: GUAIFENESIN 600 MG TABLET.SA PO SCH ×2 (09:06→22:06)
[2018-12-31] MEDS: LISINOPRIL 5 MG TABLET PO SCH (09:06)
[2018-12-31] MEDS ORDERED: DILTIAZEM HCL INJ 25 MG/5 ML VIAL ONE (13:00)
[2018-12-31] MEDS ORDERED: DILTIAZEM HCL INJ 25 MG/5 ML VIAL IV ONE (13:30)
--- NOTE | 2018-12-31 15:43 | PDOC PROGRESS REPORT ---
Subjective Progress Note for:: 12/31/18 Subjective:: No adverse events overnight. No new complaints. Vital signs been stable, up until late this morning when he spontaneously went into atrial fibrillation. He was asymptomatic. He denied feeling any palpitations. He was just sitting in the chair whenever it happened. He is not been running any fevers. He still has a congested cough. Reason For Visit: PNEUMONIA Physical Exam Vital Signs: Temp Pulse Resp BP Pulse Ox 97.4 F 81 16 148/71 H 93 12/31/18 12:02 12/31/18 14:00 12/31/18 13:37 12/31/18 12:02 12/31/18 13:37 Intake & Output 12/30/18 12/31/18 01/01/19 06:59 06:59 06:59 Intake Total 1814 1790 100 Output Total 2700 1350 Balance -886 440 100 Weight 151.7 kg 152.5 kg General appearance: PRESENT: no acute distress, cooperative, disheveled, morbidly obese Respiratory exam: PRESENT: rhonchi, symmetrical, unlabored. ABSENT: accessory muscle use, chest wall tenderness, clear to auscultation jose, crackles, prolonged expiratory phas, tachypnea, wheezes Cardiovascular exam: PRESENT: irregular rhythm Pulses: PRESENT: normal carotid pulses Vascular exam: PRESENT: normal capillary refill GI/Abdominal exam: PRESENT: normal bowel sounds, soft. ABSENT: distended, guarding, rebound, tenderness Extremities exam: ABSENT: clubbing, pedal edema Musculoskeletal exam: PRESENT: normal inspection. ABSENT: deformity Neurological exam: PRESENT: alert, awake, oriented to person, oriented to place, oriented to situation Psychiatric exam: PRESENT: appropriate affect, normal mood Skin exam: PRESENT: dry, warm Results Laboratory Results: 12/31/18 04:13 12/31/18 04:13 12/31/18 12/31/18 04:13 04:13 WBC 8.9 RBC 3.88 L Hgb 11.6 L Hct 36.5 L MCV 94 MCH 29.9 MCHC 31.9 L RDW 15.7 H Plt Count 210 Sodium 141.3 Potassium 4.5 Chloride 108 H Carbon Dioxide 23 Anion Gap 10 BUN 70 H Creatinine 4.35 H Est GFR ( Amer) 17 L Glucose 237 H Calcium 8.5 12/30/18 15:00 Sputum Gram Stain - Final 12/30/18 15:00 Sputum Sputum Culture - Final 12/26/18 18:44 Blood Blood Culture - Final Streptococcus Mitis Staphylococcus Hominis 12/26/18 12/26/18 12/26/18 14:19 14:19 18:03 Creatine Kinase 179 H CK-MB (CK-2) 2.27 Troponin I 0.033 NT-Pro-B Natriuret Pep 907 H Impressions: Chest X-Ray 12/29/18 00:00 IMPRESSION: CARDIAC ENLARGEMENT. VASCULAR CONGESTION. Slightly improved. Assessment and Plan - Diagnosis (1) Atrial fibrillation Qualifiers: Atrial fibrillation type: unspecified Qualified Code(s): I48.91 - Unspecified atrial fibrillation Is this a current diagnosis for this admission?: Yes Plan: He coughed pretty hard and his heart rate actually came down to between 100 110. I am to give him a dose of IV diltiazem and increase the frequency of his Lopressor to 3 times a day to see what effect this will have. (2) Diabetes mellitus type 2 in obese Is this a current diagnosis for this admission?: Yes Plan: We will monitor his glucoses, may need to adjust his insulin coverage (3) Morbid obesity with BMI of 50.0-59.9, adult Is this a current diagnosis for this admission?: Yes Plan: Strongly encouraged lifestyle modification (4) Pneumonia Qualifiers: Pneumonia type: due to unspecified organism Laterality: left Lung location: lower lobe of lung Qualified Code(s): J18.1 - Lobar pneumonia, unspecified organism Is this a current diagnosis for this admission?: Yes Plan: Currently responding well to current antibiotics, will continue current treatment and monitor his cultures (5) CKD stage 4 due to type 2 diabetes mellitus Is this a current diagnosis for this admission?: Yes Plan: Creatinine had been worsening but is now trending back down towards his baseline which is around 2 - Plan Summary Summary: 12/26/2018- pneumonia-left retrocardiac infiltrate. Difficult to see due to cardiomegaly. Rocephin and azithromycin started. He is not a smoker and so possibly an atypical bacteria versus a pneumococcus. Clearly community-acquired. Exacerbation of asthma-the patient was never a smoker. He has a congested cough. He will receive scheduled DuoNeb's with the addition of budesonide and as needed Xopenex will be available. Oxygen supplementation as required. He will also be on prednisone. Diabetes mellitus type 2 in obese-he takes 90 units of regular insulin twice daily. He does use the U500 concentration. We will provide regular insulin in the normal concentration. In addition he will be on a Humalog sliding scale as well as diabetic diet. Chronic kidney failure-the patient has diabetes and is not on an NG of tension receptor calin or TOI inhibitor. I will start low-dose lisinopril at 2.5 mg. In addition I will start furosemide 20 mg daily. Chronic diastolic heart failure-patient had an echo from several years ago that revealed grade 1/4 diastolic failure with normal ejection fraction. I will repeat an echocardiogram as this may help determine the ideal medication regimen for the patient. We will currently hold on beta-calin due to the underlying respiratory disease. Morbid obesity-the patient's BMI is 51.6. He states that he has already lost over 100 pounds. We will continue a cardiac/diabetic diet. I have ordered a specialty bed due to his body habitus. 12/27/2018 Pneumonia-the patient will continue on antibiotics when blood culture was positive earlier today. It is unclear if this is a contaminant or not. Exacerbation of asthma-although the patient has never smoked he was in the [place] and in cramped quarters with many smokers. He also worked with a specialist. I told him that is likely combination of COPD and asthma. Continue aggressive therapy with nebulizers and steroids. Diabetes mellitus type 2-I am going to add NPH insulin to the Humulin R that the patient is taking. This will be a lot more affordable than long-acting insulins. We will continue to monitor the Accu-Cheks and adjust medication accordingly. Chronic kidney failure-I have ordered IV fluid. The patient had a slightly elevated lactic acid. I explained to the patient that we will give him fluid and will likely need to use diuretics afterward to ensure he does not have an exacerbation of any heart failure. The patient has a very large cardiac silhouette. His last echocardiogram showed diastolic failure. I have ordered an echocardiogram to assess for systolic failure as well. 12/28/2018- The patient has sporadic expiratory wheeze that clears with deep breathing. This could be somewhat stridorous due to his body habitus. His breathing is slightly tachypneic. There are basilar rales. This is likely a combination of heart failure and morbid obesity hypoventilation. Echocardiogram is pending to assess chronic diastolic function and possible new systolic dysfunction. Pneumonia-continue antibiotic therapy. I believe his leukocytosis is related to his prednisone therapy. Gram-positive cocci bacteremia-continue current antibiotics pending identification and sensitivities. Chronic kidney failure-the patient received 2 L of IV fluid. Creatinine is still increasing. His admission creatinine may have been diluted due to hypervolemia. I will have nephrology see the patient tomorrow and monitor his numbers. I will give him a single dose of IV Lasix today in addition to his oral dose and no further fluids at this time. Diabetes mellitus type 2-continue Accu-Cheks. I have added some NPH insulin and decreased his Humulin R slightly. He remains on sliding scale. Adjust medications based on sliding scale requirements. 12/29/2018- Congested breath sounds today. I will give increase Lasix. He has had a positive fluid balance but not overwhelming. Unfortunately his creatinine continues to climb. I will asked nephrology to see the patient tomorrow. I have ordered an x-ray and reordered blood work. We will try additional doses of furosemide at this time. He will continue his antibiotics. The echocardiogram was just performed. I will look for the results. Pneumonia-continue antibiotics. We will decrease the steroids and his leukocytosis should improve. Diabetes mellitus-with decreasing the prednisone his sugars should improve. I did increase the regular insulin to 65 units. (He takes 90 at home twice a day). I have not changed the NPH insulin. Continue to monitor fingersticks. - Time Time Spent with patient: 25-34 minutes
[2018-12-31] MEDS: CEFTRIAXONE 1 GM/D5W RTU 1 GM/50 ML RTUPB IV SCH (17:01)
[2018-12-31] MEDS: AZITHROMYCIN 500 MG in DEXTROSE 5%-WATER 250 ML IV SCH (17:59)
--- NOTE | 2018-12-31 19:53 | PDOC CONSULTATION ---
Consultation Consult Date: 12/31/18 Provider Consulted: MAYRA GABRIEL Consult reason:: I was asked to see the patient due to worsening kidney function in a patient with underlying chronic kidney disease. History of Present Illness Admission Date/PCP: 12/26/18 18:34 BAILEY GARCIA MD History of Present Illness: SANTA SANTANA is a 58 year old male with history of congestive heart failure, diabetes mellitus type 2, hypertension, chronic kidney disease, obesity who was admitted on December 26 because of increasing shortness of breath. Initial evaluation revealed a chest x-ray with retrocardiac opacity suspicious for pneumonia. There was also an enlarged cardiac silhouette with central venous congestion. Patient was then admitted and was treated for pneumonia with IV ceftriaxone and azithromycin. Patient was also thought to have asthma in exacerbation so she was also placed on steroids. He has cough which is currently better and some wheezing which is also better and improved. Patient also came in with a BUN of 29 and creatinine of 2.85. In April 2018 he he has a creatinine of 3.3. Subsequently patient's BUN/creatinine started to go up. Currently his most recent BUN is 70 and creatinine of 4.35. His creatinine peaked at 4.7, 2 days ago on December 29. Patient was initially being given a low dose of furosemide at 20 mg IV later on changed to oral which was discontinued. He was also started on low-dose lisinopril. He produced adequate amount of urine output anywhere between 1300 to 2700 mL a day. Patient said he has chronic lymphedema and did not really think that his swelling is worse on admission no right now. Patient had an echocardiogram on December 29 t [facility] showed left ventricular ejection fraction of 65%, mild concentric LVH with grade 1/4 mild diastolic dysfunction. Patient has seen my partner, Dr. Bey about a year ago. Unfortunately he was lost to follow-up. He said his baseline kidney function at the time was a GFR of 25%. He denies using NSAIDs. He denies any problem with urination. He said he makes good amount of urine. He denies any blood in the urine nerve foamy urine. He said he eats okay. He has not had any kidney ultrasound done. He has elevated PTH of 702.8, vitamin D of 26.4 and a phosphorus of 5.6. Patient's blood pressure is mildly elevated and he is not on maintenance medication because he said he could not afford the medications. He does take insulin for his diabetes given by PA. His blood sugar is admittedly uncontrolled with hemoglobin A1c of 12 at one point. Patient also has history of kidney stones in the past and has passed kidney stones previously. Past Medical History Cardiac Medical History: Reports: CHF-Diastolic, DVT, Hyperlipidemia, Hypertension-primary Pulmonary Medical History: Reports: Asthma, Bronchitis, Pneumonia Endocrine Medical History: Reports: Diabetes Mellitus Type 2, Hypothyroidism Renal/ Medical History: Reports: Chronic Kidney Disease Stage IV, Nephrol ithiasis Psychiatric Medical History: Reports: Depression Hematology Medical History: Reports Anemia of Chronic Kidney Disease Past Surgical History Past Surgical History: Reports: Herniorrhaphy - Bilateral inguinal, Other - Lithotripsy x1 Social History Information Source: Patient Lives with: Alone Smoking Status: Never Smoker Electronic Cigarette use?: No Frequency of Alcohol Use: None Hx Recreational Drug Use: No Drugs: None Hx Prescription Drug Abuse: No - Advance Directive Resuscitation Status: Full Code Family History Family History: CAD - Father, Hypertension - Mother, Malignancy - Pancreatic cancer in his uncle Family History: No family history of kidney disease. Parental Family History Reviewed: Yes Children Family History Reviewed: Yes Sibling(s) Family History Reviewed.: Yes Medication/Allergy Home Medications: Insulin Regular, Human [Humulin R U-500 Kwikpen] 90 units SQ Q12 12/26/18 Allergies/Adverse Reactions: amoxicillin trihydrate [From Amoxil] Allergy (Verified 11/20/16 09:42) Generalized rash levofloxacin [From Levaquin] Allergy (Verified 11/24/16 06:37) Exanthematic Eruption mushrooms Allergy (Severe, Uncoded 11/20/16 09:42) Edema Review of Systems All systems: reviewed and no additional remarkable complaints except as stated Review of Systems: Constitutional: ABSENT: chills, fatigue, fever(s), headache(s), weight gain, weight loss Eyes: ABSENT: visual disturbances Ears: ABSENT: hearing changes Cardiovascular: ABSENT: chest pain, orthropnea, palpitations; admits shortness of breath and edema Respiratory: ABSENT: Hemoptysis; admits cough Gastrointestinal: ABSENT: abdominal pain, constipation, diarrhea, hematemesis, hematochezia, nausea, vomiting Genitourinary: ABSENT: dysuria, hematuria Musculoskeletal: ABSENT: joint swelling Integumentary: ABSENT: rash, wounds Neurological: ABSENT: abnormal gait, abnormal speech, confusion, dizziness, focal weakness, numbness, syncope Psychiatric: ABSENT: anxiety, depression Endocrine: ABSENT: cold intolerance, heat intolerance, polydipsia, polyuria Hematologic/Lymphatic: ABSENT: easy bleeding, easy bruising, lymphadenopathy Physical Exam Vital Signs: Temp Pulse Resp BP Pulse Ox 97.4 F 83 16 150/83 H 92 12/31/18 15:17 12/31/18 15:17 12/31/18 13:37 12/31/18 15:17 12/31/18 15:17 Intake & Output 12/30/18 12/31/18 01/01/19 06:59 06:59 06:59 Intake Total 1814 1790 100 Output Total 2700 1350 Balance -886 440 100 Weight 151.7 kg 152.5 kg Exam: General appearance: No acute distress, cooperative, well-developed, well- nourished Head exam: PRESENT: atraumatic, normocephalic Eye exam: PRESENT: Conjunctiva slightly pale, EOMI, PERRLA. ABSENT: conjunctival injection, scleral icterus Mouth exam: PRESENT: moist, neck supple, tongue midline Neck exam: PRESENT: full ROM. ABSENT: carotid bruit, JVD, lymphadenopathy, thyromegaly Respiratory exam: PRESENT: clear to auscultation bilaterally. ABSENT: rales, rhonchi, stridor, wheezes Cardiovascular exam: PRESENT: RRR, +S1, +S2. Grade 2/6 systolic murmur Pulses: PRESENT: normal radial pulses, normal dorsalis pedis pulses GI/Abdominal exam: PRESENT: normal bowel sounds, soft. ABSENT: guarding, mass, tenderness Rectal exam: Deferred Extremities exam: PRESENT: full ROM. Trace bilateral lower extremity edema ABSENT: calf tenderness Musculoskeletal: PRESENT: full ROM. ABSENT: deformity Neurological exam: PRESENT: alert, Awake, Oriented to person, Oriented to place, Oriented to time, reflexes normal, CN II-XII grossly intact. ABSENT: motor sensory deficit Psychiatric exam: PRESENT: appropriate affect, normal mood. ABSENT: homicidal ideation, suicidal ideation Skin exam: PRESENT: intact, dry, warm. ABSENT: rash Results Laboratory Results: 12/31/18 04:13 12/31/18 04:13 12/31/18 12/31/18 04:13 04:13 WBC 8.9 RBC 3.88 L Hgb 11.6 L Hct 36.5 L MCV 94 MCH 29.9 MCHC 31.9 L RDW 15.7 H Plt Count 210 Sodium 141.3 Potassium 4.5 Chloride 108 H Carbon Dioxide 23 Anion Gap 10 BUN 70 H Creatinine 4.35 H Est GFR ( Amer) 17 L Glucose 237 H Calcium 8.5 12/30/18 15:00 Sputum Gram Stain - Final 12/30/18 15:00 Sputum Sputum Culture - Final 12/26/18 18:44 Blood Blood Culture - Final Streptococcus Mitis Staphylococcus Hominis 12/26/18 12/26/18 12/26/18 14:19 14:19 18:03 Creatine Kinase 179 H CK-MB (CK-2) 2.27 Troponin I 0.033 NT-Pro-B Natriuret Pep 907 H Impressions: Chest X-Ray 12/29/18 00:00 IMPRESSION: CARDIAC ENLARGEMENT. VASCULAR CONGESTION. Slightly improved. Assessment & Plan - Diagnosis (1) Acute kidney injury superimposed on chronic kidney disease Is this a current diagnosis for this admission?: Yes Plan: Patient is currently nonoliguric. No acute worsening of his kidney function is most likely secondary to prerenal factors including initiation of diuretics, possibly an initial mild diastolic CHF, and contribution of current current infection. Steroids can also contribute to elevated BUN. Patient's kidney function is starting to get better. He does not need any renal placement therapy at this time. At this time I do not think he clinically needs any further diuretics so I agree with discontinuation of Lasix. May continue very low-dose of lisinopril. Continue to follow kidney function and electrolytes. Will obtain baseline urinalysis. (2) Chronic kidney disease, stage IV (severe) Is this a current diagnosis for this admission?: Yes Plan: Likely secondary to a combination of diabetes mellitus type 2, hypertension and obesity. We will get a baseline kidney ultrasound. (3) Anemia in chronic kidney disease Is this a current diagnosis for this admission?: Yes Plan: Mild and currently does not need any treatment. (4) Hyperparathyroidism Is this a current diagnosis for this admission?: Yes Plan: His PTH seems to be disproportionately more elevated than his phosphorus level. With a background of history of nephrolithiasis, I wonder if the patient has a component of primary hyperparathyroidism with possible superimposed secondary hyperparathyroidism. Before starting any treatment like activated vitamin D I think patient needs further work-up including a sestamibi parathyroid scan which can be done as an outpatient. This needs to be followed up. Patient is relatively mildly low vitamin D level. (5) Hyperphosphatemia Is this a current diagnosis for this admission?: Yes Plan: Low phosphorus diet. (6) Pneumonia Qualifiers: Pneumonia type: due to unspecified organism Laterality: left Lung location: lower lobe of lung Qualified Code(s): J18.1 - Lobar pneumonia, unspecified organism Is this a current diagnosis for this admission?: Yes Plan: Continue antibiotics per hospitalist service. (7) Asthma exacerbation Qualifiers: Asthma severity: mild Asthma persistence: intermittent Qualified Code(s): J45.21 - Mild intermittent asthma with (acute) exacerbation Is this a current diagnosis for this admission?: Yes Plan: Management per hospitalist service. (8) Nephrolithiasis Is this a current diagnosis for this admission?: Yes Plan: Needs work-up for possible primary hyperparathyroidism. (9) Diabetes mellitus type 2 in obese Is this a current diagnosis for this admission?: Yes (10) Chronic diastolic heart failure Is this a current diagnosis for this admission?: Yes Plan: Currently compensated. Echocardiogram showed mild diastolic dysfunction. (11) Essential (primary) hypertension Is this a current diagnosis for this admission?: Yes (12) Morbid obesity with BMI of 50.0-59.9, adult Is this a current diagnosis for this admission?: Yes - Notes Notes: Thank you very much for this consultation. We will follow the patient with you. - Time Time Spent: Greater than 70 Minutes
[2018-12-31] MEDS: ATORVASTATIN CALCIUM 20 MG TABLET PO SCH (22:06)
[2019-01-01] MEDS: IPRATROPIUM/ALBUTEROL 0.5-2.5 MG/3 ML AMPUL NEB SCH ×4 (03:45→19:40)
[2019-01-01 04:41] LABS: ANION GAP 15 (5-19); BLOOD UREA NITROGEN 69 mg/dL (7-20); CALCIUM 8.7 mg/dL (8.4-10.2); CARBON DIOXIDE 19 mmol/L (22-30); CHLORIDE 109 mmol/L (98-107); GLUCOSE 181 mg/dL (75-110); POTASSIUM 4.7 mmol/L (3.6-5.0)
[2019-01-01 05:12] LABS: APPEARANCE,URINE SLIGHTLY-CLOUDY; BILIRUBIN,URINE NEGATIVE (NEGATIVE); COLOR,URINE STRAW; GLUCOSE, URINE >=500 mg/dL (NEGATIVE); KETONES,URINE NEGATIVE (NEGATIVE); LEUKOCYTE ESTERASE,URINE TRACE (NEGATIVE); NITRITE,URINE NEGATIVE (NEGATIVE); PROTEIN,URINE 100 mg/dL (NEGATIVE); URINE SPECIFIC GRAVITY 1.013; UROBILINOGEN,URINE NEGATIVE mg/dL (<2.0)
[2019-01-01] MEDS: METOPROLOL TARTRATE 25 MG TABLET PO SCH ×3 (05:59→21:27)
[2019-01-01] MEDS: HEPARIN SOD (PORCINE) 5,000 UNIT/ML 1 ML VIAL SUBCUT SCH ×3 (06:00→21:26)
[2019-01-01] MEDS: BUDESONIDE NEB 0.5 MG/2 ML AMPUL NEB SCH ×2 (07:41→19:40)
[2019-01-01] MEDS: INSULIN REG, HUMAN 100 UNIT/ML 3 ML VIAL (PYX) SUBCUT SCH ×4 (08:32→21:25)
--- NOTE | 2019-01-01 08:33 | RADIOLOGY REPORT (SQ) ---
EXAM DESCRIPTION: [employer]/S [employer] COMPLETED DATE/TIME: 12/31/2018 11:12 pm REASON FOR STUDY: JITENDRA/CKD COMPARISON: AP chest 12/29/2018 CT chest 11/20/2016 TECHNIQUE: Dynamic and static grayscale images acquired of the kidneys and bladder and recorded on P ACS. Additional selected color Doppler and spectral images recorded. LIMITATIONS: Large patient FINDINGS: RIGHT KIDNEY: 9.5 cm in length with grossly increased echogenicity. No solid or suspi cious masses. No hydronephrosis. No calcifications. LEFT KIDNEY: 8.1 cm in size with grossly increased echogenicity. No solid or suspicious masses. No hydronephrosis. No calcifications. BLADDER: Moderately distended. OTHER FINDINGS: Enlarged fatty liver IMPRESSION: Echogenic kidneys likely from chronic medical renal disease. No hydronephrosis Fatty liver TECHNICAL DOCUMENTATION: JOB ID: [id number] [employer]- All Rights Reserved Reading location - IP/workstation name: [email or web address]
[2019-01-01] MEDS: INSULIN NPH (ISOPHANE), HUMAN 100 UNIT/ML 3 ML SUBCUT SCH ×2 (08:35→17:59)
[2019-01-01] MEDS: LISINOPRIL 5 MG TABLET PO SCH (09:26)
[2019-01-01] MEDS: GUAIFENESIN 600 MG TABLET.SA PO SCH ×2 (09:27→21:26)
[2019-01-01] MEDS: FAMOTIDINE 20 MG TABLET PO SCH ×2 (09:27→09:30)
[2019-01-01] MEDS: PREDNISONE 20 MG TABLET PO SCH ×2 (09:27→17:59)
--- NOTE | 2019-01-01 12:02 | PDOC PROGRESS REPORT ---
Subjective Progress Note for:: 01/01/19 Subjective:: Patient is feeling fine and feels better. His blood pressure remains to be a little elevated. He makes adequate amount of urine output. Kidney ultrasound was done yesterday which showed relatively small kidneys with increased echogenicity but no hydronephrosis nor masses consistent with chronic kidney disease. Reason For Visit: PNEUMONIA Physical Exam Vital Signs: Temp Pulse Resp BP Pulse Ox 97.5 F 71 18 159/89 H 95 01/01/19 08:25 01/01/19 08:25 01/01/19 08:25 01/01/19 08:25 01/01/19 08:25 Intake & Output 12/31/18 01/01/19 01/02/19 06:59 06:59 06:59 Intake Total 1790 1652 Output Total 1350 1100 Balance 440 552 Weight 152.5 kg 152 kg Exam: General appearance: PRESENT: no acute distress, cooperative, well-developed, well-nourished Head exam: PRESENT: atraumatic, normocephalic Eye exam: PRESENT: conjunctiva slightly pale, PERRLA. ABSENT: scleral icterus Neck exam: ABSENT: JVD Respiratory exam: PRESENT: Normal breath sounds. ABSENT: crackles, rales, rhonchi, unlabored, wheezes Cardiovascular exam: PRESENT: Regular rate rhythm -+S1, +S2. ABSENT: diastolic murmur, systolic murmur GI/Abdominal exam: PRESENT: normal bowel sounds, soft. ABSENT: guarding, mass, tenderness Extremities exam: Trace bilateral lower extremity edema Neurological exam: PRESENT: alert, awake, oriented to person, place and time. Skin exam: PRESENT: dry, warm, Results Laboratory Results: 12/31/18 04:13 01/01/19 03:59 12/31/18 01/01/19 23:15 03:59 Sodium 142.6 Potassium 4.7 Chloride 109 H Carbon Dioxide 19 L Anion Gap 15 BUN 69 H Creatinine 3.67 H Est GFR ( Amer) 21 L Glucose 181 H Calcium 8.7 Urine Color STRAW Urine Appearance SLIGHTLY-CLOUDY Urine pH 6.0 Ur Specific [place] 1.013 Urine Protein 100 H Urine Glucose (UA) >=500 H Urine Ketones NEGATIVE Urine Blood MODERATE H Urine Nitrite NEGATIVE Ur Leukocyte Esterase TRACE H Urine WBC (Auto) 25 Urine RBC (Auto) 1 12/26/18 19:22 Blood Blood Culture - Final NO GROWTH IN 5 DAYS 12/30/18 15:00 Sputum Gram Stain - Final 12/30/18 15:00 Sputum Sputum Culture - Final 12/26/18 12/26/18 12/26/18 14:19 14:19 18:03 Creatine Kinase 179 H CK-MB (CK-2) 2.27 Troponin I 0.033 NT-Pro-B Natriuret Pep 907 H Impressions: Chest X-Ray 12/29/18 00:00 IMPRESSION: CARDIAC ENLARGEMENT. VASCULAR CONGESTION. Slightly improved. Renal Ultrasound 12/31/18 00:00 IMPRESSION: Echogenic kidneys likely from chronic medical renal disease. No hydronephrosis Fatty liver Assessment & Plan - Diagnosis (1) Acute kidney injury superimposed on chronic kidney disease Is this a current diagnosis for this admission?: Yes Plan: Patient is nonoliguric and kidney functions better today. Likely due to acute prerenal factors. Patient does not need diuretics at this time. (2) Chronic kidney disease, stage IV (severe) Is this a current diagnosis for this admission?: Yes Plan: Patient with minimal proteinuria. Likely due to combination of diabetes, hypertension and obesity. Patient has relatively small kidneys consistent with chronic kidney disease. 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 (3) Anemia in chronic kidney disease Is this a current diagnosis for this admission?: Yes (4) Hyperparathyroidism Is this a current diagnosis for this admission?: Yes Plan: Needs to consider primary hyperparathyroidism with concomitant secondary hyperparathyroidism prior to treatment. Patient would need a sestamibi scan once improved from acute illness. Will hold activated vitamin D at this time. (5) Hyperphosphatemia Is this a current diagnosis for this admission?: Yes Plan: Continue low phosphorus diet. (6) Pneumonia Qualifiers: Pneumonia type: due to unspecified organism Laterality: left Lung location: lower lobe of lung Qualified Code(s): J18.1 - Lobar pneumonia, unspecified organism Is this a current diagnosis for this admission?: Yes Plan: On IV antibiotics. (7) Asthma exacerbation Qualifiers: Asthma severity: mild Asthma persistence: intermittent Qualified Code(s): J45.21 - Mild intermittent asthma with (acute) exacerbation Is this a current diagnosis for this admission?: Yes (8) Essential (primary) hypertension Is this a current diagnosis for this admission?: Yes Plan: Start amlodipine 5 mg p.o. daily. May continue lisinopril at a low dose. (9) Nephrolithiasis Is this a current diagnosis for this admission?: Yes (10) Diabetes mellitus type 2 in obese Is this a current diagnosis for this admission?: Yes (11) Chronic diastolic heart failure Is this a current diagnosis for this admission?: Yes (12) Morbid obesity with BMI of 50.0-59.9, adult Is this a current diagnosis for this admission?: Yes - Time Time with patient: 15-25 minutes
[2019-01-01] MEDS ORDERED: ACETAMINOPHEN 325 MG TABLET PO PRN (12:22)
[2019-01-01] MEDS: AMLODIPINE BESYLATE 5 MG TABLET PO SCH (13:05)
--- NOTE | 2019-01-01 17:26 | PDOC PROGRESS REPORT ---
Subjective Progress Note for:: 01/01/19 Subjective:: No adverse events overnight. Converted to NSR. Still has a cough but it has improved. No fevers. Reason For Visit: PNEUMONIA Physical Exam Vital Signs: Temp Pulse Resp BP Pulse Ox 97.5 F 84 20 159/89 H 98 01/01/19 08:25 01/01/19 14:13 01/01/19 14:13 01/01/19 08:25 01/01/19 14:13 Intake & Output 12/31/18 01/01/19 01/02/19 06:59 06:59 06:59 Intake Total 1790 1652 Output Total 1350 1100 Balance 440 552 Weight 152.5 kg 152 kg 152 kg General appearance: PRESENT: no acute distress, cooperative, disheveled, morbidly obese Respiratory exam: PRESENT: rhonchi, symmetrical, unlabored. ABSENT: accessory muscle use, chest wall tenderness, clear to auscultation jose, crackles, prol onged expiratory phas, tachypnea, wheezes Cardiovascular exam: PRESENT: RRR Pulses: PRESENT: normal carotid pulses Vascular exam: PRESENT: normal capillary refill GI/Abdominal exam: PRESENT: normal bowel sounds, soft. ABSENT: distended, guarding, rebound, tenderness Extremities exam: ABSENT: clubbing, pedal edema Musculoskeletal exam: PRESENT: normal inspection. ABSENT: deformity Neurological exam: PRESENT: alert, awake, oriented to person, oriented to place, oriented to situation Psychiatric exam: PRESENT: appropriate affect, normal mood Skin exam: PRESENT: dry, warm Results Laboratory Results: 12/31/18 04:13 01/01/19 03:59 12/31/18 01/01/19 23:15 03:59 Sodium 142.6 Potassium 4.7 Chloride 109 H Carbon Dioxide 19 L Anion Gap 15 BUN 69 H Creatinine 3.67 H Est GFR ( Amer) 21 L Glucose 181 H Calcium 8.7 Urine Color STRAW Urine Appearance SLIGHTLY-CLOUDY Urine pH 6.0 Ur Specific Datil 1.013 Urine Protein 100 H Urine Glucose (UA) >=500 H Urine Ketones NEGATIVE Urine Blood MODERATE H Urine Nitrite NEGATIVE Ur Leukocyte Esterase TRACE H Urine WBC (Auto) 25 Urine RBC (Auto) 1 12/26/18 19:22 Blood Blood Culture - Final NO GROWTH IN 5 DAYS 12/30/18 15:00 Sputum Gram Stain - Final 12/30/18 15:00 Sputum Sputum Culture - Final 12/26/18 12/26/18 12/26/18 14:19 14:19 18:03 Creatine Kinase 179 H CK-MB (CK-2) 2.27 Troponin I 0.033 NT-Pro-B Natriuret Pep 907 H Impressions: Chest X-Ray 12/29/18 00:00 IMPRESSION: CARDIAC ENLARGEMENT. VASCULAR CONGESTION. Slightly improved. Renal Ultrasound 12/31/18 00:00 IMPRESSION: Echogenic kidneys likely from chronic medical renal disease. No hydronephrosis Fatty liver Assessment and Plan - Diagnosis (1) Atrial fibrillation Qualifiers: Atrial fibrillation type: unspecified Qualified Code(s): I48.91 - Unsp ecified atrial fibrillation Is this a current diagnosis for this admission?: Yes Plan: Resolved. Gave him a single dose of IV diltiazem and then increased his Lopressor to 3 times a day and he converted to sinus rhythm. (2) Diabetes mellitus type 2 in obese Is this a current diagnosis for this admission?: Yes Plan: We will monitor his glucoses, may need to adjust his insulin coverage (3) Morbid obesity with BMI of 50.0-59.9, adult Is this a current diagnosis for this admission?: Yes Plan: Strongly encouraged lifestyle modification (4) Pneumonia Qualifiers: Pneumonia type: due to unspecified organism Laterality: left Lung location: lower lobe of lung Qualified Code(s): J18.1 - Lobar pneumonia, unspecified organism Is this a current diagnosis for this admission?: Yes Plan: Currently responding well to current antibiotics, will continue current treatment and monitor his cultures (5) CKD stage 4 due to type 2 diabetes mellitus Is this a current diagnosis for this admission?: Yes Plan: Creatinine had been worsening but is now trending back down towards his baseline which is around 2 - Plan Summary Summary: 12/26/2018- pneumonia-left retrocardiac infiltrate. Difficult to see due to cardiomegaly. Rocephin and azithromycin started. He is not a smoker and so possibly an atypical bacteria versus a pneumococcus. Clearly community-acquired. Exacerbation of asthma-the patient was never a smoker. He has a congested cough. He will receive scheduled DuoNeb's with the addition of budesonide and as needed Xopenex will be available. Oxygen supplementation as required. He will also be on prednisone. Diabetes mellitus type 2 in obese-he takes 90 units of regular insulin twice daily. He does use the U500 concentration. We will provide regular insulin in the normal concentration. In addition he will be on a Humalog sliding scale as well as diabetic diet. Chronic kidney failure-the patient has diabetes and is not on an NG of tension receptor calin or TOI inhibitor. I will start low-dose lisinopril at 2.5 mg. In addition I will start furosemide 20 mg daily. Chronic diastolic heart failure-patient had an echo from several years ago that revealed grade 1/4 diastolic failure with normal ejection fraction. I will repeat an echocardiogram as this may help determine the ideal medication regimen for the patient. We will currently hold on beta-calin due to the underlying respiratory disease. Morbid obesity-the patient's BMI is 51.6. He states that he has already lost over 100 pounds. We will continue a cardiac/diabetic diet. I have ordered a specialty bed due to his body habitus. 12/27/2018 Pneumonia-the patient will continue on antibiotics when blood culture was positive earlier today. It is unclear if this is a contaminant or not. Exacerbation of asthma-although the patient has never smoked he was in the [place] and in cramped quarters with many smokers. He also worked with a specialist. I told him that is likely combination of COPD and asthma. Continue aggressive th erapy with nebulizers and steroids. Diabetes mellitus type 2-I am going to add NPH insulin to the Humulin R that the patient is taking. This will be a lot more affordable than long-acting insulins. We will continue to monitor the Accu-Cheks and adjust medication accordingly. Chronic kidney failure-I have ordered IV fluid. The patient had a slightly elevated lactic acid. I explained to the patient that we will give him fluid and will likely need to use diuretics afterward to ensure he does not have an exacerbation of any heart failure. The patient has a very large cardiac silhouette. His last echocardiogram showed diastolic failure. I have ordered an echocardiogram to assess for systolic failure as well. 12/28/2018- The patient has sporadic expiratory wheeze that clears with deep breathing. This could be somewhat stridorous due to his body habitus. His breathing is slightly tachypneic. There are basilar rales. This is likely a combination of heart failure and morbid obesity hypoventilation. Echocardiogram is pending to assess chronic diastolic function and possible new systolic dysfunction. Pneumonia-continue antibiotic therapy. I believe his leukocytosis is related to his prednisone therapy. Gram-positive cocci bacteremia-continue current antibiotics pending identific ation and sensitivities. Chronic kidney failure-the patient received 2 L of IV fluid. Creatinine is still increasing. His admission creatinine may have been diluted due to hypervolemia. I will have nephrology see the patient tomorrow and monitor his numbers. I will give him a single dose of IV Lasix today in addition to his oral dose and no further fluids at this time. Diabetes mellitus type 2-continue Accu-Cheks. I have added some NPH insulin and decreased his Humulin R slightly. He remains on sliding scale. Adjust medications based on sliding scale requirements. 12/29/2018- Congested breath sounds today. I will give increase Lasix. He has had a positive fluid balance but not overwhelming. Unfortunately his creatinine continues to climb. I will asked nephrology to see the patient tomorrow. I have ordered an x-ray and reordered blood work. We will try additional doses of furosemide at this time. He will continue his antibiotics. The echocardiogram was just performed. I will look for the results. Pneumonia-continue antibiotics. We will decrease the steroids and his shanae kocytosis should improve. Diabetes mellitus-with decreasing the prednisone his sugars should improve. I did increase the regular insulin to 65 units. (He takes 90 at home twice a day). I have not changed the NPH insulin. Continue to monitor fingersticks. - Time Time Spent with patient: 15-24 minutes
[2019-01-01] MEDS: AZITHROMYCIN 250 MG TABLET PO SCH (17:59)
[2019-01-01] MEDS: CEFTRIAXONE 1 GM/D5W RTU 1 GM/50 ML RTUPB IV SCH (18:00)
[2019-01-01] MEDS: ATORVASTATIN CALCIUM 20 MG TABLET PO SCH (21:27)
[2019-01-02] MEDS: IPRATROPIUM/ALBUTEROL 0.5-2.5 MG/3 ML AMPUL NEB SCH ×4 (02:11→20:03)
[2019-01-02] MEDS: METOPROLOL TARTRATE 25 MG TABLET PO SCH ×3 (05:48→21:22)
[2019-01-02] MEDS: HEPARIN SOD (PORCINE) 5,000 UNIT/ML 1 ML VIAL SUBCUT SCH ×3 (05:48→21:21)
[2019-01-02] MEDS: BUDESONIDE NEB 0.5 MG/2 ML AMPUL NEB SCH ×2 (08:32→20:03)
[2019-01-02] MEDS: AMLODIPINE BESYLATE 5 MG TABLET PO SCH (09:38)
[2019-01-02] MEDS: LISINOPRIL 5 MG TABLET PO SCH (09:39)
[2019-01-02] MEDS: GUAIFENESIN 600 MG TABLET.SA PO SCH ×2 (09:39→21:22)
[2019-01-02] MEDS: PREDNISONE 20 MG TABLET PO SCH ×2 (09:39→17:12)
[2019-01-02] MEDS: FAMOTIDINE 20 MG TABLET PO SCH (09:40)
[2019-01-02] MEDS: INSULIN NPH (ISOPHANE), HUMAN 100 UNIT/ML 3 ML SUBCUT SCH ×2 (09:40→17:05)
[2019-01-02] MEDS: INSULIN REG, HUMAN 100 UNIT/ML 3 ML VIAL (PYX) SUBCUT SCH ×4 (09:42→21:21)
[2019-01-02 10:20] LABS: ANION GAP 11 (5-19); BLOOD UREA NITROGEN 69 mg/dL (7-20); CALCIUM 8.9 mg/dL (8.4-10.2); CARBON DIOXIDE 21 mmol/L (22-30); CHLORIDE 108 mmol/L (98-107); GLUCOSE 219 mg/dL (75-110); POTASSIUM 4.3 mmol/L (3.6-5.0)
--- NOTE | 2019-01-02 15:57 | PDOC PROGRESS REPORT ---
Subjective Progress Note for:: 01/02/19 Subjective:: Patient is doing well today without any complaints. He is asking if he can go home. He has good urine output for the last 24 hours. Reason For Visit: PNEUMONIA Physical Exam Vital Signs: Temp Pulse Resp BP Pulse Ox 97.6 F 82 14 151/73 H 94 01/02/19 11:01 01/02/19 13:32 01/02/19 13:32 01/02/19 11:01 01/02/19 13:32 Intake & Output 01/01/19 01/02/19 01/03/19 06:59 06:59 06:59 Intake Total 1652 1190 Output Total 1100 2400 Balance 552 -1210 Weight 152 kg 151.6 kg Exam: General appearance: PRESENT: no acute distress, cooperative, well-developed, well-nourished Head exam: PRESENT: atraumatic, normocephalic Eye exam: PRESENT: conjunctiva slightly pale, PERRLA. ABSENT: scleral icterus Neck exam: ABSENT: JVD Respiratory exam: PRESENT: Normal breath sounds. ABSENT: crackles, rales, rhonchi, unlabored, wheezes Cardiovascular exam: PRESENT: Regular rate rhythm -+S1, +S2. Soft grade 2/6 systolic murmur GI/Abdominal exam: PRESENT: normal bowel sounds, soft. ABSENT: guarding, mass, tenderness Extremities exam: Trace lower extremity edema, most likely his baseline Neurological exam: PRESENT: alert, awake, oriented to person, place and time. Skin exam: PRESENT: dry, warm, Results Laboratory Results: 12/31/18 04:13 01/02/19 09:06 01/02/19 09:06 Sodium 140.0 Potassium 4.3 Chloride 108 H Carbon Dioxide 21 L Anion Gap 11 BUN 69 H Creatinine 3.53 H Est GFR ( Amer) 22 L Glucose 219 H Calcium 8.9 12/26/18 12/26/18 12/26/18 14:19 14:19 18:03 Creatine Kinase 179 H CK-MB (CK-2) 2.27 Troponin I 0.033 NT-Pro-B Natriuret Pep 907 H Impressions: Chest X-Ray 12/29/18 00:00 IMPRESSION: CARDIAC ENLARGEMENT. VASCULAR CONGESTION. Slightly improved. Renal Ultrasound 12/31/18 00:00 IMPRESSION: Echogenic kidneys likely from chronic medical renal disease. No hydronephrosis Fatty liver Assessment & Plan - Diagnosis (1) Acute kidney injury superimposed on chronic kidney disease Is this a current diagnosis for this admission?: Yes Plan: Patient is nonoliguric and kidney functions continues to improve. Patient is likely to be very close to his baseline kidney function. Likely due to acute prerenal factors. Patient does not need diuretics at this time. (2) Chronic kidney disease, stage IV (severe) Is this a current diagnosis for this admission?: Yes Plan: Patient with minimal proteinuria. Likely due to combination of diabetes, hypertension and obesity. Patient has relatively small kidneys consistent with chronic kidney disease. I advised patient that he needs to follow-up with the [facility] attendant as an outpatient and he tells me he will work [facility]. Once discharge we will be happy to see the patient for follow-up in the next 2 to 3 weeks. (3) Anemia in chronic kidney disease Is this a current diagnosis for this admission?: Yes (4) Hyperparathyroidism Is this a current diagnosis for this admission?: Yes Plan: Needs to consider primary hyperparathyroidism with concomitant secondary hyperparathyroidism prior to treatment. Patient would need a sestamibi scan once improved from acute illness. Will hold activated vitamin D at this time. (5) Hyperphosphatemia Is this a current diagnosis for this admission?: Yes Plan: Continue low phosphorus diet. (6) Pneumonia Qualifiers: Pneumonia type: due to unspecified organism Laterality: left Lung location: lower lobe of lung Qualified Code(s): J18.1 - Lobar pneumonia, unspecified organism Is this a current diagnosis for this admission?: Yes Plan: On IV antibiotics. (7) Asthma exacerbation Qualifiers: Asthma severity: mild Asthma persistence: intermittent Qualified Code(s): J45.21 - Mild intermittent asthma with (acute) exacerbation Is this a current diagnosis for this admission?: Yes Plan: Seems clinically improved. (8) Essential (primary) hypertension Is this a current diagnosis for this admission?: Yes Plan: Continue amlodipine 5 mg p.o. daily. May continue lisinopril at a low dose. (9) Nephrolithiasis Is this a current diagnosis for this admission?: Yes (10) Diabetes mellitus type 2 in obese Is this a current diagnosis for this admission?: Yes (11) Chronic diastolic heart failure Is this a current diagnosis for this admission?: Yes (12) Morbid obesity with BMI of 50.0-59.9, adult Is this a current diagnosis for this admission?: Yes - Notes Notes: From nephrology standpoint no further recommendations. Once discharge advised patient to follow-up in our office in the next 2 to 3 weeks with repeat CBC, BMP, phosphorus, and PTH. - Time Time with patient: 15-25 minutes
[2019-01-02] MEDS: AZITHROMYCIN 250 MG TABLET PO SCH (17:12)
[2019-01-02] MEDS: CEFTRIAXONE 1 GM/D5W RTU 1 GM/50 ML RTUPB IV SCH (17:13)
--- NOTE | 2019-01-02 17:24 | PDOC PROGRESS REPORT ---
Subjective Progress Note for:: 01/02/19 Subjective:: No adverse events overnight. No new complaints. He is off oxygen. Breathing has been comfortable. Reason For Visit: PNEUMONIA Physical Exam Vital Signs: Temp Pulse Resp BP Pulse Ox 97.6 F 84 18 162/91 H 94 01/02/19 15:26 01/02/19 15:26 01/02/19 15:26 01/02/19 15:26 01/02/19 15:26 Intake & Output 01/01/19 01/02/19 01/03/19 06:59 06:59 06:59 Intake Total 1652 1190 Output Total 1100 2400 Balance 552 -1210 Weight 152 kg 151.6 kg General appearance: PRESENT: no acute distress, cooperative, disheveled, morbidly obese Respiratory exam: PRESENT: rhonchi, symmetrical, unlabored. ABSENT: accessory muscle use, chest wall tenderness, clear to auscultation jose, crackles, prolong ed expiratory phas, tachypnea, wheezes Cardiovascular exam: PRESENT: RRR Pulses: PRESENT: normal carotid pulses Vascular exam: PRESENT: normal capillary refill GI/Abdominal exam: PRESENT: normal bowel sounds, soft. ABSENT: distended, guarding, rebound, tenderness Extremities exam: ABSENT: clubbing, pedal edema (has chronic nonpitting edema in the legs proximal to the ankles) Musculoskeletal exam: PRESENT: normal inspection. ABSENT: deformity Neurological exam: PRESENT: alert, awake, oriented to person, oriented to place, oriented to situation Psychiatric exam: PRESENT: appropriate affect, normal mood Skin exam: PRESENT: dry, warm Results Laboratory Results: 12/31/18 04:13 01/02/19 09:06 01/02/19 09:06 Sodium 140.0 Potassium 4.3 Chloride 108 H Carbon Dioxide 21 L Anion Gap 11 BUN 69 H Creatinine 3.53 H Est GFR ( Amer) 22 L Glucose 219 H Calcium 8.9 12/26/18 12/26/18 12/26/18 14:19 14:19 18:03 Creatine Kinase 179 H CK-MB (CK-2) 2.27 Troponin I 0.033 NT-Pro-B Natriuret Pep 907 H Impressions: Chest X-Ray 12/29/18 00:00 IMPRESSION: CARDIAC ENLARGEMENT. VASCULAR CONGESTION. Slightly improved. Renal Ultrasound 12/31/18 00:00 IMPRESSION: Echogenic kidneys likely from chronic medical renal disease. No hydronephrosis Fatty liver Assessment and Plan - Diagnosis (1) Atrial fibrillation Qualifiers: Atrial fibrillation type: unspecified Qualified Code(s): I48.91 - Unspecified atrial fibrillation Is this a current diagnosis for this admission?: Yes Plan: Resolved. Gave him a single dose of IV diltiazem and then increased his Lopressor to 3 times a day and he converted to sinus rhythm. (2) Diabetes mellitus type 2 in obese Is this a current diagnosis for this admission?: Yes Plan: We will monitor his glucoses, may need to adjust his insulin coverage (3) Morbid obesity with BMI of 50.0-59.9, adult Is this a current diagnosis for this admission?: Yes Plan: Strongly encouraged lifestyle modification (4) Pneumonia Qualifiers: Pneumonia type: due to unspecified organism Laterality: left Lung location: lower lobe of lung Qualified Code(s): J18.1 - Lobar pneumonia, unspecified organism Is this a current diagnosis for this admission?: Yes Plan: Currently responding well to current antibiotics, will continue current treatment and monitor his cultures (5) CKD stage 4 due to type 2 diabetes mellitus Is this a current diagnosis for this admission?: Yes Plan: Creatinine continues to slowly trend down. Looks like normal for him is around 3. If he is trending down again tomorrow, will likely discharge home at that time. - Plan Summary Summary: 12/26/2018- pneumonia-left retrocardiac infiltrate. Difficult to see due to cardiomegaly. Rocephin and azithromycin started. He is not a smoker and so possibly an atypical bacteria versus a pneumococcus. Clearly community-acquired. Exacerbation of asthma-the patient was never a smoker. He has a congested cough. He will receive scheduled DuoNeb's with the addition of budesonide and as needed Xopenex will be available. Oxygen supplementation as required. He will also be on prednisone. Diabetes mellitus type 2 in obese-he takes 90 units of regular insulin twice daily. He does use the U500 concentration. We will provide regular insulin in the normal concentration. In addition he will be on a Humalog sliding scale as well as diabetic diet. Chronic kidney failure-the patient has diabetes and is not on an NG of tension receptor calin or TOI inhibitor. I will start low-dose lisinopril at 2.5 mg. In addition I will start furosemide 20 mg daily. Chronic diastolic heart failure-patient had an echo from several years ago that revealed grade 1/4 diastolic failure with normal ejection fraction. I will repeat an echocardiogram as this may help determine the ideal medication regimen for the patient. We will currently hold on beta-calin due to the underlying respiratory disease. Morbid obesity-the patient's BMI is 51.6. He states that he has already lost over 100 pounds. We will continue a cardiac/diabetic diet. I have ordered a specialty bed due to his body habitus. 12/27/2018 Pneumonia-the patient will continue on antibiotics when blood culture was positive earlier today. It is unclear if this is a contaminant or not. Exacerbation of asthma-although the patient has never smoked he was in the [place] and in cramped quarters with many smokers. He also worked with a specialist. I told him that is likely combination of COPD and asthma. Continue aggressive therapy with nebulizers and steroids. Diabetes mellitus type 2-I am going to add NPH insulin to the Humulin R that the patient is taking. This will be a lot more affordable than long-acting insulins. We will continue to monitor the Accu-Cheks and adjust medication accordingly. Chronic kidney failure-I have ordered IV fluid. The patient had a slightly elevated lactic acid. I explained to the patient that we will give him fluid and will likely need to use diuretics afterward to ensure he does not have an exacerbation of any heart failure. The patient has a very large cardiac silhouette. His last echocardiogram showed diastolic failure. I have ordered an echocardiogram to assess for systolic failure as well. 12/28/2018- The patient has sporadic expiratory wheeze that clears with deep breathing. This could be somewhat stridorous due to his body habitus. His breathing is slightly tachypneic. There are basilar rales. This is likely a combination of heart failure and morbid obesity hypoventilation. Echocardiogram is pending to assess chronic diastolic function and possible new systolic dysfunction. Pneumonia-continue antibiotic therapy. I believe his leukocytosis is related to his prednisone therapy. Gram-positive cocci bacteremia-continue current antibiotics pending identification and sensitivities. Chronic kidney failure-the patient received 2 L of IV fluid. Creatinine is still increasing. His admission creatinine may have been diluted due to hypervolemia. I will have nephrology see the patient tomorrow and monitor his numbers. I will give him a single dose of IV Lasix today in addition to his oral dose and no further fluids at this time. Diabetes mellitus type 2-continue Accu-Cheks. I have added some NPH insulin and decreased his Humulin R slightly. He remains on sliding scale. Adjust medications based on sliding scale requirements. 12/29/2018- Congested breath sounds today. I will give increase Lasix. He has had a positive fluid balance but not overwhelming. Unfortunately his creatinine continues to climb. I will asked nephrology to see the patient tomorrow. I have ordered an x-ray and reordered blood work. We will try additional doses of furosemide at this time. He will continue his antibiotics. The echocardiogram was just performed. I will look for the results. Pneumonia-continue antibiotics. We will decrease the steroids and his leukocytosis should improve. Diabetes mellitus-with decreasing the prednisone his sugars should improve. I did increase the regular insulin to 65 units. (He takes 90 at home twice a day). I have not changed the NPH insulin. Continue to monitor fingersticks. - Time Time Spent with patient: 15-24 minutes
[2019-01-02] MEDS: HYDRALAZINE HCL INJ/PF 20 MG/1 ML SDV IV PRN (18:30)
[2019-01-02] MEDS: ATORVASTATIN CALCIUM 20 MG TABLET PO SCH (21:22)
[2019-01-03] MEDS: IPRATROPIUM/ALBUTEROL 0.5-2.5 MG/3 ML AMPUL NEB SCH ×3 (02:01→14:12)
[2019-01-03] MEDS: METOPROLOL TARTRATE 25 MG TABLET PO SCH ×2 (06:01→14:54)
[2019-01-03] MEDS: HEPARIN SOD (PORCINE) 5,000 UNIT/ML 1 ML VIAL SUBCUT SCH ×2 (06:03→14:54)
[2019-01-03] MEDS ORDERED: DILTIAZEM HCL 60 MG TABLET ONE (06:17)
[2019-01-03] MEDS ORDERED: DILTIAZEM HCL 60 MG TABLET PO ONE (06:30)
[2019-01-03] MEDS ORDERED: METOPROLOL TARTRATE PF/INJ 5 MG/5 ML SDV IV ONE ×2 (06:48→07:00)
[2019-01-03] MEDS: BUDESONIDE NEB 0.5 MG/2 ML AMPUL NEB SCH (07:54)
[2019-01-03] MEDS: INSULIN NPH (ISOPHANE), HUMAN 100 UNIT/ML 3 ML SUBCUT SCH (08:23)
[2019-01-03] MEDS: INSULIN REG, HUMAN 100 UNIT/ML 3 ML VIAL (PYX) SUBCUT SCH ×2 (08:25→12:43)
[2019-01-03 09:54] LABS: ANION GAP 13 (5-19); BLOOD UREA NITROGEN 68 mg/dL (7-20); CALCIUM 7.9 mg/dL (8.4-10.2); CARBON DIOXIDE 21 mmol/L (22-30); CHLORIDE 106 mmol/L (98-107); GLUCOSE 212 mg/dL (75-110); POTASSIUM 4.6 mmol/L (3.6-5.0)
[2019-01-03] MEDS: FAMOTIDINE 20 MG TABLET PO SCH (10:26)
[2019-01-03] MEDS: AMLODIPINE BESYLATE 5 MG TABLET PO SCH (10:26)
[2019-01-03] MEDS: GUAIFENESIN 600 MG TABLET.SA PO SCH (10:26)
[2019-01-03] MEDS: LISINOPRIL 5 MG TABLET PO SCH (10:27)
[2019-01-03] MEDS: PREDNISONE 20 MG TABLET PO SCH (10:27)
--- NOTE | 2019-01-03 14:39 | PDOC DISCHARGE SUMMARY ---
Impression - Admit/DC Date/PCP Admission Date/Primary Care Provider: 12/26/18 18:34 BAILEY GARCIA MD Discharge Date: 01/03/19 - Discharge Diagnosis (1) Atrial fibrillation Is this a current diagnosis for this admission?: Yes (2) Diabetes mellitus type 2 in obese Is this a current diagnosis for this admission?: Yes (3) Morbid obesity with BMI of 50.0-59.9, adult Is this a current diagnosis for this admission?: Yes (4) Pneumonia Is this a current diagnosis for this admission?: Yes (5) CKD stage 4 due to type 2 diabetes mellitus Is this a current diagnosis for this admission?: Yes (6) Paroxysmal atrial fibrillation with rapid ventricular response Is this a current diagnosis for this admission?: Yes - Assessment Summary: 12/26/2018- pneumonia-left retrocardiac infiltrate. Difficult to see due to cardiomegaly. Rocephin and azithromycin started. He is not a smoker and so possibly an atypical bacteria versus a pneumococcus. Clearly community-acquired. Exacerbation of asthma-the patient was never a smoker. He has a congested cough. He will receive scheduled DuoNeb's with the addition of budesonide and as needed Xopenex will be available. Oxygen supplementation as required. He will also be on prednisone. Diabetes mellitus type 2 in obese-he takes 90 units of regular insulin twice daily. He does use the U500 concentration. We will provide regular insulin in the normal concentration. In addition he will be on a Humalog sliding scale as well as diabetic diet. Chronic kidney failure-the patient has diabetes and is not on an NG of tension receptor calin or TOI inhibitor. I will start low-dose lisinopril at 2.5 mg. In addition I will start furosemide 20 mg daily. Chronic diastolic heart failure-patient had an echo from several years ago that revealed grade 1/4 diastolic failure with normal ejection fraction. I will repeat an echocardiogram as this may help determine the ideal medication regimen for the patient. We will currently hold on beta-calin due to the underlying respiratory disease. Morbid obesity-the patient's BMI is 51.6. He states that he has already lost over 100 pounds. We will continue a cardiac/diabetic diet. I have ordered a specialty bed due to his body habitus. 12/27/2018 Pneumonia-the patient will continue on antibiotics when blood culture was positive earlier today. It is unclear if this is a contaminant or not. Exacerbation of asthma-although the patient has never smoked he was in the [place] and in cramped quarters with many smokers. He also worked with a specialist. I told him that is likely combination of COPD and asthma. Continue aggressive therapy with nebulizers and steroids. Diabetes mellitus type 2-I am going to add NPH insulin to the Humulin R that the patient is taking. This will be a lot more affordable than long-acting insulins. We will continue to monitor the Accu-Cheks and adjust medication accordingly. Chronic kidney failure-I have ordered IV fluid. The patient had a slightly elevated lactic acid. I explained to the patient that we will give him fluid and will likely need to use diuretics afterward to ensure he does not have an exacerbation of any heart failure. The patient has a very large cardiac silhouette. His last echocardiogram showed diastolic failure. I have ordered an echocardiogram to assess for systolic failure as well. 12/28/2018- The patient has sporadic expiratory wheeze that clears with deep breathing. This could be somewhat stridorous due to his body habitus. His breathing is slightly tachypneic. There are basilar rales. This is likely a combination of heart failure and morbid obesity hypoventilation. Echocardiogram is pending to assess chronic diastolic function and possible new systolic dysfunction. Pneumonia-continue antibiotic therapy. I believe his leukocytosis is related to his prednisone therapy. Gram-positive cocci bacteremia-continue current antibiotics pending identification and sensitivities. Chronic kidney failure-the patient received 2 L of IV fluid. Creatinine is still increasing. His admission creatinine may have been diluted due to hypervolemia. I will have nephrology see the patient tomorrow and monitor his numbers. I will give him a single dose of IV Lasix today in addition to his oral dose and no further fluids at this time. Diabetes mellitus type 2-continue Accu-Cheks. I have added some NPH insulin and decreased his Humulin R slightly. He remains on sliding scale. Adjust medications based on sliding scale requirements. 12/29/2018- Congested breath sounds today. I will give increase Lasix. He has had a positive fluid balance but not overwhelming. Unfortunately his creatinine continues to climb. I will asked nephrology to see the patient tomorrow. I have ordered an x-ray and reordered blood work. We will try additional doses of furosemide at this time. He will continue his antibiotics. The echocardiogram was just performed. I will look for the results. Pneumonia-continue antibiotics. We will decrease the steroids and his leukocytosis should improve. Diabetes mellitus-with decreasing the prednisone his sugars should improve. I did increase the regular insulin to 65 units. (He takes 90 at home twice a day). I have not changed the NPH insulin. Continue to monitor fingersticks. - Additional Information Resuscitation Status: Full Code Discharge Diet: Cardiac, Diabetic Discharge Activity: Balance Activity w/Rest, Slowly Increase Activity Referrals: BAILEY GARCIA MD [Primary Care Provider] - 01/08/19 2:00 pm Prescriptions: Apixaban [Eliquis 2.5 mg Tablet] 2.5 mg PO BID #60 tablet Atorvastatin Calcium [Lipitor 20 mg Tablet] 20 mg PO QHS #30 tablet Metoprolol Tartrate [Lopressor 25 mg Tablet] 25 mg PO Q8 #90 tablet Amlodipine Besylate [Norvasc 5 mg Tablet] 5 mg PO DAILY #30 tablet Lisinopril [Prinivil 5 mg Tablet] 2.5 mg PO DAILY #30 tablet Home Medications: Insulin Regular, Human [Humulin R U-500 Kwikpen] 90 units SQ Q12 12/26/18 Amlodipine Besylate [Norvasc 5 mg Tablet] 5 mg PO DAILY #30 tablet 01/03/19 Apixaban [Eliquis 2.5 mg Tablet] 2.5 mg PO BID #60 tablet 01/03/19 Atorvastatin Calcium [Lipitor 20 mg Tablet] 20 mg PO QHS #30 tablet 01/03/19 Lisinopril [Prinivil 5 mg Tablet] 2.5 mg PO DAILY #30 tablet 01/03/19 Metoprolol Tartrate [Lopressor 25 mg Tablet] 25 mg PO Q8 #90 tablet 01/03/19 History of Present Illiness History of Present Illness: SANTA SANTANA is a 58 year old male with morbid obesity and a history of congestive heart failure, diabetes mellitus, hypertension and chronic kidney disease presents with increasing shortness of breath over the last 4 to 5 days. His primary care provider is Dr. Garcia and his prepared foods supervisor is Dr. Bey. He states that he did not notice any fever or chills. He did feel cold and occasionally his head would sweat at night. He had a moist cough but was not coughing anything up. From Saturday when the shortness of breath began through today he has declined. Evaluation included chest x-ray which showed retrocardiac infiltrate. His serum creatinine was elevated. His serum glucose was elevated. He had a normal white blood cell count. The patient was referred to the hospital service for admission. Hospital Course Hospital Course: He was brought in and treated for his pneumonia and his asthma exacerbation. It took him several days before he finally started to cough it up but then he began to clear up and his breathing improved substantially. He said he had all these different conditions but appeared to not have any medications to address them. We gave him prescriptions for blood pressure medication and his hyperlipidemia. He also had an episode of atrial fibrillation with RVR that responded very well to a single dose of Cardizem and then we put him on Lopressor twice a day. He had another episode later on that responded again to a single dose of IV Cardizem and we increased his Lopressor to 3 times a day. Because his chadsvasc score is at least 2, we decided to anticoagulate him with renally dosed Eliquis. He has follow-up arranged with his primary care provider Dr. Garcia. His labs and examination were reassuring he was discharged in good condition. Physical Exam Vital Signs: Temp Pulse Resp BP Pulse Ox 97.7 F 69 20 146/91 H 94 01/03/19 11:43 01/03/19 14:16 01/03/19 14:16 01/03/19 11:43 01/03/19 14:16 Intake & Output 01/02/19 01/03/19 01/04/19 06:59 06:59 06:59 Intake Total 1190 1060 Output Total 2400 275 Balance -1210 785 Weight 151.6 kg 151.6 kg General appearance: PRESENT: no acute distress, cooperative, disheveled, morbidly obese Respiratory exam: PRESENT: Clear to auscultation bilaterally, symmetrical, unlabored. ABSENT: accessory muscle use, chest wall tenderness, crackles, prolonged expiratory phas, tachypnea, wheezes Cardiovascular exam: PRESENT: RRR Pulses: PRESENT: normal carotid pulses Vascular exam: PRESENT: normal capillary refill GI/Abdominal exam: PRESENT: normal bowel sounds, soft. ABSENT: distended, guarding, rebound, tenderness Extremities exam: ABSENT: clubbing, pedal edema (has chronic nonpitting edema in the legs proximal to the ankles) Musculoskeletal exam: PRESENT: normal inspection. ABSENT: deformity Neurological exam: PRESENT: alert, awake, oriented to person, oriented to place, oriented to situation Psychiatric exam: PRESENT: appropriate affect, normal mood Skin exam: PRESENT: dry, warm Results Laboratory Results: WBC 8.9 10^3/uL (4.0-10.5) 12/31/18 04:13 RBC 3.88 10^6/uL (4.35-5.55) L 12/31/18 04:13 Hgb 11.6 g/dL (13.5-17.0) L 12/31/18 04:13 Hct 36.5 % (37.9-51.0) L 12/31/18 04:13 MCV 94 fl (80-97) 12/31/18 04:13 MCH 29.9 pg (27.0-33.4) 12/31/18 04:13 MCHC 31.9 g/dL (32.0-36.0) L 12/31/18 04:13 RDW 15.7 % (11.5-14.0) H 12/31/18 04:13 Plt Count 210 10^3/uL (150-450) 12/31/18 04:13 Lymph % (Auto) Not Reportable 12/30/18 04:34 [place] % (Auto) Not Reportable 12/30/18 04:34 Eos % (Auto) Not Reportable 12/30/18 04:34 Baso % (Auto) Not Reportable 12/30/18 04:34 Absolute Neuts (auto) Not Reportable 12/30/18 04:34 Absolute Lymphs (auto) Not Reportable 12/30/18 04:34 Absolute Monos (auto) Not Reportable 12/30/18 04:34 Absolute Eos (auto) Not Reportable 12/30/18 04:34 Absolute Basos (auto) Not Reportable 12/30/18 04:34 Total Counted 100 12/30/18 04:34 Seg Neutrophils % Not Reportable 12/30/18 04:34 Seg Neuts % (Manual) 87 % (42-78) H 12/30/18 04:34 Band Neutrophils % 2 % (3-5) L 12/30/18 04:34 Lymphocytes % (Manual) 7 % (13-45) L 12/30/18 04:34 Monocytes % (Manual) 4 % (3-13) 12/30/18 04:34 Eosinophils % (Manual) 0 % (0-6) 12/30/18 04:34 Basophils % (Manual) 0 % (0-2) 12/30/18 04:34 Abs Neuts (Manual) 12.1 10^3/uL (1.7-8.2) H 12/30/18 04:34 Abs Lymphs (Manual) 1.0 10^3/uL (0.5-4.7) 12/30/18 04:34 Abs Monocytes (Manual) 0.5 10^3/uL (0.1-1.4) 12/30/18 04:34 Absolute Eos (Manual) 0.0 10^3/uL (0.0-0.6) 12/30/18 04:34 Abs Basophils (Manual) 0.0 10^3/uL (0.0-0.2) 12/30/18 04:34 Platelet Estimate Cancelled 12/29/18 04:54 Platelet Comment ADEQUATE 12/30/18 04:34 Anisocytosis SLIGHT 12/30/18 04:34 Sodium 139.8 mmol/L (137-145) 01/03/19 09:19 Potassium 4.6 mmol/L (3.6-5.0) 01/03/19 09:19 Chloride 106 mmol/L (98-107) 01/03/19 09:19 Carbon Dioxide 21 mmol/L (22-30) L 01/03/19 09:19 Anion Gap 13 (5-19) 01/03/19 09:19 BUN 68 mg/dL (7-20) H 01/03/19 09:19 Creatinine 3.05 mg/dL (0.52-1.25) H 01/03/19 09:19 Est GFR ( Amer) 25 (>60) L 01/03/19 09:19 Est GFR (MDRD) Non-Af 21 (>60) L 01/03/19 09:19 Glucose 212 mg/dL (75-110) H 01/03/19 09:19 POC Glucose 184 mg/dL (70-110) H 01/03/19 12:31 Hemoglobin A1c % 8.2 % (4.7-6.0) H 12/27/18 04:54 Lactic Acid 1.1 mmol/L (0.7-2.1) 12/28/18 05:43 Calcium 7.9 mg/dL (8.4-10.2) L 01/03/19 09:19 Phosphorus 5.6 mg/dL (2.5-4.5) H 12/30/18 04:34 Magnesium 2.3 mg/dL (1.6-2.3) 12/30/18 04:34 Total Bilirubin 0.4 mg/dL (0.2-1.3) 12/26/18 14:19 Direct Bilirubin 0.3 mg/dL (0.0-0.4) 12/26/18 14:19 Neonat Total Bilirubin Not Reportable 12/26/18 14:19 Neonat Direct Bilirubin Not Reportable 12/26/18 14:19 Neonat Indirect Bili Not Reportable 12/26/18 14:19 AST 22 U/L (17-59) 12/26/18 14:19 ALT 17 U/L (<50) 12/26/18 14:19 Alkaline Phosphatase 88 U/L (38-126) 12/26/18 14:19 Creatine Kinase 179 U/L (55-170) H 12/26/18 14:19 CK-MB (CK-2) 2.27 ng/mL (<4.55) 12/26/18 14:19 Troponin I 0.033 ng/mL 12/26/18 18:03 NT-Pro-B Natriuret Pep 907 pg/mL (5-900) H 12/26/18 14:19 Total Protein 7.2 g/dL (6.3-8.2) 12/26/18 14:19 Albumin 3.7 g/dL (3.5-5.0) 12/30/18 04:34 Triglycerides 218 mg/dL (<150) H 12/27/18 04:54 Cholesterol 193.40 mg/dL (0-200) 12/27/18 04:54 LDL Cholesterol Direct 146 mg/dL (<100) H 12/27/18 04:54 VLDL Cholesterol 43.6 mg/dL (10-31) H 12/27/18 04:54 HDL Cholesterol 24 mg/dL (>40) L 12/27/18 04:54 Vit D 1,25-Dihydroxy 26.4 pg/mL (19.9-79.3) 12/30/18 04:34 PTH Intact 702.8 pg/mL (10.0-65.0) H 12/30/18 04:34 Urine Color STRAW 12/31/18 23:15 Urine Appearance SLIGHTLY-CLOUDY 12/31/18 23:15 Urine pH 6.0 (5.0-9.0) 12/31/18 23:15 Ur Specific [place] 1.013 12/31/18 23:15 Urine Protein 100 mg/dL (NEGATIVE) H 12/31/18 23:15 Urine Glucose (UA) >=500 mg/dL (NEGATIVE) H 12/31/18 23:15 Urine Ketones NEGATIVE mg/dL (NEGATIVE) 12/31/18 23:15 Urine Blood MODERATE (NEGATIVE) H 12/31/18 23:15 Urine Nitrite NEGATIVE (NEGATIVE) 12/31/18 23:15 Urine Bilirubin NEGATIVE (NEGATIVE) 12/31/18 23:15 Urine Urobilinogen NEGATIVE mg/dL (<2.0) 12/31/18 23:15 Ur Leukocyte Esterase TRACE (NEGATIVE) H 12/31/18 23:15 Urine WBC (Auto) 25 /HPF 12/31/18 23:15 Urine RBC (Auto) 1 /HPF 12/31/18 23:15 Squamous Epi Cells Auto <1 /HPF 12/31/18 23:15 Urine Ascorbic Acid NEGATIVE (NEGATIVE) 12/31/18 23:15 Influenza A (Rapid) NEGATIVE (NEGATIVE) 12/26/18 18:03 Influenza B (Rapid) NEGATIVE (NEGATIVE) 12/26/18 18:03 Slides for Path Review Cancelled 12/29/18 04:54 12/26/18 12/26/18 14:19 18:03 CK-MB (CK-2) 2.27 Troponin I 0.033 NT-Pro-B Natriuret Pep 907 H Impressions: Chest X-Ray 12/26/18 13:39 IMPRESSION: Ill-defined retrocardiac opacity suspicious for pneumonia. Enlarged cardiac silhouette with central vascular congestion. Chest X-Ray 12/29/18 00:00 IMPRESSION: CARDIAC ENLARGEMENT. VASCULAR CONGESTION. Slightly improved. Renal Ultrasound 12/31/18 00:00 IMPRESSION: Echogenic kidneys likely from chronic medical renal disease. No hydronephrosis Fatty liver Plan Time Spent: Greater than 30 Minutes Stroke Is this a Stroke Patient?: No Acute Heart Failure - Is this a Heart Failure Patient?: No
[2019-01-03 14:51] VITALS: BP 145/89
== END 2019-01-03 15:30 | disposition home or self-care (01) | DRG 194 ==
LOC: ER 13:16 → EH 18:34 → 3S 20:57 → 5 12-28 18:58
PROVIDERS: ADMIT Hospitalist; ATTEND Hospitalist
DX: J18.1 Lobar pneumonia, unspecified organism (principal); J45.21 Mild intermittent asthma with (acute) exacerbation; I13.0 Hypertensive heart and chronic kidney disease with heart failure and stage 1 through stage 4 chronic kidney disease, or unspecified chronic kidney disease; N18.4 Chronic kidney disease, stage 4 (severe); I50.32 Chronic diastolic (congestive) heart failure; Z68.43 Body mass index [BMI] 50.0-59.9, adult; N17.9 Acute kidney failure, unspecified; I48.0 Paroxysmal atrial fibrillation; E66.01 Morbid (severe) obesity due to excess calories; E11.22 Type 2 diabetes mellitus with diabetic chronic kidney disease; Z79.4 Long term (current) use of insulin; I51.7 Cardiomegaly; D72.828 Other elevated white blood cell count; E78.5 Hyperlipidemia, unspecified; E03.9 Hypothyroidism, unspecified; F32.9 Major depressive disorder, single episode, unspecified; E21.3 Hyperparathyroidism, unspecified; D63.1 Anemia in chronic kidney disease; E83.39 Other disorders of phosphorus metabolism; N20.0 Calculus of kidney
CPT/HCPCS: 36415; 71045; 71046; 76775; 80048; 80053; 80061; 80069; 81001; 82550; 82553; 82652; 82962; 83036; 83605; 83735; 83880; 83970; 84484; 85025; 85027; 87040; 87070; 87077; 87186; 87205; 87804; 93005; 93010; 93306; 94640; 94799; 99291; J0360; J0456; J0696; J1644; J1815; J1940; J2930; J3475; J3490; J7030; J7060; J7120; J7512; J7620